=== PATIENT | male | born 1970 | race Caucasian/White ===

== ENCOUNTER 2018-04-24 09:13 | Emergency (ER) | payer SELFPAY ==
[~2018-04-24] VITALS: Ht 172.7 cm; Wt 111.6 kg
[2018-04-24 09:27] VITALS: BP 141/92
[2018-04-24] MEDS ORDERED: KETOROLAC TROMETH 60MG/2ML VIAL IM ONE (09:45)
== END 2018-04-24 10:21 | disposition home or self-care (01) ==
LOC: ER 09:13
DX: S66.912A Strain of unspecified muscle, fascia and tendon at wrist and hand level, left hand, initial encounter (principal); E11.9 Type 2 diabetes mellitus without complications; I10 Essential (primary) hypertension
CPT/HCPCS: 73130; 96372; 99284; J1885

== ENCOUNTER 2018-07-07 11:10 | Emergency (ER) | payer MEDICAID, OTHER ==
[~2018-07-07] VITALS: Ht 172.7 cm; Wt 113.4 kg
[2018-07-07] MEDS ORDERED: SODIUM CHLORIDE 0.9% 2,000 ML IV ONE (12:15)
[2018-07-07] MEDS ORDERED: TETANUS-DIPTH-ACEL PERTUSSIS 0.5ML SYRG IM ONE (12:15)
[2018-07-07 12:28] LABS: Basophils # (auto) 0.2 uL; Basophils % (auto) 1.3 % (0.0-2.0); Eosinophils # (auto) 0.3 uL; Eosinophils % (auto) 2.3 % (0.0-7.0); Hematocrit 40.5 % (41.0-53.0); Hemoglobin 14.1 g/dL (13.5-17.5); Lymphocytes # (auto) 3.6 uL; Lymphocytes % (auto) 30.3 % (10.0-50.0); Mean Corpuscular Hemoglobin 31.5 pg (28.0-32.0); Mean Corpuscular Hgb Conc. 34.9 g/dL (32.0-36.0); Mean Corpuscular Volume 90.4 fL (80.0-100.0); Monocytes # (auto) 0.9 uL; Monocytes % (auto) 7.7 % (0.0-12.0); Neutrophils % (auto) 58.4 % (37.0-80.0); Platelet Count (auto) 347 10^3/uL (140-450); Red Blood Cells 4.48 10^6/uL (4.5-5.90); Red Cell Distribution Width 13.7 % (11.8-14.3)
[2018-07-07 12:38] LABS: Albumin 3.6 g/dL (3.4-5.0); Anion Gap 11 (5-15); Calcium 9.6 mg/dL (8.5-10.1); Carbon Dioxide 26 mmol/L (21-32); Chloride 103 mmol/L (98-107); Glucose 154 mg/dL (74-106); Potassium 4.2 mmol/L (3.5-5.1); Sodium 140 mmol/L (136-145)
[2018-07-07 12:43] LABS: Alanine Aminotransferase 44 U/L (16-61); Alkaline Phosphatase 65 U/L (45-117); Aspartate Aminotransferase 24 U/L (15-37); Bilirubin, Total 0.4 mg/dL (0.2-1.0); Blood Urea Nitrogen 35 mg/dL (7-18); GFR African American 64 mL/min; GFR Non-African American 53 mL/min; Total Protein 7.1 g/dL (6.4-8.2)
[2018-07-07] MEDS ORDERED: LIDOCAINE 2% (LOCAL ANESTH.) PF 5ml SDV ONE (13:10)
[2018-07-07] MEDS ORDERED: cefTRIAXone 1GM/10ml IVPUSH 10 ML IV ONE (13:30)
[2018-07-07] MEDS ORDERED: LIDOCAINE 2% (LOCAL ANESTH.) PF 5ml SDV IJ ONE (13:30)
[2018-07-07 13:49] VITALS: BP 114/69
== END 2018-07-07 14:22 | disposition home or self-care (01) ==
LOC: ER 11:12
DX: S61.211A Laceration without foreign body of left index finger without damage to nail, initial encounter (principal); E11.9 Type 2 diabetes mellitus without complications; I10 Essential (primary) hypertension; R42 Dizziness and giddiness; X58.XXXA Exposure to other specified factors, initial encounter; Y93.89 Activity, other specified; Y92.89 Other specified places as the place of occurrence of the external cause; Y99.8 Other external cause status
CPT/HCPCS: 12001; 36415; 73130; 74176; 80053; 82962; 84484; 85025; 90471; 90715; 93005; 96361; 96374; 99285; J0696; J2001; J7030

== ENCOUNTER 2018-08-30 10:19 | Emergency (ER) | payer MEDICAID ==
[~2018-08-30] VITALS: Ht 172.7 cm; Wt 113.4 kg
[2018-08-30] MEDS ORDERED: SODIUM CHLORIDE 0.9% 1,000 ML IV ONE ×2 (10:58)
[2018-08-30] MEDS ORDERED: InsuLIN REG 1unit/0.01ml Soln (100units/ml) IV ONE (11:15)
[2018-08-30 11:33] LABS: Basophils # (auto) 0.1 uL; Basophils % (auto) 1.2 % (0.0-2.0); Eosinophils # (auto) 0.2 uL; Eosinophils % (auto) 1.8 % (0.0-7.0); Hematocrit 45.3 % (41.0-53.0); Hemoglobin 15.9 g/dL (13.5-17.5); Lymphocytes # (auto) 2.3 uL; Mean Corpuscular Hgb Conc. 35.1 g/dL (32.0-36.0); Mean Corpuscular Volume 88.4 fL (80.0-100.0); Monocytes # (auto) 0.5 uL; Monocytes % (auto) 5.3 % (0.0-12.0); Neutrophils # (auto) 7.2 uL; Neutrophils % (auto) 69.7 % (37.0-80.0); Nucleated Red Blood Cells % 0.2 %; Platelet Count (auto) 296 10^3/uL (140-450); Red Blood Cells 5.12 10^6/uL (4.5-5.90); Red Cell Distribution Width 13.2 % (11.8-14.3); White Blood Cell 10.3 10^3/uL (4.4-10.8)
[2018-08-30 11:34] LABS: Albumin 3.9 g/dL (3.4-5.0); BUN/Creatinine Ratio 13.7; Calcium 8.9 mg/dL (8.5-10.1); Potassium 4.4 mmol/L (3.5-5.1)
[2018-08-30 11:36] LABS: Bilirubin, Total 0.3 mg/dL (0.2-1.0); Total Protein 7.7 g/dL (6.4-8.2)
[2018-08-30 12:14] LABS: Urine Bacteria FEW /hpf (None Seen); Urine Blood Negative /uL (Negative); Urine Specific Gravity 1.026 (1.001-1.035); Urine WBC 2 /hpf (0 - 3)
[2018-08-30 13:48] VITALS: BP 128/80
== END 2018-08-30 13:54 | disposition home or self-care (01) ==
LOC: ER 10:19
DX: E11.65 Type 2 diabetes mellitus with hyperglycemia (principal); I10 Essential (primary) hypertension; Z87.891 Personal history of nicotine dependence; Z79.84 Long term (current) use of oral hypoglycemic drugs
CPT/HCPCS: 36415; 70450; 80053; 81001; 82962; 85025; 96361; 96374; 99285; J1815; J7030

== ENCOUNTER 2019-11-20 07:16 | Emergency (ER) | payer MEDICAID ==
[~2019-11-20] VITALS: Ht 172.7 cm; Wt 97.5 kg
[2019-11-20] MEDS ORDERED: cloNIDine HCL 0.1 MG TAB ONE (07:30)
[2019-11-20] MEDS ORDERED: cloNIDine HCL 0.1 MG TAB PO ONE (07:45)
[2019-11-20 07:49] LABS: Urine Bacteria FEW /hpf (None Seen); Urine Blood Negative /uL (Negative); Urine Specific Gravity 1.019 (1.001-1.035); Urine WBC 77 /hpf (0 - 3)
[2019-11-20 08:22] LABS: Hemoglobin 17.7 g/dL (13.5-17.5); Lymphocytes # (auto) 1.4 uL; Mean Corpuscular Hemoglobin 33.1 pg (28.0-32.0); Neutrophils # (auto) 6.8 uL; Red Blood Cells 5.34 10^6/uL (4.5-5.90)
[2019-11-20 08:23] LABS: Basophils # (auto) 0.1 uL; Basophils % (auto) 1.1 % (0.0-2.0); Eosinophils # (auto) 0.1 uL; Eosinophils % (auto) 0.7 % (0.0-7.0); Hematocrit 50.8 % (41.0-53.0); Lymphocytes % (auto) 15.7 % (10.0-50.0); Mean Corpuscular Hgb Conc. 34.8 g/dL (32.0-36.0); Mean Corpuscular Volume 95.2 fL (80.0-100.0); Monocytes # (auto) 0.6 uL; Monocytes % (auto) 6.5 % (0.0-12.0); Nucleated Red Blood Cells % 0.1 %; Platelet Count (auto) 264 10^3/uL (140-450); Red Cell Distribution Width 14.1 % (11.8-14.3)
[2019-11-20 08:31] LABS: Albumin 3.8 g/dL (3.4-5.0); Calcium 8.8 mg/dL (8.5-10.1); Potassium 3.8 mmol/L (3.5-5.1)
[2019-11-20 08:36] LABS: BUN/Creatinine Ratio 15.6; Bilirubin, Total 0.6 mg/dL (0.2-1.0); Total Protein 7.1 g/dL (6.4-8.2)
[2019-11-20] MEDS ORDERED: LABETALOL HCL 5 MG/ML 4ML SYRINGE IV ONE (09:00)
[2019-11-20 10:22] VITALS: BP 159/101
[2019-11-20] MEDS ORDERED: hydrALAZINE HCL 20 MG/ML VL IV ONE (10:45)
[2019-11-20] MEDS ORDERED: CIPROFLOXACIN HCL 500 MG TAB PO ONE (11:00)
== END 2019-11-20 11:14 | disposition home or self-care (01) ==
LOC: ER 07:16
DX: N39.0 Urinary tract infection, site not specified (principal); I10 Essential (primary) hypertension; E11.9 Type 2 diabetes mellitus without complications; E78.5 Hyperlipidemia, unspecified; F17.210 Nicotine dependence, cigarettes, uncomplicated
CPT/HCPCS: 36415; 74176; 80053; 81001; 83880; 84154; 84484; 85025; 96374; 96375; 99284; J0360; J3490

== ENCOUNTER 2019-12-25 01:57 | Emergency (ER) | payer MEDICAID ==
[~2019-12-25] VITALS: Ht 172.7 cm; Wt 113.4 kg
[2019-12-25 03:21] VITALS: BP 168/103
[2019-12-25] MEDS ORDERED: cloNIDine HCL 0.1 MG TAB ONE (03:29)
[2019-12-25] MEDS ORDERED: cloNIDine HCL 0.1 MG TAB PO ONE (03:30)
== END 2019-12-25 04:52 | disposition home or self-care (01) ==
LOC: ER 02:00
DX: J11.1 Influenza due to unidentified influenza virus with other respiratory manifestations (principal); I10 Essential (primary) hypertension; E78.5 Hyperlipidemia, unspecified; E11.9 Type 2 diabetes mellitus without complications; F17.210 Nicotine dependence, cigarettes, uncomplicated
CPT/HCPCS: 71045

== ENCOUNTER 2023-07-20 14:11 | Emergency (ER) | payer MEDICAID ==
[~2023-07-20] VITALS: Ht 172.7 cm; Wt 116.5 kg
[2023-07-20 14:13] VITALS: RESP 16; TEMP 98; O2SAT 10
[2023-07-20] MEDS ORDERED: HYDR-4902 PO (15:54)
[2023-07-20] MEDS ORDERED: CYCL-839 PO (15:54)
[2023-07-20] MEDS ORDERED: HYDROcodone-ACET 5/325MG TAB PO ONE (16:00)
[2023-07-20] MEDS ORDERED: KETOROLAC TROMETH 60MG/2ML VIAL IM ONE (16:00)
[2023-07-20 17:55] VITALS: BP 110/70; PULSE 84
== END 2023-07-20 19:27 | disposition home or self-care (01) ==
LOC: ER 14:11
DX: G89.29 Other chronic pain (principal); M54.59 Other low back pain; M62.830 Muscle spasm of back; E11.9 Type 2 diabetes mellitus without complications; I10 Essential (primary) hypertension; E78.5 Hyperlipidemia, unspecified; F17.210 Nicotine dependence, cigarettes, uncomplicated; Z76.0 Encounter for issue of repeat prescription
CPT/HCPCS: 96372; 99283; J1885

== ENCOUNTER 2023-10-25 23:12 | Inpatient (IN) | payer MEDICAID ==
[~2023-10-25] VITALS: Ht 172.7 cm; Wt 120.3 kg
[~2023-10-25 23:12] MED LIST: CYCL-839 PO; HYDR-4902 PO
[2023-10-25] MEDS ORDERED: ALBUTEROL SULF 2.5 MG/0.5ML(0.5%) NEB SOLN NEB ONE (23:45)
[2023-10-25] MEDS ORDERED: IPRATROPIUM BROM 0.5 MG/2.5ML INH SOL NEB ONE (23:45)
[2023-10-26] VITALS (9 sets, daily range): BP systolic 169–187; BP diastolic 99–127; PULSE 90–99; RESP 12–20; TEMP 98–98.6; O2SAT 4–96
[2023-10-26 00:08] LABS: Basophils # (auto) 0.1 10 ^3/uL (0-0.2); Eosinophils # (auto) 0.1 10 ^3/uL (0-0.8); Eosinophils % (auto) 1.1 % (0.0-7.0); Hematocrit 53.9 % (41.0-53.0); Hemoglobin 17.9 g/dL (13.5-17.5); Lymphocytes # (auto) 2.6 10 ^3/uL (0.4-5.4); Lymphocytes % (auto) 31.2 % (10.0-50.0); Mean Corpuscular Hemoglobin 33.6 pg (28.0-32.0); Mean Corpuscular Hgb Conc. 33.2 g/dL (32.0-36.0); Mean Corpuscular Volume 101.1 fL (80.0-100.0); Monocytes # (auto) 0.9 10 ^3/uL (0-1.3); Monocytes % (auto) 10.5 % (0.0-12.0); Neutrophils # (auto) 4.8 10 ^3/uL (1.6-8.6); Neutrophils % (auto) 56.2 % (37.0-80.0); Nucleated Red Blood Cells % 0.3 %; Red Blood Cells 5.33 10^6/uL (4.5-5.90); Red Cell Distribution Width 16.9 % (11.8-14.3); White Blood Cell 8.5 10^3/uL (4.4-10.8)
[2023-10-26 00:20] LABS: Alanine Aminotransferase 75 U/L (7-40); Albumin 4.2 g/dL (3.2-4.8); Alkaline Phosphatase 153 U/L (46-116); Anion Gap 4 (5-15); Aspartate Aminotransferase 74 U/L (13-40); BUN/Creatinine Ratio 11.9 (10.0-20.0); Bilirubin, Total 0.3 mg/dL (0.2-1.0); Blood Urea Nitrogen 13 mg/dL (9-23); Calcium 8.9 mg/dL (8.7-10.4); Carbon Dioxide 32 mmol/L (20-30); Chloride 107 mmol/L (98-107); Glucose 119 mg/dL (74-106); Magnesium 1.8 mg/dL (1.6-2.6); Potassium 4.2 mmol/L (3.5-5.1); Sodium 143 mmol/L (136-145); Total Protein 6.6 g/dL (5.7-8.2)
[2023-10-26] MEDS ORDERED: NICOTINE 21MG/24 HR TOPICAL PATCH TD ONE (02:45)
[2023-10-26] MEDS ORDERED: FUROSEMIDE 40 MG/4 ML VIAL IV ONE ×2 (05:00→09:45)
[2023-10-26] MEDS ORDERED: ENOXAPARIN SOD 100 MG/1 ML SYRINGE SC ONE (05:00)
[2023-10-26 09:50] LABS: Basophils # (auto) 0.1 10 ^3/uL (0-0.2); Basophils % (auto) 0.9 % (0.0-2.0); Eosinophils # (auto) 0.1 10 ^3/uL (0-0.8); Hematocrit 52.2 % (41.0-53.0); Hemoglobin 17.5 g/dL (13.5-17.5); Lymphocytes # (auto) 1.6 10 ^3/uL (0.4-5.4); Lymphocytes % (auto) 23.6 % (10.0-50.0); Mean Corpuscular Hemoglobin 33.7 pg (28.0-32.0); Mean Corpuscular Hgb Conc. 33.6 g/dL (32.0-36.0); Mean Corpuscular Volume 100.4 fL (80.0-100.0); Monocytes # (auto) 0.7 10 ^3/uL (0-1.3); Monocytes % (auto) 9.5 % (0.0-12.0); Neutrophils # (auto) 4.5 10 ^3/uL (1.6-8.6); Nucleated Red Blood Cells % 0.1 %; Red Cell Distribution Width 16.5 % (11.8-14.3); White Blood Cell 6.9 10^3/uL (4.4-10.8)
[2023-10-26] MEDS ORDERED: ACETAMINOPHEN 325 MG TAB PO PRN (10:00)
[2023-10-26] MEDS ORDERED: LISINOPRIL 20 MG TAB PO SCH (10:00)
[2023-10-26] MEDS ORDERED: DEXTROSE (50%) 50ML SYRG IV PRN (10:00)
[2023-10-26] MEDS: IPRATROPIUM BROM 0.5 MG/2.5ML INH SOL NEB SCH ×4 (10:00→22:15)
[2023-10-26] MEDS ORDERED: ENALAPRIL MALEATE 2.5 MG TAB PO SCH (10:00)
[2023-10-26] MEDS ORDERED: MORPHINE SULFATE INJ 2 MG/ml SYRG IV PRN ×2 (10:00)
[2023-10-26] MEDS ORDERED: NITROGLYCERIN 0.4 MG SL TAB SL PRN (10:00)
[2023-10-26] MEDS ORDERED: CARVEDILOL 3.125 MG TAB PO SCH (10:00)
[2023-10-26 10:12] LABS: Alanine Aminotransferase 72 U/L (7-40); Albumin 4.1 g/dL (3.2-4.8); Alkaline Phosphatase 149 U/L (46-116); Anion Gap 8 (5-15); Aspartate Aminotransferase 62 U/L (13-40); Blood Urea Nitrogen 11 mg/dL (9-23); Calcium 9.1 mg/dL (8.5-10.1); Carbon Dioxide 30 mmol/L (20-30); Chloride 103 mmol/L (98-107); Cholesterol 140 mg/dL (< 200); Glucose 98 mg/dL (74-106); INR 1.11 (0.9-1.15); LDL Cholesterol 58 mg/dL (< 100); Partial Thromboplastin Time 32.5 SEC (24.5-34.5); Potassium 3.8 mmol/L (3.5-5.1); Prothrombin Time 11.6 sec (9.3-11.8); Sodium 141 mmol/L (136-145); Triglycerides 66 mg/dL (< 150)
[2023-10-26 10:13] LABS: Bilirubin, Total 0.5 mg/dL (0.2-1.0); HDL Cholesterol 66 mg/dL (40-59); Total Protein 6.5 g/dL (5.7-8.2)
[2023-10-26 10:27] LABS: Magnesium 1.5 mg/dL (1.6-2.6)
[2023-10-26] MEDS: NICOTINE 21MG/24 HR TOPICAL PATCH TD SCH (10:34)
[2023-10-26] MEDS: GABAPENTIN 100 MG CAP PO SCH (10:34)
[2023-10-26] MEDS: DULoxetine HCL 30 MG CAP PO SCH (10:35)
[2023-10-26] MEDS: ALLOPURINOL 100 MG TAB PO SCH (10:35)
[2023-10-26] MEDS: LORazepam 0.5 MG TAB PO PRN (11:08)
[2023-10-26 11:54] LABS: Urine Bacteria NONE SEEN /hpf (None Seen); Urine Blood Negative /uL (Negative); Urine Clarity Clear (Clear); Urine Protein, UAD Negative (Negative); Urine Urobilinogen Normal (Negative); Urine WBC <1 /hpf (0 - 3)
[2023-10-26 11:55] LABS: Urine Color Straw (Yellow)
[2023-10-26] MEDS: InsuLIN REG 1unit/0.01ml Soln (100units/ml) SC SCH ×3 (11:56→23:27)
[2023-10-26] MEDS: ACCU-CHEK COMFORT CURVE STRIP VI SCH ×3 (11:56→23:29)
[2023-10-26 12:03] LABS: Amphetamine Screen, Urine Neg (NEGATIVE); Barbiturate Scree,Urine Neg (NEGATIVE); Benzodiazephine Screen, Urine Neg (NEGATIVE); Cannabinoid Screen, Urine Neg (NEGATIVE); Cocaine Screen, Urine Neg (NEGATIVE); Opiate Scree,Urine Neg (NEGATIVE); Phencyclidine Screen, Urine Neg (NEGATIVE)
[2023-10-26] MEDS ORDERED: hydrALAZINE HCL 20 MG/ML VL IV PRN (13:30)
[2023-10-26] MEDS: BUDESONIDE (INHALATION) 0.5 MG/2 ML NEB NEB SCH ×2 (13:55→18:18)
[2023-10-26] MEDS: FUROSEMIDE 40 MG/4 ML VIAL IV SCH ×2 (15:09→21:41)
[2023-10-26] MEDS ORDERED: ASPirin 81 mg TAB PO ONE (15:15)
[2023-10-26] MEDS ORDERED: MAGNESIUM SULFATE 1GM/100ML 100 ML IV ONE ×2 (15:15→18:30)
[2023-10-26] MEDS: HYDROcodone-ACET 5/325MG TAB PO PRN (16:07)
[2023-10-26] MEDS ORDERED: FUROSEMIDE 40 MG/4 ML VIAL IV SCH (18:00)
[2023-10-26] MEDS: ERGOCALCIFEROL 50,000 UNIT(1.25MG) CAP PO SCH (18:30)
[2023-10-26] MEDS: CARVEDILOL 12.5 MG TAB PO SCH (21:41)
[2023-10-26] MEDS: ATORVASTATIN 20 MG TAB PO SCH (21:42)
[2023-10-26] MEDS ORDERED: ENOXAPARIN SOD 100 MG/1 ML SYRINGE SC SCH (22:00)
[2023-10-26] MEDS: ENOXAPARIN SOD 150 MG/1 ML SYRINGE SC SCH (22:12)
[2023-10-27] VITALS (23 sets, daily range): BP systolic 105–141; BP diastolic 68–93; PULSE 63–82; RESP 14–22; TEMP 97.1–98.2; O2SAT 92–100
[2023-10-27] MEDS: LORazepam 0.5 MG TAB PO PRN (02:45)
[2023-10-27] MEDS: FUROSEMIDE 40 MG/4 ML VIAL IV SCH ×3 (05:06→21:43)
[2023-10-27] MEDS: EMPAGLIFLOZIN 10 MG TAB PO SCH (05:06)
[2023-10-27] MEDS: ACCU-CHEK COMFORT CURVE STRIP VI SCH ×4 (05:06→22:59)
[2023-10-27] MEDS: InsuLIN REG 1unit/0.01ml Soln (100units/ml) SC SCH ×4 (05:06→23:12)
[2023-10-27 06:51] LABS: Basophils # (auto) 0.1 10 ^3/uL (0-0.2); Basophils % (auto) 0.7 % (0.0-2.0); Eosinophils # (auto) 0.1 10 ^3/uL (0-0.8); Eosinophils % (auto) 0.7 % (0.0-7.0); Hematocrit 51.4 % (41.0-53.0); Lymphocytes # (auto) 1.6 10 ^3/uL (0.4-5.4); Mean Corpuscular Hemoglobin 33.1 pg (28.0-32.0); Mean Corpuscular Hgb Conc. 33.1 g/dL (32.0-36.0); Mean Corpuscular Volume 100.1 fL (80.0-100.0); Monocytes # (auto) 0.8 10 ^3/uL (0-1.3); Monocytes % (auto) 9.7 % (0.0-12.0); Neutrophils # (auto) 5.5 10 ^3/uL (1.6-8.6); Neutrophils % (auto) 68.9 % (37.0-80.0); Nucleated Red Blood Cells % 0.2 %; Red Blood Cells 5.13 10^6/uL (4.5-5.90); Red Cell Distribution Width 16.3 % (11.8-14.3)
[2023-10-27] MEDS: IPRATROPIUM BROM 0.5 MG/2.5ML INH SOL NEB SCH ×5 (06:58→22:17)
[2023-10-27] MEDS: BUDESONIDE (INHALATION) 0.5 MG/2 ML NEB NEB SCH ×2 (06:58→22:17)
[2023-10-27 07:01] LABS: Alanine Aminotransferase 55 U/L (7-40); Albumin 3.9 g/dL (3.2-4.8); Alkaline Phosphatase 141 U/L (46-116); Anion Gap 6 (5-15); Aspartate Aminotransferase 38 U/L (13-40); BUN/Creatinine Ratio 10.2 (10.0-20.0); Blood Urea Nitrogen 12 mg/dL (9-23); Calcium 8.8 mg/dL (8.7-10.4); Carbon Dioxide 34 mmol/L (20-30); Chloride 97 mmol/L (98-107); Glucose 94 mg/dL (74-106); Magnesium 1.6 mg/dL (1.6-2.6); Potassium 3.6 mmol/L (3.5-5.1); Sodium 137 mmol/L (136-145)
[2023-10-27 07:02] LABS: Bilirubin, Total 1.7 mg/dL (0.2-1.0); Total Protein 6.2 g/dL (5.7-8.2)
[2023-10-27] MEDS ORDERED: ERGOCALCIFEROL 50,000 UNIT(1.25MG) CAP PO SCH (09:00)
[2023-10-27] MEDS: ASPirin 81 mg TAB PO SCH (09:12)
[2023-10-27] MEDS: DULoxetine HCL 30 MG CAP PO SCH (09:13)
[2023-10-27] MEDS: CARVEDILOL 12.5 MG TAB PO SCH (09:13)
[2023-10-27] MEDS: GABAPENTIN 100 MG CAP PO SCH (09:13)
[2023-10-27] MEDS: NICOTINE 21MG/24 HR TOPICAL PATCH TD SCH (09:14)
[2023-10-27] MEDS: ENOXAPARIN SOD 150 MG/1 ML SYRINGE SC SCH ×2 (09:14→21:43)
[2023-10-27] MEDS: ALLOPURINOL 100 MG TAB PO SCH (09:14)
[2023-10-27] MEDS ORDERED: LISINOPRIL 20 MG TAB PO SCH (10:00)
[2023-10-27] MEDS: HYDROcodone-ACET 5/325MG TAB PO PRN (14:54)
[2023-10-27] MEDS: ATORVASTATIN 20 MG TAB PO SCH (21:42)
[2023-10-27] MEDS: CARVEDILOL 3.125 MG TAB PO SCH (22:59)
[2023-10-28] VITALS (24 sets, daily range): BP systolic 110–112; BP diastolic 69–77; PULSE 70–92; RESP 16–22; TEMP 97.4–97.9; O2SAT 93–98
[2023-10-28] MEDS: EMPAGLIFLOZIN 10 MG TAB PO SCH (06:00)
[2023-10-28] MEDS: InsuLIN REG 1unit/0.01ml Soln (100units/ml) SC SCH ×4 (06:00→23:31)
[2023-10-28] MEDS: ACCU-CHEK COMFORT CURVE STRIP VI SCH ×4 (06:00→23:14)
[2023-10-28] MEDS: FUROSEMIDE 40 MG/4 ML VIAL IV SCH ×3 (06:00→22:19)
[2023-10-28 06:47] LABS: Basophils # (auto) 0 10 ^3/uL (0-0.2); Eosinophils # (auto) 0.1 10 ^3/uL (0-0.8); Nucleated Red Blood Cells % 0.1 %
[2023-10-28 06:50] LABS: Basophils % (auto) 0.7 % (0.0-2.0); Eosinophils % (auto) 0.9 % (0.0-7.0); Hematocrit 50.8 % (41.0-53.0); Hemoglobin 16.7 g/dL (13.5-17.5); Lymphocytes # (auto) 1.9 10 ^3/uL (0.4-5.4); Lymphocytes % (auto) 26.6 % (10.0-50.0); Mean Corpuscular Hgb Conc. 32.8 g/dL (32.0-36.0); Mean Corpuscular Volume 100.6 fL (80.0-100.0); Monocytes # (auto) 0.7 10 ^3/uL (0-1.3); Monocytes % (auto) 9.3 % (0.0-12.0); Neutrophils # (auto) 4.6 10 ^3/uL (1.6-8.6); Neutrophils % (auto) 62.5 % (37.0-80.0); Red Blood Cells 5.06 10^6/uL (4.5-5.90); Red Cell Distribution Width 16.5 % (11.8-14.3); White Blood Cell 7.3 10^3/uL (4.4-10.8)
[2023-10-28 07:24] LABS: Alanine Aminotransferase 40 U/L (7-40); Alkaline Phosphatase 124 U/L (46-116); Anion Gap 3 (5-15); BUN/Creatinine Ratio 11.8 (10.0-20.0); Blood Urea Nitrogen 16 mg/dL (9-23); Calcium 9.1 mg/dL (8.7-10.4); Carbon Dioxide 37 mmol/L (20-30); Chloride 97 mmol/L (98-107); Glucose 72 mg/dL (74-106); Magnesium 1.7 mg/dL (1.6-2.6); Potassium 3.6 mmol/L (3.5-5.1); Sodium 137 mmol/L (136-145)
[2023-10-28 07:25] LABS: Albumin 3.9 g/dL (3.2-4.8); Aspartate Aminotransferase 25 U/L (13-40)
[2023-10-28 07:26] LABS: Bilirubin, Total 1.5 mg/dL (0.2-1.0); Total Protein 6.3 g/dL (5.7-8.2)
[2023-10-28] MEDS: IPRATROPIUM BROM 0.5 MG/2.5ML INH SOL NEB SCH ×4 (09:27→22:38)
[2023-10-28] MEDS: BUDESONIDE (INHALATION) 0.5 MG/2 ML NEB NEB SCH ×2 (09:28→18:22)
[2023-10-28 09:38] LABS: Hepatitis B Surface Antigen Negative (Negative)
[2023-10-28 10:00] LABS: Hepatitis C Antibody Negative (Negative)
[2023-10-28] MEDS ORDERED: LISINOPRIL 20 MG TAB PO SCH (10:00)
[2023-10-28] MEDS: ASPirin 81 mg TAB PO SCH (10:13)
[2023-10-28] MEDS: CARVEDILOL 3.125 MG TAB PO SCH ×2 (10:14→23:13)
[2023-10-28] MEDS: GABAPENTIN 100 MG CAP PO SCH (10:15)
[2023-10-28] MEDS: ENOXAPARIN SOD 150 MG/1 ML SYRINGE SC SCH (10:15)
[2023-10-28] MEDS: ALLOPURINOL 100 MG TAB PO SCH (10:15)
[2023-10-28] MEDS: DULoxetine HCL 30 MG CAP PO SCH (10:15)
[2023-10-28] MEDS: LOSARTAN POTASSIUM 25 MG TAB PO SCH (10:15)
[2023-10-28] MEDS: NICOTINE 21MG/24 HR TOPICAL PATCH TD SCH (10:16)
[2023-10-28] MEDS: guaiFENesin-DM 100/10mg/5ml SYR PO PRN ×3 (10:16→22:19)
[2023-10-28] MEDS ORDERED: TAMSULOSIN HYDROCHLORIDE 0.4 MG CAP PO ONE (12:15)
[2023-10-28] MEDS: HYDROcodone-ACET 5/325MG TAB PO PRN ×2 (15:54→23:14)
[2023-10-28] MEDS ORDERED: TAMSULOSIN HYDROCHLORIDE 0.4 MG CAP PO SCH (18:00)
[2023-10-28] MEDS: TAMSULOSIN HYDROCHLORIDE 0.4 MG CAP PO SCH (18:06)
[2023-10-28] MEDS: ATORVASTATIN 20 MG TAB PO SCH (22:19)
[2023-10-29] VITALS (20 sets, daily range): BP systolic 103–116; BP diastolic 69–76; PULSE 71–94; RESP 18–20; TEMP 97.4–98.4; O2SAT 91–97
[2023-10-29] MEDS: guaiFENesin-DM 100/10mg/5ml SYR PO PRN ×4 (03:16→21:23)
[2023-10-29] MEDS: HYDROcodone-ACET 5/325MG TAB PO PRN ×4 (05:21→21:19)
[2023-10-29] MEDS: ACCU-CHEK COMFORT CURVE STRIP VI SCH ×4 (05:25→21:23)
[2023-10-29] MEDS: FUROSEMIDE 40 MG/4 ML VIAL IV SCH ×3 (05:25→17:48)
[2023-10-29] MEDS: EMPAGLIFLOZIN 10 MG TAB PO SCH (05:27)
[2023-10-29] MEDS: InsuLIN REG 1unit/0.01ml Soln (100units/ml) SC SCH ×4 (05:39→21:23)
[2023-10-29 06:11] LABS: Basophils # (auto) 0 10 ^3/uL (0-0.2); Basophils % (auto) 0.5 % (0.0-2.0); Eosinophils # (auto) 0.1 10 ^3/uL (0-0.8); Hemoglobin 16.9 g/dL (13.5-17.5); Lymphocytes # (auto) 1.3 10 ^3/uL (0.4-5.4); Lymphocytes % (auto) 17.3 % (10.0-50.0); Mean Corpuscular Hgb Conc. 33.8 g/dL (32.0-36.0); Mean Corpuscular Volume 100.5 fL (80.0-100.0); Monocytes # (auto) 0.6 10 ^3/uL (0-1.3); Monocytes % (auto) 7.6 % (0.0-12.0); Neutrophils # (auto) 5.6 10 ^3/uL (1.6-8.6); Neutrophils % (auto) 73.6 % (37.0-80.0); Nucleated Red Blood Cells % 0.4 %; Red Blood Cells 4.98 10^6/uL (4.5-5.90); Red Cell Distribution Width 15.8 % (11.8-14.3); White Blood Cell 7.6 10^3/uL (4.4-10.8)
[2023-10-29 06:29] LABS: Alanine Aminotransferase 32 U/L (7-40); Albumin 3.9 g/dL (3.2-4.8); Alkaline Phosphatase 118 U/L (46-116); Anion Gap 5 (5-15); Aspartate Aminotransferase 25 U/L (13-40); BUN/Creatinine Ratio 11.5 (10.0-20.0); Bilirubin, Total 1.2 mg/dL (0.2-1.0); Blood Urea Nitrogen 18 mg/dL (9-23); Calcium 9.5 mg/dL (8.5-10.1); Carbon Dioxide 36 mmol/L (20-30); Chloride 93 mmol/L (98-107); Glucose 93 mg/dL (74-106); Sodium 134 mmol/L (136-145); Total Protein 6.1 g/dL (5.7-8.2)
[2023-10-29] MEDS: IPRATROPIUM BROM 0.5 MG/2.5ML INH SOL NEB SCH ×5 (07:07→22:11)
[2023-10-29] MEDS: BUDESONIDE (INHALATION) 0.5 MG/2 ML NEB NEB SCH ×2 (07:07→19:25)
[2023-10-29] MEDS ORDERED: GABAPENTIN 100 MG CAP ONE (10:31)
[2023-10-29] MEDS: ENOXAPARIN SOD 40 MG/0.4 ML SYRINGE SC SCH (10:32)
[2023-10-29] MEDS: GABAPENTIN 100 MG CAP PO SCH (10:32)
[2023-10-29] MEDS: NICOTINE 21MG/24 HR TOPICAL PATCH TD SCH (10:32)
[2023-10-29] MEDS: ALLOPURINOL 100 MG TAB PO SCH (10:33)
[2023-10-29] MEDS: DULoxetine HCL 30 MG CAP PO SCH (10:33)
[2023-10-29] MEDS: ASPirin 81 mg TAB PO SCH (10:33)
[2023-10-29] MEDS: LOSARTAN POTASSIUM 25 MG TAB PO SCH (10:34)
[2023-10-29] MEDS: CARVEDILOL 3.125 MG TAB PO SCH ×2 (10:34→21:20)
[2023-10-29] MEDS ORDERED: FINASTERIDE 5 MG TAB PO ONE (12:45)
[2023-10-29] MEDS ORDERED: FINASTERIDE 5 MG TAB ONE (14:17)
[2023-10-29] MEDS: TAMSULOSIN HYDROCHLORIDE 0.4 MG CAP PO SCH (17:48)
[2023-10-29] MEDS: ATORVASTATIN 20 MG TAB PO SCH (21:19)
[2023-10-30] VITALS (18 sets, daily range): BP systolic 101–126; BP diastolic 55–80; PULSE 68–88; RESP 16–18; TEMP 87.4–97.9; O2SAT 89–98
[2023-10-30] MEDS: EMPAGLIFLOZIN 10 MG TAB PO SCH (03:52)
[2023-10-30] MEDS: HYDROcodone-ACET 5/325MG TAB PO PRN ×4 (03:53→19:42)
[2023-10-30] MEDS: guaiFENesin-DM 100/10mg/5ml SYR PO PRN ×3 (03:54→21:49)
[2023-10-30] MEDS: FUROSEMIDE 40 MG/4 ML VIAL IV SCH ×2 (03:54→19:43)
[2023-10-30] MEDS: InsuLIN REG 1unit/0.01ml Soln (100units/ml) SC SCH ×4 (06:00→23:58)
[2023-10-30] MEDS: ACCU-CHEK COMFORT CURVE STRIP VI SCH ×4 (06:00→23:58)
[2023-10-30 06:10] LABS: Basophils # (auto) 0 10 ^3/uL (0-0.2); Basophils % (auto) 0.3 % (0.0-2.0); Eosinophils # (auto) 0.1 10 ^3/uL (0-0.8); Eosinophils % (auto) 0.9 % (0.0-7.0); Hematocrit 51.1 % (41.0-53.0); Hemoglobin 17.1 g/dL (13.5-17.5); Lymphocytes # (auto) 1.1 10 ^3/uL (0.4-5.4); Mean Corpuscular Hemoglobin 33.7 pg (28.0-32.0); Mean Corpuscular Hgb Conc. 33.5 g/dL (32.0-36.0); Mean Corpuscular Volume 100.6 fL (80.0-100.0); Monocytes # (auto) 0.6 10 ^3/uL (0-1.3); Monocytes % (auto) 7.4 % (0.0-12.0); Neutrophils # (auto) 6.4 10 ^3/uL (1.6-8.6); Neutrophils % (auto) 78.4 % (37.0-80.0); Nucleated Red Blood Cells % 0.3 %; Red Blood Cells 5.08 10^6/uL (4.5-5.90); Red Cell Distribution Width 16.3 % (11.8-14.3); White Blood Cell 8.2 10^3/uL (4.4-10.8)
[2023-10-30 06:27] LABS: Alanine Aminotransferase 35 U/L (7-40); Alkaline Phosphatase 120 U/L (46-116); Anion Gap 3 (5-15); Aspartate Aminotransferase 36 U/L (13-40); BUN/Creatinine Ratio 12.3 (10.0-20.0); Blood Urea Nitrogen 18 mg/dL (9-23); Calcium 9.1 mg/dL (8.7-10.4); Carbon Dioxide 36 mmol/L (20-30); Chloride 94 mmol/L (98-107); Glucose 99 mg/dL (74-106); Potassium 3.6 mmol/L (3.5-5.1); Sodium 133 mmol/L (136-145)
[2023-10-30 06:28] LABS: Bilirubin, Total 1.1 mg/dL (0.2-1.0); Total Protein 6.4 g/dL (5.7-8.2)
[2023-10-30] MEDS: IPRATROPIUM BROM 0.5 MG/2.5ML INH SOL NEB SCH ×4 (06:49→20:04)
[2023-10-30] MEDS: FINASTERIDE 5 MG TAB PO SCH (10:00)
[2023-10-30] MEDS: ASPirin 81 mg TAB PO SCH (10:41)
[2023-10-30] MEDS: ALLOPURINOL 100 MG TAB PO SCH (10:41)
[2023-10-30] MEDS: CARVEDILOL 3.125 MG TAB PO SCH ×2 (10:42→21:38)
[2023-10-30] MEDS: GABAPENTIN 100 MG CAP PO SCH (10:43)
[2023-10-30] MEDS: BUDESONIDE (INHALATION) 0.5 MG/2 ML NEB NEB SCH (10:43)
[2023-10-30] MEDS: LOSARTAN POTASSIUM 25 MG TAB PO SCH (10:43)
[2023-10-30] MEDS: DULoxetine HCL 30 MG CAP PO SCH (10:43)
[2023-10-30] MEDS: ENOXAPARIN SOD 40 MG/0.4 ML SYRINGE SC SCH (10:45)
[2023-10-30] MEDS: NICOTINE 21MG/24 HR TOPICAL PATCH TD SCH (10:45)
[2023-10-30] MEDS: TAMSULOSIN HYDROCHLORIDE 0.4 MG CAP PO SCH (19:41)
[2023-10-30] MEDS: ATORVASTATIN 20 MG TAB PO SCH (21:38)
[2023-10-31] VITALS (21 sets, daily range): BP systolic 111–125; BP diastolic 72–86; PULSE 69–95; RESP 16–20; TEMP 97.4–98.2; O2SAT 92–100
[2023-10-31] MEDS: IPRATROPIUM BROM 0.5 MG/2.5ML INH SOL NEB SCH ×6 (00:17→22:30)
[2023-10-31] MEDS: BUDESONIDE (INHALATION) 0.5 MG/2 ML NEB NEB SCH ×3 (00:17→18:55)
[2023-10-31] MEDS: guaiFENesin-DM 100/10mg/5ml SYR PO PRN ×4 (02:17→20:50)
[2023-10-31] MEDS: HYDROcodone-ACET 5/325MG TAB PO PRN ×4 (02:18→20:50)
[2023-10-31] MEDS: InsuLIN REG 1unit/0.01ml Soln (100units/ml) SC SCH ×4 (06:00→23:37)
[2023-10-31 06:32] LABS: Basophils # (auto) 0 10 ^3/uL (0-0.2); Eosinophils # (auto) 0.1 10 ^3/uL (0-0.8); Eosinophils % (auto) 0.8 % (0.0-7.0); Mean Corpuscular Volume 100.8 fL (80.0-100.0); Monocytes # (auto) 0.7 10 ^3/uL (0-1.3)
[2023-10-31 06:34] LABS: Basophils % (auto) 0.5 % (0.0-2.0); Hematocrit 50.7 % (41.0-53.0); Lymphocytes # (auto) 1.3 10 ^3/uL (0.4-5.4); Lymphocytes % (auto) 16.1 % (10.0-50.0); Mean Corpuscular Hemoglobin 33.8 pg (28.0-32.0); Mean Corpuscular Hgb Conc. 33.5 g/dL (32.0-36.0); Monocytes % (auto) 8.6 % (0.0-12.0); Neutrophils # (auto) 5.8 10 ^3/uL (1.6-8.6); Nucleated Red Blood Cells % 0.3 %; Red Blood Cells 5.03 10^6/uL (4.5-5.90); Red Cell Distribution Width 15.8 % (11.8-14.3); White Blood Cell 7.9 10^3/uL (4.4-10.8)
[2023-10-31 06:37] LABS: Anion Gap 4 (5-15); Carbon Dioxide 35 mmol/L (20-30); Chloride 95 mmol/L (98-107); Potassium 3.7 mmol/L (3.5-5.1); Sodium 134 mmol/L (136-145)
[2023-10-31 06:38] LABS: Calcium 9.4 mg/dL (8.7-10.4)
[2023-10-31 06:43] LABS: BUN/Creatinine Ratio 15.3 (10.0-20.0); Blood Urea Nitrogen 20 mg/dL (9-23); Glucose 104 mg/dL (74-106)
[2023-10-31] MEDS: EMPAGLIFLOZIN 10 MG TAB PO SCH (06:56)
[2023-10-31] MEDS: ACCU-CHEK COMFORT CURVE STRIP VI SCH ×4 (06:57→23:36)
[2023-10-31] MEDS: FUROSEMIDE 40 MG/4 ML VIAL IV SCH ×2 (07:00→17:28)
[2023-10-31] MEDS: GABAPENTIN 100 MG CAP PO SCH (10:47)
[2023-10-31] MEDS: ASPirin 81 mg TAB PO SCH (10:48)
[2023-10-31] MEDS: LOSARTAN POTASSIUM 25 MG TAB PO SCH (10:48)
[2023-10-31] MEDS: ALLOPURINOL 100 MG TAB PO SCH (10:48)
[2023-10-31] MEDS: CARVEDILOL 3.125 MG TAB PO SCH ×2 (10:49→22:27)
[2023-10-31] MEDS: FINASTERIDE 5 MG TAB PO SCH (10:49)
[2023-10-31] MEDS: ENOXAPARIN SOD 40 MG/0.4 ML SYRINGE SC SCH (10:49)
[2023-10-31] MEDS: DULoxetine HCL 30 MG CAP PO SCH (10:49)
[2023-10-31] MEDS: NICOTINE 21MG/24 HR TOPICAL PATCH TD SCH (10:50)
[2023-10-31] MEDS: TAMSULOSIN HYDROCHLORIDE 0.4 MG CAP PO SCH (17:28)
[2023-10-31] MEDS: ATORVASTATIN 20 MG TAB PO SCH (22:27)
[2023-11-01] VITALS (20 sets, daily range): BP systolic 95–118; BP diastolic 61–77; PULSE 62–88; RESP 16–22; TEMP 97.5–98.6; O2SAT 93–100
[2023-11-01] MEDS: guaiFENesin-DM 100/10mg/5ml SYR PO PRN ×2 (02:10→21:29)
[2023-11-01] MEDS: HYDROcodone-ACET 5/325MG TAB PO PRN ×2 (02:13→21:29)
[2023-11-01] MEDS: InsuLIN REG 1unit/0.01ml Soln (100units/ml) SC SCH ×3 (06:00→17:51)
[2023-11-01] MEDS: FUROSEMIDE 40 MG/4 ML VIAL IV SCH ×2 (06:00→18:18)
[2023-11-01] MEDS: ACCU-CHEK COMFORT CURVE STRIP VI SCH ×3 (06:29→17:51)
[2023-11-01] MEDS: IPRATROPIUM BROM 0.5 MG/2.5ML INH SOL NEB SCH ×5 (06:30→21:44)
[2023-11-01] MEDS: EMPAGLIFLOZIN 10 MG TAB PO SCH (06:30)
[2023-11-01] MEDS: BUDESONIDE (INHALATION) 0.5 MG/2 ML NEB NEB SCH ×2 (06:30→18:14)
[2023-11-01 06:57] LABS: Alanine Aminotransferase 36 U/L (7-40); Albumin 3.9 g/dL (3.2-4.8); Alkaline Phosphatase 111 U/L (46-116); Anion Gap 5 (5-15); Aspartate Aminotransferase 37 U/L (13-40); BUN/Creatinine Ratio 15.1 (10.0-20.0); Bilirubin, Total 0.7 mg/dL (0.2-1.0); Blood Urea Nitrogen 19 mg/dL (9-23); Calcium 9.5 mg/dL (8.7-10.4); Carbon Dioxide 36 mmol/L (20-30); Chloride 94 mmol/L (98-107); Glucose 94 mg/dL (74-106); Potassium 3.3 mmol/L (3.5-5.1); Sodium 135 mmol/L (136-145); Total Protein 6.2 g/dL (5.7-8.2)
[2023-11-01 07:06] LABS: Basophils # (auto) 0 10 ^3/uL (0-0.2); Basophils % (auto) 0.5 % (0.0-2.0); Eosinophils # (auto) 0.1 10 ^3/uL (0-0.8); Eosinophils % (auto) 0.8 % (0.0-7.0); Hemoglobin 16.9 g/dL (13.5-17.5); Lymphocytes # (auto) 1.5 10 ^3/uL (0.4-5.4); Lymphocytes % (auto) 18.5 % (10.0-50.0); Mean Corpuscular Hgb Conc. 33.8 g/dL (32.0-36.0); Mean Corpuscular Volume 100.5 fL (80.0-100.0); Monocytes # (auto) 0.8 10 ^3/uL (0-1.3); Monocytes % (auto) 9.9 % (0.0-12.0); Neutrophils # (auto) 5.5 10 ^3/uL (1.6-8.6); Neutrophils % (auto) 70.3 % (37.0-80.0); Red Blood Cells 4.97 10^6/uL (4.5-5.90); Red Cell Distribution Width 15.5 % (11.8-14.3); White Blood Cell 7.9 10^3/uL (4.4-10.8)
[2023-11-01] MEDS ORDERED: POTASSIUM CHLORIDE 20 MEQ, LIDOCAINE 1% (LOCAL ANESTH.) 2 ML in SODIUM CHL 0.9% 100 ML IV ONE (07:30)
[2023-11-01] MEDS: DULoxetine HCL 30 MG CAP PO SCH (10:32)
[2023-11-01] MEDS: GABAPENTIN 100 MG CAP PO SCH (10:32)
[2023-11-01] MEDS: ASPirin 81 mg TAB PO SCH (10:32)
[2023-11-01] MEDS: ALLOPURINOL 100 MG TAB PO SCH (10:32)
[2023-11-01] MEDS: LOSARTAN POTASSIUM 25 MG TAB PO SCH (10:33)
[2023-11-01] MEDS: CARVEDILOL 3.125 MG TAB PO SCH ×2 (10:33→22:13)
[2023-11-01] MEDS: FINASTERIDE 5 MG TAB PO SCH (10:33)
[2023-11-01] MEDS: NICOTINE 21MG/24 HR TOPICAL PATCH TD SCH (10:34)
[2023-11-01] MEDS: ENOXAPARIN SOD 40 MG/0.4 ML SYRINGE SC SCH (10:34)
[2023-11-01] MEDS ORDERED: acetaZOLAMIDE SODIUM 500 MG VL IV ONE (13:45)
[2023-11-01] MEDS: TAMSULOSIN HYDROCHLORIDE 0.4 MG CAP PO SCH (18:17)
[2023-11-01] MEDS: ATORVASTATIN 20 MG TAB PO SCH (22:13)
[2023-11-02] VITALS (15 sets, daily range): BP systolic 95–109; BP diastolic 58–71; PULSE 61–79; RESP 16–21; TEMP 96.5–98.2; O2SAT 91–100
[2023-11-02] MEDS: guaiFENesin-DM 100/10mg/5ml SYR PO PRN ×3 (02:04→20:26)
[2023-11-02] MEDS: HYDROcodone-ACET 5/325MG TAB PO PRN ×3 (02:05→20:26)
[2023-11-02] MEDS: InsuLIN REG 1unit/0.01ml Soln (100units/ml) SC SCH ×4 (06:00→17:22)
[2023-11-02] MEDS: ACCU-CHEK COMFORT CURVE STRIP VI SCH ×4 (06:26→17:22)
[2023-11-02] MEDS: EMPAGLIFLOZIN 10 MG TAB PO SCH (06:37)
[2023-11-02] MEDS: FUROSEMIDE 40 MG/4 ML VIAL IV SCH (06:37)
[2023-11-02 06:59] LABS: Basophils # (auto) 0 10 ^3/uL (0-0.2); Basophils % (auto) 0.6 % (0.0-2.0); Eosinophils # (auto) 0.1 10 ^3/uL (0-0.8); Hematocrit 51.6 % (41.0-53.0); Hemoglobin 17.5 g/dL (13.5-17.5); Lymphocytes # (auto) 1.3 10 ^3/uL (0.4-5.4); Lymphocytes % (auto) 19.1 % (10.0-50.0); Mean Corpuscular Hemoglobin 34.1 pg (28.0-32.0); Mean Corpuscular Hgb Conc. 33.9 g/dL (32.0-36.0); Mean Corpuscular Volume 100.6 fL (80.0-100.0); Monocytes # (auto) 0.7 10 ^3/uL (0-1.3); Monocytes % (auto) 9.7 % (0.0-12.0); Neutrophils # (auto) 4.9 10 ^3/uL (1.6-8.6); Neutrophils % (auto) 69.6 % (37.0-80.0); Nucleated Red Blood Cells % 0.1 %; Red Blood Cells 5.12 10^6/uL (4.5-5.90); Red Cell Distribution Width 15.6 % (11.8-14.3)
[2023-11-02 07:12] LABS: Alanine Aminotransferase 43 U/L (7-40); Albumin 4.2 g/dL (3.2-4.8); Alkaline Phosphatase 113 U/L (46-116); Anion Gap 3 (5-15); Aspartate Aminotransferase 38 U/L (13-40); BUN/Creatinine Ratio 14.1 (10.0-20.0); Blood Urea Nitrogen 19 mg/dL (9-23); Calcium 9.8 mg/dL (8.7-10.4); Carbon Dioxide 34 mmol/L (20-30); Chloride 98 mmol/L (98-107); Glucose 111 mg/dL (74-106); Potassium 3.6 mmol/L (3.5-5.1); Sodium 135 mmol/L (136-145)
[2023-11-02 07:13] LABS: Bilirubin, Total 0.7 mg/dL (0.2-1.0); Total Protein 6.6 g/dL (5.7-8.2)
[2023-11-02] MEDS: IPRATROPIUM BROM 0.5 MG/2.5ML INH SOL NEB SCH ×5 (07:25→22:12)
[2023-11-02] MEDS: BUDESONIDE (INHALATION) 0.5 MG/2 ML NEB NEB SCH ×2 (07:25→18:32)
[2023-11-02] MEDS: acetaZOLAMIDE SODIUM 500 MG VL IV SCH (10:24)
[2023-11-02] MEDS: ASPirin 81 mg TAB PO SCH (10:25)
[2023-11-02] MEDS: ALLOPURINOL 100 MG TAB PO SCH (10:25)
[2023-11-02] MEDS: ENOXAPARIN SOD 40 MG/0.4 ML SYRINGE SC SCH (10:25)
[2023-11-02] MEDS: CARVEDILOL 3.125 MG TAB PO SCH ×2 (10:26→22:38)
[2023-11-02] MEDS: NICOTINE 21MG/24 HR TOPICAL PATCH TD SCH (10:26)
[2023-11-02] MEDS: FINASTERIDE 5 MG TAB PO SCH (10:27)
[2023-11-02] MEDS: DULoxetine HCL 30 MG CAP PO SCH (10:27)
[2023-11-02] MEDS: LOSARTAN POTASSIUM 25 MG TAB PO SCH (10:27)
[2023-11-02 11:16] LABS: Base Excess 2.3 mmol/L (-2.0-2.0)
[2023-11-02] MEDS: ERGOCALCIFEROL 50,000 UNIT(1.25MG) CAP PO SCH (17:22)
[2023-11-02] MEDS: TAMSULOSIN HYDROCHLORIDE 0.4 MG CAP PO SCH (17:22)
[2023-11-02] MEDS: ATORVASTATIN 20 MG TAB PO SCH (22:37)
[2023-11-03] VITALS (13 sets, daily range): BP systolic 90–113; BP diastolic 44–74; PULSE 61–97; RESP 18–20; TEMP 36.4; O2SAT 90–100
[2023-11-03] MEDS: ACCU-CHEK COMFORT CURVE STRIP VI SCH ×3 (00:15→12:00)
[2023-11-03] MEDS: HYDROcodone-ACET 5/325MG TAB PO PRN ×2 (00:52→06:13)
[2023-11-03] MEDS: guaiFENesin-DM 100/10mg/5ml SYR PO PRN ×2 (00:53→06:13)
[2023-11-03 06:04] LABS: Eosinophils # (auto) 0.1 10 ^3/uL (0-0.8); Hemoglobin 18.2 g/dL (13.5-17.5); Lymphocytes # (auto) 1.7 10 ^3/uL (0.4-5.4); Monocytes # (auto) 0.7 10 ^3/uL (0-1.3); White Blood Cell 8.1 10^3/uL (4.4-10.8)
[2023-11-03 06:09] LABS: Basophils # (auto) 0 10 ^3/uL (0-0.2); Basophils % (auto) 0.5 % (0.0-2.0); Eosinophils % (auto) 1.1 % (0.0-7.0); Hematocrit 54.9 % (41.0-53.0); Lymphocytes % (auto) 21.2 % (10.0-50.0); Mean Corpuscular Hemoglobin 33.4 pg (28.0-32.0); Mean Corpuscular Hgb Conc. 33.1 g/dL (32.0-36.0); Monocytes % (auto) 8.5 % (0.0-12.0); Neutrophils # (auto) 5.6 10 ^3/uL (1.6-8.6); Neutrophils % (auto) 68.7 % (37.0-80.0); Nucleated Red Blood Cells % 0.5 %; Red Blood Cells 5.43 10^6/uL (4.5-5.90); Red Cell Distribution Width 15.5 % (11.8-14.3)
[2023-11-03] MEDS: EMPAGLIFLOZIN 10 MG TAB PO SCH (06:13)
[2023-11-03] MEDS: InsuLIN REG 1unit/0.01ml Soln (100units/ml) SC SCH ×3 (06:16→12:00)
[2023-11-03 06:32] LABS: Alanine Aminotransferase 46 U/L (7-40); Albumin 4.6 g/dL (3.2-4.8); Alkaline Phosphatase 118 U/L (46-116); Anion Gap 6 (5-15); Aspartate Aminotransferase 41 U/L (13-40); BUN/Creatinine Ratio 12.1 (10.0-20.0); Blood Urea Nitrogen 17 mg/dL (9-23); Calcium 10.6 mg/dL (8.5-10.1); Carbon Dioxide 30 mmol/L (20-30); Chloride 98 mmol/L (98-107); Glucose 113 mg/dL (74-106); Potassium 3.7 mmol/L (3.5-5.1); Sodium 134 mmol/L (136-145)
[2023-11-03 06:33] LABS: Bilirubin, Total 0.7 mg/dL (0.2-1.0); Total Protein 7.1 g/dL (5.7-8.2)
[2023-11-03] MEDS ORDERED: FUROSEMIDE 40 MG/4 ML VIAL IV SCH (07:00)
[2023-11-03] MEDS: BUDESONIDE (INHALATION) 0.5 MG/2 ML NEB NEB SCH (07:07)
[2023-11-03] MEDS: IPRATROPIUM BROM 0.5 MG/2.5ML INH SOL NEB SCH ×3 (07:07→14:11)
[2023-11-03] MEDS: acetaZOLAMIDE SODIUM 500 MG VL IV SCH (10:00)
[2023-11-03] MEDS: LOSARTAN POTASSIUM 25 MG TAB PO SCH (10:48)
[2023-11-03] MEDS: ALLOPURINOL 100 MG TAB PO SCH (10:48)
[2023-11-03] MEDS: FINASTERIDE 5 MG TAB PO SCH (10:48)
[2023-11-03] MEDS: ASPirin 81 mg TAB PO SCH (10:48)
[2023-11-03] MEDS: DULoxetine HCL 30 MG CAP PO SCH (10:48)
[2023-11-03] MEDS: CARVEDILOL 3.125 MG TAB PO SCH (10:49)
[2023-11-03] MEDS: NICOTINE 21MG/24 HR TOPICAL PATCH TD SCH (10:49)
[2023-11-03] MEDS: ENOXAPARIN SOD 40 MG/0.4 ML SYRINGE SC SCH (10:49)
[2023-11-03] MEDS ORDERED: TAMS-35 PO (11:46)
[2023-11-03] MEDS ORDERED: FURO1TAB31 PO (11:46)
[2023-11-03] MEDS ORDERED: FIN5T PO (11:46)
[2023-11-03] MEDS ORDERED: POTA-228 PO (11:46)
== END 2023-11-03 14:20 | disposition home health service (06) | DRG 133 ==
LOC: ER 23:12 → TELE 10-26 09:52 → TELE-EAST 10-26 21:06 → EAST 11-03 01:36
PROVIDERS: ADMIT Internal Medicine; ATTEND Internal Medicine
PROC: 5A09357 Assistance with Respiratory Ventilation, Less than 24 Consecutive Hours, Continuous Positive Airway Pressure (ICD-10-PCS; principal; 2023-10-27)
PROC: 5A09357 Assistance with Respiratory Ventilation, Less than 24 Consecutive Hours, Continuous Positive Airway Pressure (ICD-10-PCS; 2023-10-28)
PROC: 5A09357 Assistance with Respiratory Ventilation, Less than 24 Consecutive Hours, Continuous Positive Airway Pressure (ICD-10-PCS; 2023-10-29)
PROC: 5A09357 Assistance with Respiratory Ventilation, Less than 24 Consecutive Hours, Continuous Positive Airway Pressure (ICD-10-PCS; 2023-10-30)
PROC: 5A09357 Assistance with Respiratory Ventilation, Less than 24 Consecutive Hours, Continuous Positive Airway Pressure (ICD-10-PCS; 2023-10-31)
PROC: 5A09357 Assistance with Respiratory Ventilation, Less than 24 Consecutive Hours, Continuous Positive Airway Pressure (ICD-10-PCS; 2023-11-01)
PROC: 5A09357 Assistance with Respiratory Ventilation, Less than 24 Consecutive Hours, Continuous Positive Airway Pressure (ICD-10-PCS; 2023-11-03)
DX: J96.21 Acute and chronic respiratory failure with hypoxia (principal); N17.0 Acute kidney failure with tubular necrosis; I21.A1 Myocardial infarction type 2; I50.33 Acute on chronic diastolic (congestive) heart failure; J44.1 Chronic obstructive pulmonary disease with (acute) exacerbation; I16.0 Hypertensive urgency; E66.01 Morbid (severe) obesity due to excess calories; E11.9 Type 2 diabetes mellitus without complications; E78.5 Hyperlipidemia, unspecified; G47.33 Obstructive sleep apnea (adult) (pediatric); F17.210 Nicotine dependence, cigarettes, uncomplicated; M10.9 Gout, unspecified; I11.0 Hypertensive heart disease with heart failure; N40.0 Benign prostatic hyperplasia without lower urinary tract symptoms; Z79.84 Long term (current) use of oral hypoglycemic drugs; Z79.899 Other long term (current) drug therapy; Z68.41 Body mass index [BMI] 40.0-44.9, adult
CPT/HCPCS: 36415; 36600; 71045; 71275; 76856; 80048; 80053; 80061; 80307; 81001; 82306; 82607; 82805; 82962; 83036; 83735; 83880; 84443; 84484; 85025; 85379; 85610; 85730; 86803; 87340; 93005; 93306; 94640; 94660; 97110; 97116; 97163; 99291; G0378; J1815; J2001

== ENCOUNTER 2024-01-07 19:15 | Inpatient (IN) | payer MEDICAID ==
[~2024-01-07] VITALS: Ht 172.7 cm; Wt 123.0 kg
[~2024-01-07 19:15] MED LIST changes: +FIN5T PO; +FURO1TAB31 PO; +POTA-228 PO; +TAMS-35 PO
[2024-01-07] MEDS ORDERED: SODIUM CHLORIDE 0.9% 2,000 ML IV ONE (19:30)
[2024-01-07 20:00] VITALS: PULSE 102; RESP 18; O2SAT 90
[2024-01-07] MEDS: NOREPINEPHRINE 8 MG/250ML KIT 250 ML IV ONE (20:03)
[2024-01-07] MEDS: NOREPINEPHRINE 8 MG/250ML KIT 250 ML IV SCH (20:04)
[2024-01-07 20:14] LABS: Basophils # (auto) 0.1 10 ^3/uL (0-0.2); Basophils % (auto) 0.6 % (0.0-2.0); Eosinophils # (auto) 0 10 ^3/uL (0-0.8); Eosinophils % (auto) 0.5 % (0.0-7.0); Hemoglobin 17.8 g/dL (13.5-17.5); Lymphocytes # (auto) 2.5 10 ^3/uL (0.4-5.4); Lymphocytes % (auto) 24.9 % (10.0-50.0); Mean Corpuscular Hemoglobin 33.3 pg (28.0-32.0); Mean Corpuscular Hgb Conc. 33.6 g/dL (32.0-36.0); Mean Corpuscular Volume 99.2 fL (80.0-100.0); Monocytes # (auto) 0.6 10 ^3/uL (0-1.3); Monocytes % (auto) 6.6 % (0.0-12.0); Neutrophils # (auto) 6.6 10 ^3/uL (1.6-8.6); Neutrophils % (auto) 67.4 % (37.0-80.0); Nucleated Red Blood Cells % 0.1 %; Red Blood Cells 5.34 10^6/uL (4.5-5.90); Red Cell Distribution Width 15.2 % (11.8-14.3); White Blood Cell 9.8 10^3/uL (4.4-10.8)
[2024-01-07 20:27] LABS: Alanine Aminotransferase 16 U/L (7-40); Albumin 3.9 g/dL (3.2-4.8); Alkaline Phosphatase 99 U/L (46-116); Anion Gap 9 (5-15); Aspartate Aminotransferase 24 U/L (13-40); BUN/Creatinine Ratio 6.2 (10.0-20.0); Bilirubin, Total 1.1 mg/dL (0.2-1.0); Blood Urea Nitrogen 13 mg/dL (9-23); Calcium 9.3 mg/dL (8.7-10.4); Carbon Dioxide 26 mmol/L (20-30); Chloride 104 mmol/L (98-107); Glucose 110 mg/dL (74-106); INR 1.04 (0.9-1.15); Partial Thromboplastin Time 28.6 SEC (24.5-34.5); Potassium 3.6 mmol/L (3.5-5.1); Prothrombin Time 10.9 sec (9.3-11.8); Sodium 139 mmol/L (136-145); Total Protein 6.5 g/dL (5.7-8.2)
[2024-01-07 20:29] LABS: Lactic Acid w/Reflex 3.4 mmol/L (0.4-2.0)
[2024-01-07] MEDS ORDERED: DOCUSATE SOD 100 MG CAP PO PRN (21:30)
[2024-01-07] MEDS ORDERED: ACETAMINOPHEN 325 MG TAB PO PRN (21:30)
[2024-01-07] MEDS ORDERED: DEXTROSE (50%) 50ML SYRG IV PRN (21:30)
[2024-01-07] MEDS: cefTRIAXone 1GM/50ML D5W 50 ML IV ONE (22:15)
[2024-01-07] MEDS ORDERED: NITROGLYCERIN 0.4 MG SL TAB SL PRN (22:15)
[2024-01-07] MEDS ORDERED: MORPHINE SULFATE INJ 2 MG/ml SYRG IV PRN (22:15)
[2024-01-07] MEDS: AZITHROMYCIN 500MG/ 250ML 250 ML IV ONE (22:30)
[2024-01-07] MEDS: ACCU-CHEK COMFORT CURVE STRIP VI SCH (23:08)
[2024-01-07] MEDS: InsuLIN REG 1unit/0.01ml Soln (100units/ml) SC SCH (23:17)
[2024-01-08 04:04] LABS: COVID19 ANTIGEN SOFIA FIA NEGATIVE (NEGATIVE); Rapid Influenza A Negative (Negative); Rapid Influenza B Negative (Negative)
[2024-01-08 04:54] LABS: Urine Bacteria NONE SEEN /hpf (None Seen); Urine Blood Negative /uL (Negative); Urine Clarity Clear (Clear); Urine Color Yellow (Yellow); Urine Hyaline Cast MOD /lpf (0 - 2); Urine Mucus FEW (None Seen); Urine Protein, UAD 2+ (Negative); Urine Specific Gravity 1.028 (1.001-1.035); Urine WBC 6 /hpf (0 - 3)
[2024-01-08] MEDS: HYDROcodone-ACET 5/325MG TAB PO PRN (05:27)
[2024-01-08] MEDS: InsuLIN REG 1unit/0.01ml Soln (100units/ml) SC SCH (06:58)
[2024-01-08 07:30] VITALS: PULSE 79; RESP 18; O2SAT 93
[2024-01-08 07:33] LABS: Basophils # (auto) 0 10 ^3/uL (0-0.2); Basophils % (auto) 0.3 % (0.0-2.0); Eosinophils # (auto) 0.1 10 ^3/uL (0-0.8); Eosinophils % (auto) 0.7 % (0.0-7.0); Hematocrit 48.8 % (41.0-53.0); Hemoglobin 16.8 g/dL (13.5-17.5); Lymphocytes # (auto) 2.3 10 ^3/uL (0.4-5.4); Lymphocytes % (auto) 22.8 % (10.0-50.0); Mean Corpuscular Hemoglobin 33.4 pg (28.0-32.0); Mean Corpuscular Hgb Conc. 34.4 g/dL (32.0-36.0); Monocytes # (auto) 0.8 10 ^3/uL (0-1.3); Monocytes % (auto) 8.1 % (0.0-12.0); Neutrophils # (auto) 6.8 10 ^3/uL (1.6-8.6); Neutrophils % (auto) 68.1 % (37.0-80.0); Nucleated Red Blood Cells % 0.1 %; Red Blood Cells 5.04 10^6/uL (4.5-5.90); Red Cell Distribution Width 15.2 % (11.8-14.3)
[2024-01-08 07:50] LABS: Alanine Aminotransferase 18 U/L (7-40); Alkaline Phosphatase 103 U/L (46-116); Anion Gap 8 (5-15); Blood Urea Nitrogen 18 mg/dL (9-23); Calcium 9.4 mg/dL (8.5-10.1); Carbon Dioxide 29 mmol/L (20-30); Chloride 102 mmol/L (98-107); Glucose 74 mg/dL (74-106); Potassium 3.6 mmol/L (3.5-5.1); Sodium 139 mmol/L (136-145)
[2024-01-08 07:51] LABS: Albumin 3.8 g/dL (3.2-4.8); Aspartate Aminotransferase 40 U/L (13-40); Bilirubin, Total 1.5 mg/dL (0.2-1.0); Total Protein 6.4 g/dL (5.7-8.2)
[2024-01-08] MEDS: cefTRIAXone 1GM/50ML D5W 50 ML IV SCH (09:37)
[2024-01-08 11:33] LABS: Uric Acid 8.3 mg/dL (3.7-9.2)
[2024-01-08 11:35] LABS: Magnesium 1.6 mg/dL (1.6-2.6)
[2024-01-08 11:36] LABS: Phosphorus 3.9 mg/dL (2.4-5.1)
[2024-01-08 20:00] VITALS: PULSE 88
[2024-01-08] MEDS ORDERED: LISI20TA56 PO (20:10)
[2024-01-08] MEDS ORDERED: ATOR10TA PO (20:10)
[2024-01-08] MEDS ORDERED: GLIP1TAB8 PO (20:10)
[2024-01-08] MEDS ORDERED: ALL100T PO (20:10)
[2024-01-08] MEDS ORDERED: ACET325T82 PO (20:10)
[2024-01-08] MEDS ORDERED: ASPI1TAB20 PO (20:10)
[2024-01-08] MEDS ORDERED: CHOL20007 PO (20:10)
[2024-01-08] MEDS ORDERED: CARV6.2551 PO (20:10)
[2024-01-08] MEDS ORDERED: DULO1CAP5 PO (20:10)
[2024-01-08] MEDS: AZITHROMYCIN 500MG/ 250ML 250 ML IV SCH (21:04)
[2024-01-08 22:00] VITALS: BP_SYST 143; BP_SYST 147; BP_DIAS 99; PULSE 102; RESP 22; TEMP 97.9; O2SAT 97
[2024-01-08 23:00] LABS: Protein, Urine 115.8 mg/dL (0.0-11.9)
[2024-01-08 23:11] LABS: Creatinine, Urine 369.55 mg/dL (30.0-125.0); Urine Protein/Creatinine Ratio 0.31
[2024-01-09] VITALS (7 sets, daily range): BP systolic 136–161; BP diastolic 95–105; PULSE 74–93; RESP 18–22; TEMP 97.6–98; O2SAT 91–96
[2024-01-09] MEDS: ATORVASTATIN 20 MG TAB PO SCH (09:50)
[2024-01-09] MEDS: CHOLECALCIFEROL (VITD3) 1,000UNIT=25mCg TAB PO SCH (09:50)
[2024-01-09] MEDS: ASPirin-EC 81 mg tab PO SCH (09:50)
[2024-01-09] MEDS: LISINOPRIL 20 MG TAB PO SCH (09:51)
[2024-01-09] MEDS: POTASSIUM CHL 10 Meq TABLET PO SCH (09:51)
[2024-01-09] MEDS: DULoxetine HCL 30 MG CAP PO SCH (09:51)
[2024-01-09] MEDS: FINASTERIDE 5 MG TAB PO SCH (09:52)
[2024-01-09] MEDS: FUROSEMIDE 20 MG TAB PO SCH (09:56)
[2024-01-09 13:42] LABS: Triglycerides 199 mg/dL (< 150)
[2024-01-09 13:43] LABS: LDL Cholesterol 42 mg/dL (< 100)
[2024-01-09 13:44] LABS: Cholesterol 120 mg/dL (< 200); HDL Cholesterol 48 mg/dL (40-59)
[2024-01-09] MEDS: hydrALAZINE HCL 20 MG/ML VL IV PRN (16:38)
[2024-01-09] MEDS: TAMSULOSIN HYDROCHLORIDE 0.4 MG CAP PO SCH (18:33)
[2024-01-10] VITALS (7 sets, daily range): BP systolic 108–132; BP diastolic 67–92; PULSE 74–91; RESP 16–20; TEMP 97.7–98.3; O2SAT 91–98
[2024-01-10] MEDS: ONDANSETRON HCL 4 MG/2 ML VIAL IV PRN (11:42)
[2024-01-10] MEDS ORDERED: ALBU108A5 INH (12:11)
[2024-01-10] MEDS ORDERED: VARE1TAB11 PO (12:11)
[2024-01-10] MEDS ORDERED: FLUT1INH27 INH (12:11)
[2024-01-10 12:39] LABS: Anion Gap 3 (5-15); Carbon Dioxide 35 mmol/L (20-30); Chloride 97 mmol/L (98-107); Potassium 4.6 mmol/L (3.5-5.1); Sodium 135 mmol/L (136-145)
[2024-01-10 12:41] LABS: Calcium 9.9 mg/dL (8.5-10.1)
[2024-01-10 12:45] LABS: BUN/Creatinine Ratio 13.5 (10.0-20.0); Blood Urea Nitrogen 14 mg/dL (9-23); Glucose 87 mg/dL (74-106)
[2024-01-11 05:02] VITALS: BP 93/63; PULSE 81; RESP 20; TEMP 97.8; O2SAT 97
[2024-01-11 07:28] LABS: Anion Gap 3 (5-15); Calcium 9.6 mg/dL (8.5-10.1); Carbon Dioxide 33 mmol/L (20-30); Chloride 99 mmol/L (98-107); Potassium 4.8 mmol/L (3.5-5.1); Sodium 135 mmol/L (136-145)
[2024-01-11 07:34] LABS: BUN/Creatinine Ratio 12.1 (10.0-20.0); Blood Urea Nitrogen 17 mg/dL (9-23); Glucose 84 mg/dL (74-106)
[2024-01-11 07:40] VITALS: RESP 20
[2024-01-11 08:00] VITALS: PULSE 84; PULSE 85
[2024-01-11 09:19] VITALS: BP 141/84; PULSE 76; RESP 20; TEMP 97.7; O2SAT 96
[2024-01-11] MEDS ORDERED: LEVO500T91 PO (12:08)
[2024-01-11 13:00] VITALS: BP 114/81; PULSE 85; RESP 16; TEMP 97.5; O2SAT 91
[2024-01-11 13:41] VITALS: BP 141/84; TEMP 36.5
[2024-01-12] MEDS ORDERED: amLODIPine BESYLATE 5 MG TAB PO SCH (10:00)
[2024-01-12] MEDS ORDERED: AZITHROMYCIN 250 MG TAB PO SCH (10:00)
== END 2024-01-11 16:35 | disposition home or self-care (01) | DRG 720 ==
LOC: ER 19:15 → EDBD 19:15 → TELE-WESTW 22:09 → TELE 22:09 → TELE-WESTW 01-08 17:53
PROVIDERS: ADMIT Nurse Practitioner Family; ATTEND Internal Medicine
DX: A41.9 Sepsis, unspecified organism (principal); J96.20 Acute and chronic respiratory failure, unspecified whether with hypoxia or hypercapnia; R65.21 Severe sepsis with septic shock; I50.33 Acute on chronic diastolic (congestive) heart failure; N17.9 Acute kidney failure, unspecified; N39.0 Urinary tract infection, site not specified; I13.0 Hypertensive heart and chronic kidney disease with heart failure and stage 1 through stage 4 chronic kidney disease, or unspecified chronic kidney disease; J44.1 Chronic obstructive pulmonary disease with (acute) exacerbation; F17.210 Nicotine dependence, cigarettes, uncomplicated; E78.00 Pure hypercholesterolemia, unspecified; E66.01 Morbid (severe) obesity due to excess calories; E11.22 Type 2 diabetes mellitus with diabetic chronic kidney disease; E86.0 Dehydration; M10.9 Gout, unspecified; N18.9 Chronic kidney disease, unspecified; Z20.822 Contact with and (suspected) exposure to COVID-19; G47.33 Obstructive sleep apnea (adult) (pediatric); Z68.41 Body mass index [BMI] 40.0-44.9, adult; Z71.6 Tobacco abuse counseling
CPT/HCPCS: 36415; 71045; 73020; 76775; 80048; 80053; 80061; 81001; 82306; 82570; 82962; 83036; 83605; 83735; 83880; 83970; 84100; 84156; 84300; 84443; 84484; 84550; 85025; 85610; 85730; 87040; 87077; 87186; 87426; 87804; 93005; 96365; 99291; G0378; J1815; J2405

== ENCOUNTER 2024-04-20 13:29 | Inpatient (IN) | payer MEDICAID ==
[~2024-04-20] VITALS: Ht 177.8 cm; Wt 125.7 kg
[~2024-04-20 13:29] MED LIST changes: +ACET325T82 PO; +ALBU108A5 INH; +ALL100T PO; +ASPI1TAB20 PO; +ATOR10TA PO; +CARV6.2551 PO; +CHOL20007 PO; -CYCL-839 PO; +DULO1CAP5 PO; +FLUT1INH27 INH; +GLIP1TAB8 PO; -HYDR-4902 PO; +LEVO500T91 PO; +LISI20TA56 PO; +VARE1TAB11 PO
[2024-04-20] MEDS: IPRATROPIUM BROM 0.5 MG/2.5ML INH SOL NEB ONE (14:11)
[2024-04-20] MEDS: ALBUTEROL SULF 2.5 MG/0.5ML(0.5%) NEB SOLN NEB ONE (14:11)
[2024-04-20] MEDS: methylPREDNISolone SOD SUCC 125 MG/2 ML VL IV ONE (14:13)
[2024-04-20 14:18] VITALS: PULSE 62; RESP 22; O2SAT 97
[2024-04-20 14:44] LABS: Chloride 110 mmol/L (98-107); Potassium 4.2 mmol/L (3.5-5.1); Sodium 142 mmol/L (136-145)
[2024-04-20 14:45] LABS: Anion Gap 4 (5-15); Calcium 9.2 mg/dL (8.5-10.1); Carbon Dioxide 28 mmol/L (20-30)
[2024-04-20 14:50] LABS: BUN/Creatinine Ratio 19.4 (10.0-20.0); Blood Urea Nitrogen 24 mg/dL (9-23); Glucose 58 mg/dL (74-106)
[2024-04-20 15:12] LABS: Basophils # (auto) 0 10 ^3/uL (0-0.2); Basophils % (auto) 0.5 % (0.0-2.0); Eosinophils # (auto) 0.1 10 ^3/uL (0-0.8); Eosinophils % (auto) 0.7 % (0.0-7.0); Hematocrit 45.2 % (41.0-53.0); Lymphocytes # (auto) 2.7 10 ^3/uL (0.4-5.4); Lymphocytes % (auto) 30.5 % (10.0-50.0); Mean Corpuscular Hemoglobin 31.9 pg (28.0-32.0); Mean Corpuscular Hgb Conc. 33.2 g/dL (32.0-36.0); Mean Corpuscular Volume 95.9 fL (80.0-100.0); Monocytes # (auto) 0.7 10 ^3/uL (0-1.3); Monocytes % (auto) 7.6 % (0.0-12.0); Neutrophils # (auto) 5.3 10 ^3/uL (1.6-8.6); Neutrophils % (auto) 60.7 % (37.0-80.0); Red Blood Cells 4.71 10^6/uL (4.5-5.90); Red Cell Distribution Width 15.1 % (11.8-14.3); White Blood Cell 8.7 10^3/uL (4.4-10.8)
[2024-04-20] MEDS: FUROSEMIDE 40 MG/4 ML VIAL IV ONE (15:37)
[2024-04-20] MEDS ORDERED: DEXTROSE (50%) 50ML SYRG IV PRN (17:15)
[2024-04-20] MEDS: SODIUM CHLORIDE 0.9% 1,000 ML IV SCH (17:38)
[2024-04-20 17:52] LABS: Urine Bacteria None Seen /hpf (None Seen)
[2024-04-20 18:26] LABS: Urine Blood Negative /uL (Negative); Urine Clarity Clear (Clear); Urine Color Colorless (Yellow); Urine Hyaline Cast FEW /lpf (0 - 2); Urine Protein, UAD Negative (Negative); Urine Specific Gravity 1.008 (1.001-1.035); Urine Urobilinogen Normal (Negative); Urine WBC <1 /hpf (0 - 3)
[2024-04-20 18:48] VITALS: PULSE 83; RESP 20; O2SAT 95
[2024-04-20] MEDS: ALBUTEROL SULF 2.5 MG/0.5ML(0.5%) NEB SOLN ONE (18:48)
[2024-04-20] MEDS: IPRATROPIUM BROM 0.5 MG/2.5ML INH SOL ONE (18:48)
[2024-04-20 18:53] VITALS: PULSE 89; RESP 20; O2SAT 98
[2024-04-20 19:08] VITALS: BP 155/98; PULSE 83; RESP 20; TEMP 99.2; O2SAT 95
[2024-04-20 19:24] LABS: INR 1.07 (0.9-1.15); Prothrombin Time 11.3 sec (9.3-11.8)
[2024-04-20] MEDS: TAMSULOSIN HYDROCHLORIDE 0.4 MG CAP PO SCH (20:12)
[2024-04-20] MEDS: IPRATROPIUM BROM 0.5 MG/2.5ML INH SOL NEB SCH (20:26)
[2024-04-20] MEDS: ALBUTEROL SULF 2.5 MG/0.5ML(0.5%) NEB SOLN NEB SCH (20:26)
[2024-04-20 22:17] VITALS: PULSE 89; RESP 20; O2SAT 96
[2024-04-20 22:23] VITALS: PULSE 88; RESP 20; O2SAT 98
[2024-04-21] VITALS (19 sets, daily range): BP systolic 153–182; BP diastolic 73–109; PULSE 62–87; RESP 18–20; TEMP 97.3–98.7; O2SAT 94–100
[2024-04-21] MEDS: ACCU-CHEK COMFORT CURVE STRIP VI SCH (00:04)
[2024-04-21] MEDS: ENOXAPARIN SOD 100 MG/1 ML SYRINGE SC SCH (00:05)
[2024-04-21] MEDS: ATORVASTATIN 20 MG TAB PO SCH (00:05)
[2024-04-21] MEDS: CARVEDILOL 3.125 MG TAB PO SCH (00:05)
[2024-04-21] MEDS: InsuLIN REG 1unit/0.01ml Soln (100units/ml) SC SCH (00:07)
[2024-04-21] MEDS: methylPREDNISolone SOD SUCC 125 MG/2 ML VL IV SCH (00:37)
[2024-04-21] MEDS: hydrALAZINE HCL 20 MG/ML VL IV PRN (02:30)
[2024-04-21] MEDS: MORPHINE SULFATE INJ 2 MG/ml SYRG IV PRN (05:57)
[2024-04-21 06:04] LABS: Basophils # (auto) 0 10 ^3/uL (0-0.2); Eosinophils # (auto) 0 10 ^3/uL (0-0.8); Hematocrit 49.1 % (41.0-53.0); Hemoglobin 16.8 g/dL (13.5-17.5); Lymphocytes # (auto) 0.4 10 ^3/uL (0.4-5.4); Lymphocytes % (auto) 5.9 % (10.0-50.0); Mean Corpuscular Hemoglobin 32.7 pg (28.0-32.0); Mean Corpuscular Hgb Conc. 34.1 g/dL (32.0-36.0); Mean Corpuscular Volume 95.8 fL (80.0-100.0); Monocytes # (auto) 0 10 ^3/uL (0-1.3); Monocytes % (auto) 0.5 % (0.0-12.0); Neutrophils # (auto) 6.7 10 ^3/uL (1.6-8.6); Neutrophils % (auto) 93.6 % (37.0-80.0); Red Blood Cells 5.13 10^6/uL (4.5-5.90); White Blood Cell 7.1 10^3/uL (4.4-10.8)
[2024-04-21 06:31] LABS: Alanine Aminotransferase 27 U/L (7-40); Alkaline Phosphatase 95 U/L (46-116); Anion Gap 8 (5-15); BUN/Creatinine Ratio 18.9 (10.0-20.0); Blood Urea Nitrogen 25 mg/dL (9-23); Carbon Dioxide 26 mmol/L (20-30); Chloride 103 mmol/L (98-107); Potassium 4.2 mmol/L (3.5-5.1); Sodium 137 mmol/L (136-145)
[2024-04-21 06:32] LABS: Aspartate Aminotransferase 18 U/L (13-40)
[2024-04-21 06:33] LABS: Bilirubin, Total 0.7 mg/dL (0.2-1.0); Total Protein 7.3 g/dL (5.7-8.2)
[2024-04-21 06:36] LABS: Albumin 4.6 g/dL (3.2-4.8)
[2024-04-21 06:41] LABS: Glucose 221 mg/dL (74-106)
[2024-04-21] MEDS: ASPirin-EC 81 mg tab PO SCH (09:35)
[2024-04-21] MEDS: LISINOPRIL 20 MG TAB PO SCH (09:35)
[2024-04-21] MEDS: FINASTERIDE 5 MG TAB PO SCH (09:35)
[2024-04-21] MEDS: DULoxetine HCL 30 MG CAP PO SCH (09:35)
[2024-04-21] MEDS: ALLOPURINOL 100 MG TAB PO SCH (09:41)
[2024-04-22] VITALS (20 sets, daily range): BP systolic 116–171; BP diastolic 55–108; PULSE 57–83; RESP 17–22; TEMP 97.7–98; O2SAT 94–100
[2024-04-22] MEDS: ONDANSETRON HCL 4 MG/2 ML VIAL IV PRN (09:48)
[2024-04-22] MEDS: METOPROLOL SUCCINATE XL 50 MG TAB PO ONE (16:24)
[2024-04-22] MEDS: HYDROcodone-ACET 5/325MG TAB PO PRN (16:25)
[2024-04-22] MEDS: FUROSEMIDE 40 MG TAB PO SCH (18:19)
[2024-04-23] VITALS (21 sets, daily range): BP systolic 128–169; BP diastolic 78–106; PULSE 56–83; RESP 17–20; TEMP 97.6–98; O2SAT 92–99
[2024-04-23] MEDS: METOPROLOL SUCCINATE XL 50 MG TAB PO SCH (09:24)
[2024-04-23] MEDS: DOCUSATE SOD 100 MG CAP PO PRN (14:32)
[2024-04-24] VITALS (21 sets, daily range): BP systolic 139–160; BP diastolic 72–97; PULSE 63–88; RESP 14–22; TEMP 97.6–98.4; O2SAT 91–100
[2024-04-24 09:10] LABS: Hepatitis B Surface Antigen Negative (Negative)
[2024-04-24 09:36] LABS: Hepatitis C Antibody Negative (Negative)
[2024-04-24] MEDS ORDERED: METO-6 PO (12:03)
[2024-04-24] MEDS ORDERED: METO5TAB5 PO (12:03)
[2024-04-24 12:51] LABS: Urine Bacteria None Seen /hpf (None Seen)
[2024-04-24] MEDS: LACTULOSE 20Gm/30ML SOLN PO PRN (12:53)
[2024-04-24 13:08] LABS: Urine Blood Negative /uL (Negative); Urine Clarity Clear (Clear); Urine Color Light-Yellow (Yellow); Urine Protein, UAD Negative (Negative); Urine Urobilinogen Normal (Negative); Urine WBC <1 /hpf (0 - 3); Urine pH 6.5 (5.0-9.0)
[2024-04-25] VITALS (16 sets, daily range): BP systolic 141–164; BP diastolic 83–108; PULSE 70–88; RESP 14–20; TEMP 36.7; O2SAT 92–100
[2024-04-25] MEDS ORDERED: FLUT1AER3 IN (10:26)
[2024-04-25] MEDS ORDERED: LACT10SO3 PO (10:26)
[2024-04-25] MEDS: amLODIPine BESYLATE 5 MG TAB PO SCH (11:04)
== END 2024-04-25 14:44 | disposition home health service (06) | DRG 140 ==
LOC: EDBD 13:29 → ER 13:31 → UNDOADMIN 18:07 → OVERFLOW 18:07 → WEST WING 23:54 → OVERFLOW 23:54 → TELE-WESTW 04-21 00:24 → WEST WING 04-21 00:24 → OVERFLOW 04-21 01:01 → WEST WING 04-21 03:11 → TELE-WESTW 04-22 08:13
PROVIDERS: ADMIT Internal Medicine; ATTEND Internal Medicine
DX: J44.1 Chronic obstructive pulmonary disease with (acute) exacerbation (principal); J96.01 Acute respiratory failure with hypoxia; E11.649 Type 2 diabetes mellitus with hypoglycemia without coma; I11.0 Hypertensive heart disease with heart failure; J98.11 Atelectasis; E78.5 Hyperlipidemia, unspecified; F17.210 Nicotine dependence, cigarettes, uncomplicated; I50.42 Chronic combined systolic (congestive) and diastolic (congestive) heart failure
CPT/HCPCS: 36415; 71045; 80048; 80053; 81001; 82962; 83880; 84484; 85025; 85379; 85610; 86803; 87340; 93005; 94640; 96361; 96372; 96374; 96375; 96376; 99291; G0378; J1815; J2405

== ENCOUNTER 2024-06-13 19:45 | Inpatient (IN) | payer MEDICAID ==
[~2024-06-13] VITALS: Ht 172.7 cm; Wt 119.3 kg
[~2024-06-13 19:45] MED LIST changes: +FLUT1AER3 IN; +METO-6 PO; +METO5TAB5 PO
[2024-06-13 20:14] LABS: Basophils # (auto) 0.1 10 ^3/uL (0-0.2); Basophils % (auto) 0.6 % (0.0-2.0); Eosinophils # (auto) 0 10 ^3/uL (0-0.8); Eosinophils % (auto) 0.3 % (0.0-7.0); Hematocrit 50.7 % (41.0-53.0); Hemoglobin 17.2 g/dL (13.5-17.5); Lymphocytes # (auto) 3.3 10 ^3/uL (0.4-5.4); Lymphocytes % (auto) 28.9 % (10.0-50.0); Mean Corpuscular Hemoglobin 31.5 pg (28.0-32.0); Mean Corpuscular Volume 92.7 fL (80.0-100.0); Monocytes # (auto) 0.8 10 ^3/uL (0-1.3); Monocytes % (auto) 6.8 % (0.0-12.0); Neutrophils # (auto) 7.2 10 ^3/uL (1.6-8.6); Neutrophils % (auto) 63.4 % (37.0-80.0); Red Blood Cells 5.47 10^6/uL (4.5-5.90); White Blood Cell 11.3 10^3/uL (4.4-10.8)
[2024-06-13] MEDS: methylPREDNISolone SOD SUCC 125 MG/2 ML VL IV ONE (20:15)
[2024-06-13] MEDS: FUROSEMIDE 40 MG/4 ML VIAL IV ONE (20:15)
[2024-06-13 20:30] LABS: Alanine Aminotransferase 33 U/L (7-40); Albumin 4.2 g/dL (3.2-4.8); Alkaline Phosphatase 93 U/L (46-116); Anion Gap 10 (5-15); Aspartate Aminotransferase 39 U/L (13-40); BUN/Creatinine Ratio 16.9 (10.0-20.0); Blood Urea Nitrogen 21 mg/dL (9-23); Calcium 9.1 mg/dL (8.7-10.4); Carbon Dioxide 29 mmol/L (20-30); Chloride 99 mmol/L (98-107); Glucose 120 mg/dL (74-106); Potassium 3.8 mmol/L (3.5-5.1); Sodium 138 mmol/L (136-145); Total Protein 6.4 g/dL (5.7-8.2)
[2024-06-13] MEDS: ALBUTEROL SULF 2.5 MG/0.5ML(0.5%) NEB SOLN NEB ONE (20:33)
[2024-06-13 20:56] VITALS: PULSE 95; O2SAT 92
[2024-06-13] MEDS ORDERED: PHENYLEPHRINE IV 250 ML IV SCH (22:45)
[2024-06-13] MEDS: PHENYLEPHRINE IV 250 ML IV ONE (23:15)
[2024-06-14] MEDS ORDERED: MORPHINE SULFATE INJ 2 MG/ml SYRG IV PRN
[2024-06-14] MEDS ORDERED: NITROGLYCERIN 0.4 MG SL TAB SL PRN
[2024-06-14] MEDS ORDERED: ONDANSETRON HCL 4 MG/2 ML VIAL IV PRN
[2024-06-14] MEDS: IPRATROPIUM BROM 0.5 MG/2.5ML INH SOL NEB ONE (00:21)
[2024-06-14] MEDS: ALBUTEROL SULF 2.5 MG/0.5ML(0.5%) NEB SOLN ONE (00:21)
[2024-06-14 00:22] VITALS: PULSE 86; RESP 15; O2SAT 92
[2024-06-14] MEDS: IPRATROPIUM BROM 0.5 MG/2.5ML INH SOL ONE (00:26)
[2024-06-14 00:28] VITALS: PULSE 89; RESP 14; O2SAT 94
[2024-06-14 00:45] VITALS: BP 75/45; PULSE 89; RESP 14; TEMP 98.1; O2SAT 94
[2024-06-14 00:50] LABS: Lactic Acid w/Reflex 3.7 mmol/L (0.4-2.0)
[2024-06-14 02:49] LABS: Urine Bacteria None Seen /hpf (None Seen)
[2024-06-14 03:30] LABS: Urine Blood Negative /uL (Negative); Urine Clarity Clear (Clear); Urine Color Yellow (Yellow); Urine Mucus FEW (None Seen); Urine Protein, UAD TRACE (Negative); Urine Specific Gravity 1.017 (1.001-1.035); Urine Urobilinogen Normal (Negative); Urine WBC 1 /hpf (0 - 3)
[2024-06-14] MEDS: PHENYLEPHRINE IV 250 ML IV ONE (04:44)
[2024-06-14] MEDS ORDERED: PHENYLEPHRINE IV 250 ML IV SCH (04:45)
[2024-06-14 05:14] LABS: Basophils # (auto) 0 10 ^3/uL (0-0.2); Basophils % (auto) 0.1 % (0.0-2.0); Eosinophils # (auto) 0 10 ^3/uL (0-0.8); Hematocrit 47.2 % (41.0-53.0); Hemoglobin 16.4 g/dL (13.5-17.5); Lymphocytes # (auto) 0.7 10 ^3/uL (0.4-5.4); Lymphocytes % (auto) 8.3 % (10.0-50.0); Mean Corpuscular Hemoglobin 32.6 pg (28.0-32.0); Mean Corpuscular Hgb Conc. 34.8 g/dL (32.0-36.0); Mean Corpuscular Volume 93.9 fL (80.0-100.0); Monocytes # (auto) 0 10 ^3/uL (0-1.3); Monocytes % (auto) 0.4 % (0.0-12.0); Neutrophils # (auto) 7.5 10 ^3/uL (1.6-8.6); Neutrophils % (auto) 91.2 % (37.0-80.0); Red Blood Cells 5.02 10^6/uL (4.5-5.90); Red Cell Distribution Width 15.4 % (11.8-14.3); White Blood Cell 8.2 10^3/uL (4.4-10.8)
[2024-06-14] MEDS ORDERED: DEXTROSE (50%) 50ML SYRG IV PRN ×2 (05:15→07:15)
[2024-06-14] MEDS: SODIUM CHLORIDE 0.9% 1,000 ML IV ONE (05:30)
[2024-06-14 05:31] LABS: Alanine Aminotransferase 33 U/L (7-40); Albumin 4.1 g/dL (3.2-4.8); Alkaline Phosphatase 90 U/L (46-116); Anion Gap 17 (5-15); Aspartate Aminotransferase 32 U/L (13-40); BUN/Creatinine Ratio 11.7 (10.0-20.0); Bilirubin, Total 0.6 mg/dL (0.2-1.0); Blood Urea Nitrogen 20 mg/dL (9-23); Calcium 8.5 mg/dL (8.7-10.4); Chloride 99 mmol/L (98-107); Potassium 3.5 mmol/L (3.5-5.1); Sodium 135 mmol/L (136-145); Total Protein 6.4 g/dL (5.7-8.2)
[2024-06-14 05:32] LABS: Carbon Dioxide 19 mmol/L (20-30); Glucose 251 mg/dL (74-106)
[2024-06-14] MEDS ORDERED: ACCU-CHEK COMFORT CURVE STRIP VI SCH (06:00)
[2024-06-14] MEDS ORDERED: InsuLIN REG 1unit/0.01ml Soln (100units/ml) SC SCH (06:00)
[2024-06-14] MEDS: FUROSEMIDE 40 MG TAB PO SCH (06:28)
[2024-06-14] MEDS: PHENYLEPHRINE IV 250 ML IV SCH (07:15)
[2024-06-14] MEDS: cefTRIAXone 1GM/50ML D5W 50 ML IV SCH (09:00)
[2024-06-14] MEDS: ASPirin 81 mg TAB PO SCH (10:00)
[2024-06-14] MEDS: ENOXAPARIN SOD 40 MG/0.4 ML SYRINGE SC SCH (10:00)
[2024-06-14] MEDS: InsuLIN REG 1unit/0.01ml Soln (100units/ml) SC SCH (12:00)
[2024-06-14] MEDS: ACCU-CHEK COMFORT CURVE STRIP VI SCH (12:01)
[2024-06-14 13:20] VITALS: O2SAT 94
[2024-06-14] MEDS: INSULIN LANTUS (GLARGINE) 1 /0.01ml (100units/ml) SC ONE (14:00)
[2024-06-14] MEDS: AZITHROMYCIN 500MG/ 250ML 250 ML IV ONE (14:00)
[2024-06-14] MEDS: methylPREDNISolone SOD SUCC 40 MG/ML VL IV ONE (14:00)
[2024-06-14] MEDS: ACETAMINOPHEN 325 MG TAB PO PRN (16:50)
[2024-06-14 18:56] LABS: Amphetamine Screen, Urine Neg (NEGATIVE); Barbiturate Scree,Urine Neg (NEGATIVE); Benzodiazephine Screen, Urine Neg (NEGATIVE); Cannabinoid Screen, Urine Pos (NEGATIVE); Cocaine Screen, Urine Neg (NEGATIVE); Opiate Scree,Urine Neg (NEGATIVE); Phencyclidine Screen, Urine Neg (NEGATIVE)
[2024-06-14 19:37] LABS: Chloride 97 mmol/L (98-107); Potassium 3.4 mmol/L (3.5-5.1); Sodium 133 mmol/L (136-145)
[2024-06-14 19:38] LABS: Anion Gap 9 (5-15); Carbon Dioxide 27 mmol/L (20-30)
[2024-06-14 19:39] LABS: Calcium 8.9 mg/dL (8.7-10.4)
[2024-06-14 19:43] LABS: Glucose 207 mg/dL (74-106)
[2024-06-14 19:44] LABS: BUN/Creatinine Ratio 15.2 (10.0-20.0); Blood Urea Nitrogen 21 mg/dL (9-23)
[2024-06-14 19:59] LABS: Lactic Acid w/Reflex 2.2 mmol/L (0.4-2.0)
[2024-06-14] MEDS: POTASSIUM EFFERVESENT TAB 25 MEQ PO ONE (20:47)
[2024-06-14 21:22] LABS: Base Excess 1.7 mmol/L (-2.0-2.0)
[2024-06-14] MEDS: ATORVASTATIN 20 MG TAB PO SCH (21:43)
[2024-06-14] MEDS: methylPREDNISolone SOD SUCC 40 MG/ML VL IV SCH (21:44)
[2024-06-14] MEDS: SODIUM CHLORIDE 0.9% 500 ML IV ONE (23:04)
[2024-06-15] VITALS (13 sets, daily range): BP systolic 134–163; BP diastolic 83–109; PULSE 72–97; RESP 16–20; TEMP 97.8–98.4; O2SAT 93–98
[2024-06-15] MEDS: hydrALAZINE HCL 20 MG/ML VL IV ONE (02:06)
[2024-06-15 03:24] LABS: Basophils # (auto) 0.1 10 ^3/uL (0-0.2); Basophils % (auto) 0.4 % (0.0-2.0); Eosinophils # (auto) 0 10 ^3/uL (0-0.8); Hematocrit 51.5 % (41.0-53.0); Hemoglobin 17.6 g/dL (13.5-17.5); Lymphocytes # (auto) 0.5 10 ^3/uL (0.4-5.4); Lymphocytes % (auto) 3.3 % (10.0-50.0); Mean Corpuscular Hemoglobin 31.8 pg (28.0-32.0); Mean Corpuscular Hgb Conc. 34.3 g/dL (32.0-36.0); Mean Corpuscular Volume 92.7 fL (80.0-100.0); Monocytes # (auto) 0.4 10 ^3/uL (0-1.3); Monocytes % (auto) 2.8 % (0.0-12.0); Neutrophils # (auto) 14.8 10 ^3/uL (1.6-8.6); Neutrophils % (auto) 93.5 % (37.0-80.0); Red Blood Cells 5.55 10^6/uL (4.5-5.90); Red Cell Distribution Width 14.7 % (11.8-14.3); White Blood Cell 15.8 10^3/uL (4.4-10.8)
[2024-06-15 03:35] LABS: Alanine Aminotransferase 29 U/L (7-40); Albumin 4.5 g/dL (3.2-4.8); Alkaline Phosphatase 95 U/L (46-116); Anion Gap 10 (5-15); Aspartate Aminotransferase 24 U/L (13-40); BUN/Creatinine Ratio 18.1 (10.0-20.0); Bilirubin, Total 1.5 mg/dL (0.2-1.0); Blood Urea Nitrogen 23 mg/dL (9-23); Calcium 9.1 mg/dL (8.7-10.4); Carbon Dioxide 27 mmol/L (20-30); Chloride 95 mmol/L (98-107); Glucose 228 mg/dL (74-106); Potassium 3.5 mmol/L (3.5-5.1); Sodium 132 mmol/L (136-145); Total Protein 7.1 g/dL (5.7-8.2)
[2024-06-15 03:45] LABS: COVID19 ANTIGEN SOFIA FIA NEGATIVE (NEGATIVE); Rapid Influenza A Negative (Negative); Rapid Influenza B Negative (Negative)
[2024-06-15] MEDS: cloNIDine HCL 0.1 MG TAB PO ONE (04:36)
[2024-06-15] MEDS: INSULIN LANTUS (GLARGINE) 1 /0.01ml (100units/ml) SC SCH (09:01)
[2024-06-15] MEDS ORDERED: AZITHROMYCIN 500MG/ 250ML 250 ML IV SCH (10:00)
[2024-06-15] MEDS: HYDROcodone-ACET 5/325MG TAB PO PRN (10:38)
[2024-06-15] MEDS: INSULIN LANTUS (GLARGINE) 1 /0.01ml (100units/ml) SC ONE (13:45)
[2024-06-15] MEDS: SODIUM CHLORIDE 0.9% 1,000 ML IV ONE (13:45)
[2024-06-15 14:09] LABS: Bilirubin, Direct 0.5 mg/dL (<0.3); Bilirubin, Total 1.4 mg/dL (0.2-1.0)
[2024-06-15 14:30] LABS: Free T3 2.69 pg/mL (2.3-4.2)
[2024-06-15 14:31] LABS: Free T4 (Free Thyroxine) 1.3 ng/dL (0.89-1.76)
[2024-06-15] MEDS ORDERED: METOPROLOL TARTRATE 25 MG TAB PO SCH (22:00)
[2024-06-15] MEDS: METOPROLOL TARTRATE 25 MG TAB PO SCH (22:27)
[2024-06-16 01:00] VITALS: BP 138/93; PULSE 78; RESP 20; TEMP 98.4; O2SAT 96
[2024-06-16 05:00] VITALS: BP 134/87; PULSE 76; RESP 18; TEMP 98.3; O2SAT 96
[2024-06-16 06:51] LABS: Basophils # (auto) 0 10 ^3/uL (0-0.2); Eosinophils # (auto) 0 10 ^3/uL (0-0.8); Hematocrit 47.6 % (41.0-53.0); Lymphocytes # (auto) 0.5 10 ^3/uL (0.4-5.4); Lymphocytes % (auto) 3.6 % (10.0-50.0); Mean Corpuscular Hemoglobin 32.8 pg (28.0-32.0); Mean Corpuscular Hgb Conc. 35.6 g/dL (32.0-36.0); Monocytes # (auto) 0.6 10 ^3/uL (0-1.3); Monocytes % (auto) 4.2 % (0.0-12.0); Neutrophils # (auto) 12.6 10 ^3/uL (1.6-8.6); Neutrophils % (auto) 92.2 % (37.0-80.0); Red Blood Cells 5.17 10^6/uL (4.5-5.90); Red Cell Distribution Width 14.7 % (11.8-14.3); White Blood Cell 13.7 10^3/uL (4.4-10.8)
[2024-06-16 07:04] LABS: Alanine Aminotransferase 25 U/L (7-40); Albumin 4.3 g/dL (3.2-4.8); Alkaline Phosphatase 82 U/L (46-116); Anion Gap 7 (5-15); Aspartate Aminotransferase 19 U/L (13-40); BUN/Creatinine Ratio 24.3 (10.0-20.0); Bilirubin, Total 2.1 mg/dL (0.2-1.0); Blood Urea Nitrogen 27 mg/dL (9-23); Calcium 8.7 mg/dL (8.7-10.4); Carbon Dioxide 33 mmol/L (20-30); Chloride 91 mmol/L (98-107); Glucose 193 mg/dL (74-106); Potassium 3.3 mmol/L (3.5-5.1); Sodium 131 mmol/L (136-145); Total Protein 6.7 g/dL (5.7-8.2)
[2024-06-16 07:43] VITALS: PULSE 92; O2SAT 95
[2024-06-16] MEDS: SODIUM CHLORIDE 0.9% 1,000 ML IV ONE (07:45)
[2024-06-16 08:00] VITALS: PULSE 89
[2024-06-16] MEDS: ALBUTEROL SULF 2.5 MG/0.5ML(0.5%) NEB SOLN NEB PRN (08:29)
[2024-06-16] MEDS: POTASSIUM EFFERVESENT TAB 25 MEQ PO ONE (08:37)
[2024-06-16 09:00] VITALS: BP 143/107; PULSE 92; RESP 19; TEMP 98.7; O2SAT 95
[2024-06-16] MEDS: INSULIN LANTUS (GLARGINE) 1 /0.01ml (100units/ml) SC SCH (10:00)
[2024-06-16] MEDS ORDERED: CEFP200T15 PO (12:52)
[2024-06-16] MEDS ORDERED: MET25T PO (12:52)
[2024-06-16] MEDS ORDERED: PRED20TA2 PO (12:52)
[2024-06-16] MEDS ORDERED: AZITTAB PO (12:52)
[2024-06-16 13:00] VITALS: BP 137/93; PULSE 88; RESP 19; TEMP 99.6; O2SAT 97
[2024-06-16] MEDS: MAGNESIUM SULFATE 1GM/100ML 100 ML IV SCH (13:00)
[2024-06-19 09:08] LABS: Hepatitis B Surface Antibody Positive (Negative)
[2024-06-19 09:19] LABS: Hepatitis B Surface Antigen Negative (Negative)
[2024-06-19 09:41] LABS: Hepatitis B Core IgM Negative
[2024-06-19 09:42] LABS: Hepatitis A Ab IgM Negative; Hepatitis C Antibody Negative (Negative)
== END 2024-06-16 16:10 | disposition home health service (06) | DRG 720 ==
LOC: ER 19:45 → TELE 23:58 → TELE-EAST 06-15 04:10
PROVIDERS: ADMIT Internal Medicine Pulmonary Disease; ATTEND Internal Medicine Pulmonary Disease
PROC: 5A09357 Assistance with Respiratory Ventilation, Less than 24 Consecutive Hours, Continuous Positive Airway Pressure (ICD-10-PCS; principal; 2024-06-15)
DX: A41.9 Sepsis, unspecified organism (principal); J96.20 Acute and chronic respiratory failure, unspecified whether with hypoxia or hypercapnia; N17.0 Acute kidney failure with tubular necrosis; R65.21 Severe sepsis with septic shock; I11.0 Hypertensive heart disease with heart failure; J18.9 Pneumonia, unspecified organism; I50.9 Heart failure, unspecified; C38.2 Malignant neoplasm of posterior mediastinum; J44.1 Chronic obstructive pulmonary disease with (acute) exacerbation; Z20.822 Contact with and (suspected) exposure to COVID-19; E78.5 Hyperlipidemia, unspecified; J44.0 Chronic obstructive pulmonary disease with (acute) lower respiratory infection; F17.210 Nicotine dependence, cigarettes, uncomplicated; E11.65 Type 2 diabetes mellitus with hyperglycemia; E80.6 Other disorders of bilirubin metabolism
CPT/HCPCS: 36415; 36600; 71045; 71250; 76705; 80048; 80053; 80074; 80307; 81001; 82247; 82248; 82805; 82962; 83036; 83605; 83735; 83880; 84439; 84443; 84481; 84484; 85025; 85379; 86706; 87040; 87426; 87804; 93306; 93970; 94640; 94660; 96365; 96375; 99291; G0378; J1815

== ENCOUNTER 2024-06-18 00:26 | Inpatient (IN) | payer MEDICAID ==
[~2024-06-18] VITALS: Ht 182.9 cm; Wt 116.5 kg
[2024-06-18] VITALS (10 sets, daily range): BP systolic 113–128; BP diastolic 68–71; PULSE 88–103; RESP 16–20; TEMP 97.8–98.1; O2SAT 95–98
[~2024-06-18 00:26] MED LIST changes: +AZITTAB PO; -CARV6.2551 PO; +CEFP200T15 PO; -FLUT1INH27 INH; -LEVO500T91 PO; +MET25T PO; -METO-6 PO; -METO5TAB5 PO; +PRED20TA2 PO; -VARE1TAB11 PO
[2024-06-18 00:59] LABS: Basophils # (auto) 0 10 ^3/uL (0-0.2); Basophils % (auto) 0.2 % (0.0-2.0); Eosinophils # (auto) 0 10 ^3/uL (0-0.8); Eosinophils % (auto) 0.1 % (0.0-7.0); Hemoglobin 10.1 g/dL (13.5-17.5); Lymphocytes # (auto) 2.8 10 ^3/uL (0.4-5.4); Lymphocytes % (auto) 16.2 % (10.0-50.0); Mean Corpuscular Hemoglobin 32.1 pg (28.0-32.0); Mean Corpuscular Hgb Conc. 34.7 g/dL (32.0-36.0); Mean Corpuscular Volume 92.6 fL (80.0-100.0); Monocytes # (auto) 1.2 10 ^3/uL (0-1.3); Monocytes % (auto) 6.9 % (0.0-12.0); Neutrophils % (auto) 76.6 % (37.0-80.0); Nucleated Red Blood Cells % 0.1 %; Platelet Count (auto) 201 10^3/uL (140-450); Red Blood Cells 3.13 10^6/uL (4.5-5.90); Red Cell Distribution Width 14.9 % (11.8-14.3); White Blood Cell 16.9 10^3/uL (4.4-10.8)
[2024-06-18] MEDS: ALBUTEROL SULF 2.5 MG/0.5ML(0.5%) NEB SOLN NEB ONE (01:02)
[2024-06-18] MEDS: methylPREDNISolone SOD SUCC 125 MG/2 ML VL IM ONE (01:21)
[2024-06-18 01:23] LABS: Alanine Aminotransferase 18 U/L (7-40); Alkaline Phosphatase 48 U/L (46-116); Anion Gap 7 (5-15); Aspartate Aminotransferase < 8 U/L (13-40); BUN/Creatinine Ratio 51.3 (10.0-20.0); Calcium 8.6 mg/dL (8.7-10.4); Carbon Dioxide 30 mmol/L (20-30); Chloride 94 mmol/L (98-107); Potassium 3.5 mmol/L (3.5-5.1); Sodium 131 mmol/L (136-145)
[2024-06-18 01:24] LABS: Albumin 3.5 g/dL (3.2-4.8); Bilirubin, Total 1.6 mg/dL (0.2-1.0); Total Protein 5.4 g/dL (5.7-8.2)
[2024-06-18 01:33] LABS: Blood Urea Nitrogen 77 mg/dL (9-23); Glucose 311 mg/dL (74-106)
[2024-06-18] MEDS: ENOXAPARIN SOD 120 MG/0.8 ML SYRINGE SC ONE (01:51)
[2024-06-18] MEDS: ASPirin 81 mg TAB PO ONE (01:52)
[2024-06-18] MEDS ORDERED: ALBUTEROL SULF 2.5 MG/0.5ML(0.5%) NEB SOLN NEB PRN (03:15)
[2024-06-18] MEDS ORDERED: DOCUSATE SOD 100 MG CAP PO PRN (03:15)
[2024-06-18] MEDS ORDERED: DEXTROSE (50%) 50ML SYRG IV PRN ×2 (03:15→13:15)
[2024-06-18] MEDS ORDERED: ONDANSETRON HCL 4 MG/2 ML VIAL IV PRN (03:15)
[2024-06-18] MEDS ORDERED: NITROGLYCERIN 0.4 MG SL TAB SL PRN (03:45)
[2024-06-18 04:15] LABS: Basophils # (auto) 0 10 ^3/uL (0-0.2); Eosinophils # (auto) 0 10 ^3/uL (0-0.8); Hemoglobin 10.2 g/dL (13.5-17.5); Lymphocytes # (auto) 0.9 10 ^3/uL (0.4-5.4); Lymphocytes % (auto) 5.2 % (10.0-50.0); Mean Corpuscular Hemoglobin 32.7 pg (28.0-32.0); Mean Corpuscular Hgb Conc. 35.2 g/dL (32.0-36.0); Mean Corpuscular Volume 92.8 fL (80.0-100.0); Monocytes # (auto) 0.6 10 ^3/uL (0-1.3); Monocytes % (auto) 3.4 % (0.0-12.0); Neutrophils # (auto) 16.5 10 ^3/uL (1.6-8.6); Neutrophils % (auto) 91.4 % (37.0-80.0); Platelet Count (auto) 202 10^3/uL (140-450); Red Blood Cells 3.13 10^6/uL (4.5-5.90); White Blood Cell 18.1 10^3/uL (4.4-10.8)
[2024-06-18 04:23] LABS: Alanine Aminotransferase 20 U/L (7-40); Alkaline Phosphatase 51 U/L (46-116); Anion Gap 6 (5-15); BUN/Creatinine Ratio 59.2 (10.0-20.0); Calcium 8.9 mg/dL (8.7-10.4); Carbon Dioxide 32 mmol/L (20-30); Chloride 92 mmol/L (98-107); Glucose 374 mg/dL (74-106); Potassium 3.8 mmol/L (3.5-5.1); Sodium 130 mmol/L (136-145)
[2024-06-18 04:24] LABS: Albumin 3.7 g/dL (3.2-4.8); Aspartate Aminotransferase 9 U/L (13-40); Bilirubin, Total 1.5 mg/dL (0.2-1.0); Total Protein 5.5 g/dL (5.7-8.2)
[2024-06-18 04:41] LABS: Blood Urea Nitrogen 84 mg/dL (9-23)
[2024-06-18] MEDS: SODIUM CHLORIDE 0.9% 1,000 ML IV SCH ×2 (05:37→13:49)
[2024-06-18] MEDS: methylPREDNISolone SOD SUCC 40 MG/ML VL IV SCH (06:57)
[2024-06-18] MEDS: InsuLIN REG 1unit/0.01ml Soln (100units/ml) SC SCH ×2 (07:00→13:36)
[2024-06-18] MEDS: ACCU-CHEK COMFORT CURVE STRIP VI SCH ×3 (07:00→13:36)
[2024-06-18 08:44] LABS: LDL Cholesterol 49 mg/dL (< 100); Triglycerides 298 mg/dL (< 150)
[2024-06-18 08:46] LABS: Cholesterol 126 mg/dL (< 200); HDL Cholesterol 36 mg/dL (40-59)
[2024-06-18] MEDS: ASPirin 81 mg TAB PO SCH (10:00)
[2024-06-18] MEDS: INSULIN LANTUS (GLARGINE) 1 /0.01ml (100units/ml) SC SCH (10:50)
[2024-06-18] MEDS: FAMOTIDINE (10MG/ML) 2ML VL IV SCH (11:02)
[2024-06-18] MEDS ORDERED: InsuLIN REG 1unit/0.01ml Soln (100units/ml) SC SCH ×2 (12:00→22:00)
[2024-06-18] MEDS: PIPERACILLIN-TAZOB 3.375GM 100 ML IV ONE (13:48)
[2024-06-18 14:20] LABS: Urine Bacteria None Seen /hpf (None Seen); Urine WBC None Seen /hpf (0 - 3)
[2024-06-18 14:36] LABS: Urine Blood Negative /uL (Negative); Urine Clarity Clear (Clear); Urine Color Light-Yellow (Yellow); Urine Protein, UAD Negative (Negative); Urine Specific Gravity 1.019 (1.001-1.035); Urine Urobilinogen Normal (Negative); Urine pH 5.5 (5.0-9.0)
[2024-06-18 17:21] LABS: Hematocrit 26.3 % (41.0-53.0); Hemoglobin 9.1 g/dL (13.5-17.5)
[2024-06-18] MEDS ORDERED: ATORVASTATIN 20 MG TAB PO SCH (22:00)
[2024-06-18] MEDS: PIPERACILLIN-TAZOB 3.375GM 100 ML IV SCH (22:01)
[2024-06-18] MEDS: ATORVASTATIN 20 MG TAB PO SCH (22:02)
[2024-06-19] VITALS (11 sets, daily range): BP systolic 129–163; BP diastolic 70–86; PULSE 66–103; RESP 16–19; TEMP 97.6–98.3; O2SAT 95–100
[2024-06-19] MEDS: ACETAMINOPHEN 325 MG TAB PO PRN (03:11)
[2024-06-19 06:46] LABS: Basophils # (auto) 0 10 ^3/uL (0-0.2); Eosinophils # (auto) 0 10 ^3/uL (0-0.8); Hemoglobin 8.4 g/dL (13.5-17.5); Monocytes # (auto) 0.6 10 ^3/uL (0-1.3); White Blood Cell 14.7 10^3/uL (4.4-10.8)
[2024-06-19 06:49] LABS: Hematocrit 23.6 % (41.0-53.0); Lymphocytes # (auto) 0.8 10 ^3/uL (0.4-5.4); Lymphocytes % (auto) 5.5 % (10.0-50.0); Mean Corpuscular Hemoglobin 33.1 pg (28.0-32.0); Mean Corpuscular Hgb Conc. 35.5 g/dL (32.0-36.0); Mean Corpuscular Volume 93.1 fL (80.0-100.0); Monocytes % (auto) 4.1 % (0.0-12.0); Neutrophils # (auto) 13.2 10 ^3/uL (1.6-8.6); Neutrophils % (auto) 90.4 % (37.0-80.0); Platelet Count (auto) 201 10^3/uL (140-450); Red Blood Cells 2.53 10^6/uL (4.5-5.90); Red Cell Distribution Width 15.3 % (11.8-14.3)
[2024-06-19 06:54] LABS: Alanine Aminotransferase 20 U/L (7-40); Albumin 3.7 g/dL (3.2-4.8); Alkaline Phosphatase 48 U/L (46-116); Anion Gap 4 (5-15); BUN/Creatinine Ratio 37.4 (10.0-20.0); Calcium 9.2 mg/dL (8.7-10.4); Carbon Dioxide 32 mmol/L (20-30); Chloride 97 mmol/L (98-107); Potassium 3.4 mmol/L (3.5-5.1); Sodium 133 mmol/L (136-145)
[2024-06-19 06:55] LABS: Aspartate Aminotransferase 13 U/L (13-40); Bilirubin, Total 1.1 mg/dL (0.2-1.0); Total Protein 5.4 g/dL (5.7-8.2)
[2024-06-19 06:56] LABS: Blood Urea Nitrogen 46 mg/dL (9-23); Glucose 185 mg/dL (74-106)
[2024-06-19] MEDS: PANTOPRAZOLE 40 MG/10 ML VIAL INJ IV ONE (10:23)
[2024-06-19] MEDS: HYDROcodone-ACET 5/325MG TAB PO PRN (11:36)
[2024-06-19] MEDS: POTASSIUM EFFERVESENT TAB 25 MEQ PO ONE (13:29)
[2024-06-19] MEDS ORDERED: IOHEXOL 300 MG/ML 100ML BOTTLE IJ ONE (14:25)
[2024-06-19] MEDS ORDERED: KETAMINE 50mg/ML 1ml syringe IV ONE (15:07)
[2024-06-19] MEDS: NICOTINE 7MG/24HR TOPICAL PATCH TD SCH (16:51)
[2024-06-19 16:57] LABS: Hematocrit 22.4 % (41.0-53.0); Hemoglobin 7.8 g/dL (13.5-17.5)
[2024-06-19] MEDS: MORPHINE SULFATE INJ 2 MG/ml SYRG IV PRN (17:25)
[2024-06-19] MEDS ORDERED: fentaNYL CITRATE 100 MCG/2 ML VL ONE (19:12)
[2024-06-19] MEDS ORDERED: MIDAZOLAM HCL 2MG/2ML 2ml VIAL (1mg/ml) ONE (19:12)
[2024-06-19 19:55] LABS: Hemoglobin 7.7 g/dL (13.5-17.5)
[2024-06-19] MEDS ORDERED: PROPOFOL 10 MG/ML 20 ML IV ONE (19:58)
[2024-06-19 19:59] LABS: Hematocrit 22.8 % (41.0-53.0)
[2024-06-19] MEDS: PANTOPRAZOLE 40 MG/10 ML VIAL INJ IV SCH (22:08)
[2024-06-19] MEDS: ONDANSETRON HCL 4 MG/2 ML VIAL IV ONE (22:08)
[2024-06-20] VITALS (10 sets, daily range): BP systolic 126–144; BP diastolic 63–92; PULSE 79–110; RESP 16–20; TEMP 97.6–98.3; O2SAT 94–98
[2024-06-20] MEDS: MORPHINE SULFATE INJ 2 MG/ml SYRG IV PRN (05:02)
[2024-06-20 06:05] LABS: Basophils # (auto) 0 10 ^3/uL (0-0.2); Basophils % (auto) 0.1 % (0.0-2.0); Eosinophils # (auto) 0 10 ^3/uL (0-0.8); Hematocrit 26.6 % (41.0-53.0); Hemoglobin 9.3 g/dL (13.5-17.5); Lymphocytes # (auto) 1.1 10 ^3/uL (0.4-5.4); Lymphocytes % (auto) 6.1 % (10.0-50.0); Mean Corpuscular Hemoglobin 32.4 pg (28.0-32.0); Mean Corpuscular Hgb Conc. 34.9 g/dL (32.0-36.0); Monocytes # (auto) 1.1 10 ^3/uL (0-1.3); Monocytes % (auto) 6.3 % (0.0-12.0); Neutrophils # (auto) 15.4 10 ^3/uL (1.6-8.6); Neutrophils % (auto) 87.5 % (37.0-80.0); Nucleated Red Blood Cells % 0.1 %; Platelet Count (auto) 226 10^3/uL (140-450); Red Blood Cells 2.86 10^6/uL (4.5-5.90); Red Cell Distribution Width 14.6 % (11.8-14.3); White Blood Cell 17.6 10^3/uL (4.4-10.8)
[2024-06-20 06:16] LABS: Alanine Aminotransferase 24 U/L (7-40); Albumin 3.7 g/dL (3.2-4.8); Alkaline Phosphatase 50 U/L (46-116); Anion Gap 4 (5-15); Aspartate Aminotransferase 19 U/L (13-40); BUN/Creatinine Ratio 22.2 (10.0-20.0); Calcium 9.2 mg/dL (8.7-10.4); Carbon Dioxide 30 mmol/L (20-30); Chloride 100 mmol/L (98-107); Glucose 106 mg/dL (74-106); Potassium 4.2 mmol/L (3.5-5.1); Sodium 134 mmol/L (136-145); Total Protein 5.6 g/dL (5.7-8.2)
[2024-06-20 06:23] LABS: Blood Urea Nitrogen 24 mg/dL (9-23)
[2024-06-20] MEDS ORDERED: NICOTINE 7MG/24HR TOPICAL PATCH TD SCH (14:30)
[2024-06-20] MEDS: ASPirin 81 mg TAB PO SCH (16:00)
[2024-06-20] MEDS ORDERED: LACTULOSE 20Gm/30ML SOLN PO SCH (22:00)
[2024-06-20] MEDS: LACTULOSE 20Gm/30ML SOLN PO PRN (23:32)
[2024-06-21] VITALS (11 sets, daily range): BP systolic 106–148; BP diastolic 56–91; PULSE 77–112; RESP 16–20; TEMP 97.6–98.4; O2SAT 90–100
[2024-06-21 06:06] LABS: Basophils # (auto) 0 10 ^3/uL (0-0.2); Basophils % (auto) 0.1 % (0.0-2.0); Eosinophils # (auto) 0 10 ^3/uL (0-0.8); Eosinophils % (auto) 0.2 % (0.0-7.0); Hematocrit 25.4 % (41.0-53.0); Hemoglobin 8.8 g/dL (13.5-17.5); Lymphocytes % (auto) 23.1 % (10.0-50.0); Mean Corpuscular Hemoglobin 32.3 pg (28.0-32.0); Mean Corpuscular Hgb Conc. 34.7 g/dL (32.0-36.0); Mean Corpuscular Volume 93.1 fL (80.0-100.0); Monocytes # (auto) 1.9 10 ^3/uL (0-1.3); Monocytes % (auto) 10.7 % (0.0-12.0); Neutrophils # (auto) 11.5 10 ^3/uL (1.6-8.6); Neutrophils % (auto) 65.9 % (37.0-80.0); Nucleated Red Blood Cells % 0.3 %; Platelet Count (auto) 245 10^3/uL (140-450); Red Blood Cells 2.73 10^6/uL (4.5-5.90); Red Cell Distribution Width 14.9 % (11.8-14.3); White Blood Cell 17.4 10^3/uL (4.4-10.8)
[2024-06-21 06:09] LABS: Alanine Aminotransferase 40 U/L (7-40); Albumin 3.4 g/dL (3.2-4.8); Alkaline Phosphatase 78 U/L (46-116); Anion Gap 3 (5-15); BUN/Creatinine Ratio 20.2 (10.0-20.0); Blood Urea Nitrogen 24 mg/dL (9-23); Calcium 9.4 mg/dL (8.7-10.4); Carbon Dioxide 30 mmol/L (20-30); Chloride 102 mmol/L (98-107); Glucose 114 mg/dL (74-106); Potassium 3.9 mmol/L (3.5-5.1); Sodium 135 mmol/L (136-145)
[2024-06-21 06:10] LABS: Aspartate Aminotransferase 41 U/L (13-40); Bilirubin, Total 0.5 mg/dL (0.2-1.0)
[2024-06-21] MEDS: GOLYTELY 4L KIT PO ONE (12:01)
[2024-06-21] MEDS: BISACODYL 5 MG EC TAB PO ONE ×2 (12:01→21:24)
[2024-06-22] VITALS (11 sets, daily range): BP systolic 99–132; BP diastolic 59–88; PULSE 79–118; RESP 15–20; TEMP 97.9–98.6; O2SAT 94–98
[2024-06-22 06:18] LABS: Hemoglobin 9.4 g/dL (13.5-17.5); Mean Corpuscular Hemoglobin 32.8 pg (28.0-32.0); Mean Corpuscular Hgb Conc. 34.8 g/dL (32.0-36.0); Mean Corpuscular Volume 94.4 fL (80.0-100.0); Platelet Count (auto) 283 10^3/uL (140-450); Red Blood Cells 2.86 10^6/uL (4.5-5.90); Red Cell Distribution Width 15.1 % (11.8-14.3); White Blood Cell 16.4 10^3/uL (4.4-10.8)
[2024-06-22 06:29] LABS: Basophils % (manual) 0 (0.0-2.0); Blast Cells 0; Myelocytes % 0; Promyelocytes % 0; Reactive Lymphocytes 0
[2024-06-22 06:34] LABS: INR 1.07 (0.9-1.15); Partial Thromboplastin Time 23.2 SEC (24.5-34.5); Prothrombin Time 11.3 sec (9.3-11.8)
[2024-06-22 06:44] LABS: Alanine Aminotransferase 46 U/L (7-40); Alkaline Phosphatase 95 U/L (46-116); Anion Gap 6 (5-15); BUN/Creatinine Ratio 12.8 (10.0-20.0); Blood Urea Nitrogen 14 mg/dL (9-23); Calcium 8.7 mg/dL (8.7-10.4); Carbon Dioxide 30 mmol/L (20-30); Chloride 102 mmol/L (98-107); Glucose 74 mg/dL (74-106); Potassium 3.6 mmol/L (3.5-5.1); Sodium 138 mmol/L (136-145)
[2024-06-22 06:45] LABS: Albumin 3.3 g/dL (3.2-4.8); Aspartate Aminotransferase 35 U/L (13-40); Bilirubin, Total 0.6 mg/dL (0.2-1.0)
[2024-06-22 09:25] LABS: Band Neutrophils % (manual) 3; Eosinophils % (manual) 1 (0-7); Lymphocytes % (manual) 16 (10.0-50.0); Metamyelocytes % 4; Monocytes % (manual) 6 (0-12); Platelet Estimate Adequate
[2024-06-22] MEDS ORDERED: fentaNYL CITRATE 100 MCG/2 ML VL ONE (14:02)
[2024-06-22] MEDS ORDERED: MIDAZOLAM HCL 2MG/2ML 2ml VIAL (1mg/ml) ONE (14:02)
[2024-06-22] MEDS ORDERED: PROPOFOL 10 MG/ML 20 ML IV ONE (14:06)
[2024-06-23] VITALS (7 sets, daily range): BP systolic 126–146; BP diastolic 74–91; PULSE 83–103; RESP 16–20; TEMP 97.6–99.6; O2SAT 95–100
[2024-06-23 06:16] LABS: Hematocrit 27.2 % (41.0-53.0); Hemoglobin 9.3 g/dL (13.5-17.5); Mean Corpuscular Hemoglobin 32.5 pg (28.0-32.0); Mean Corpuscular Hgb Conc. 34.1 g/dL (32.0-36.0); Mean Corpuscular Volume 95.4 fL (80.0-100.0); Platelet Count (auto) 286 10^3/uL (140-450); Red Blood Cells 2.86 10^6/uL (4.5-5.90); Red Cell Distribution Width 15.6 % (11.8-14.3); White Blood Cell 15.2 10^3/uL (4.4-10.8)
[2024-06-23 06:17] LABS: Alanine Aminotransferase 47 U/L (7-40); Albumin 3.3 g/dL (3.2-4.8); Alkaline Phosphatase 119 U/L (46-116); Anion Gap 3 (5-15); Aspartate Aminotransferase 35 U/L (13-40); BUN/Creatinine Ratio 13.8 (10.0-20.0); Bilirubin, Total 0.4 mg/dL (0.2-1.0); Blood Urea Nitrogen 17 mg/dL (9-23); Calcium 8.5 mg/dL (8.7-10.4); Carbon Dioxide 31 mmol/L (20-30); Chloride 105 mmol/L (98-107); Glucose 104 mg/dL (74-106); Potassium 3.9 mmol/L (3.5-5.1); Sodium 139 mmol/L (136-145); Total Protein 5.1 g/dL (5.7-8.2)
[2024-06-23 06:35] LABS: Basophils % (manual) 0 (0.0-2.0); Blast Cells 0; Metamyelocytes % 0; Myelocytes % 0; Promyelocytes % 0; Reactive Lymphocytes 0
[2024-06-23 08:12] LABS: Band Neutrophils % (manual) 4; Eosinophils % (manual) 1 (0-7); Lymphocytes % (manual) 18 (10.0-50.0); Monocytes % (manual) 6 (0-12)
[2024-06-23 08:13] LABS: Anisocytosis Slight; Platelet Estimate Adequate
[2024-06-23] MEDS ORDERED: PANT40TA2 PO (18:23)
== END 2024-06-23 18:38 | disposition home or self-care (01) | DRG 241 ==
LOC: EDBD 00:26 → ER 00:26 → TELE 03:38 → TELE-E-ADS 06:26
PROVIDERS: ADMIT Internal Medicine Pulmonary Disease; ATTEND Internal Medicine Pulmonary Disease
PROC: 30233N1 Transfusion of Nonautologous Red Blood Cells into Peripheral Vein, Percutaneous Approach (ICD-10-PCS; 2024-06-19)
PROC: 0DB78ZX Excision of Stomach, Pylorus, Via Natural or Artificial Opening Endoscopic, Diagnostic (ICD-10-PCS; principal; 2024-06-19 19:09)
PROC: 0DJD8ZZ Inspection of Lower Intestinal Tract, Via Natural or Artificial Opening Endoscopic (ICD-10-PCS; 2024-06-22)
DX: K29.71 Gastritis, unspecified, with bleeding (principal); J96.00 Acute respiratory failure, unspecified whether with hypoxia or hypercapnia; I21.A1 Myocardial infarction type 2; D62 Acute posthemorrhagic anemia; E11.65 Type 2 diabetes mellitus with hyperglycemia; D64.9 Anemia, unspecified; J44.0 Chronic obstructive pulmonary disease with (acute) lower respiratory infection; N17.9 Acute kidney failure, unspecified; K29.81 Duodenitis with bleeding; J44.1 Chronic obstructive pulmonary disease with (acute) exacerbation; D72.829 Elevated white blood cell count, unspecified; E78.5 Hyperlipidemia, unspecified; E66.9 Obesity, unspecified; G89.29 Other chronic pain; J98.11 Atelectasis; K44.9 Diaphragmatic hernia without obstruction or gangrene; I11.0 Hypertensive heart disease with heart failure; I50.9 Heart failure, unspecified; Z68.34 Body mass index [BMI] 34.0-34.9, adult; K64.8 Other hemorrhoids; K52.9 Noninfective gastroenteritis and colitis, unspecified; K20.90 Esophagitis, unspecified without bleeding
CPT/HCPCS: 36415; 71045; 71260; 74150; 74178; 80053; 80061; 81001; 82010; 82270; 82962; 83735; 83880; 84443; 84484; 85007; 85014; 85018; 85025; 85027; 85610; 85730; 86850; 86900; 86901; 86920; 93005; 94640; 96372; G0378; J1815; J2250; J2405; J2470; J2543; J2704; J3490

== ENCOUNTER 2024-08-17 23:28 | Inpatient (IN) | payer MEDICAID ==
[~2024-08-17] VITALS: Ht 172.7 cm; Wt 121.5 kg
[~2024-08-17 23:28] MED LIST changes: -AZITTAB PO; -CEFP200T15 PO; +PANT40TA2 PO; -PRED20TA2 PO
[2024-08-18] VITALS (11 sets, daily range): BP systolic 161; BP diastolic 105; PULSE 88–103; RESP 16–23; TEMP 97.7; O2SAT 94–97
[2024-08-18] MEDS: ALBUTEROL SULF 2.5 MG/0.5ML(0.5%) NEB SOLN NEB ONE (00:01)
[2024-08-18] MEDS: IPRATROPIUM BROM 0.5 MG/2.5ML INH SOL NEB ONE (00:01)
[2024-08-18 00:07] LABS: Basophils # (auto) 0 10 ^3/uL (0-0.2); Basophils % (auto) 0.4 % (0.0-2.0); Eosinophils # (auto) 0.1 10 ^3/uL (0-0.8); Eosinophils % (auto) 1.3 % (0.0-7.0); Hematocrit 48.4 % (41.0-53.0); Hemoglobin 16.3 g/dL (13.5-17.5); Lymphocytes # (auto) 2.1 10 ^3/uL (0.4-5.4); Lymphocytes % (auto) 24.3 % (10.0-50.0); Mean Corpuscular Hemoglobin 32.6 pg (28.0-32.0); Mean Corpuscular Hgb Conc. 33.7 g/dL (32.0-36.0); Mean Corpuscular Volume 96.6 fL (80.0-100.0); Monocytes # (auto) 0.7 10 ^3/uL (0-1.3); Neutrophils # (auto) 5.6 10 ^3/uL (1.6-8.6); Platelet Count (auto) 311 10^3/uL (140-450); Red Blood Cells 5.01 10^6/uL (4.5-5.90); Red Cell Distribution Width 15.5 % (11.8-14.3); White Blood Cell 8.5 10^3/uL (4.4-10.8)
[2024-08-18] MEDS: FUROSEMIDE 40 MG/4 ML VIAL IV ONE (00:16)
[2024-08-18] MEDS: methylPREDNISolone SOD SUCC 125 MG/2 ML VL IV ONE (00:16)
[2024-08-18 00:22] LABS: Urine Bacteria None Seen /hpf (None Seen)
[2024-08-18 00:22] LABS: Alanine Aminotransferase 23 U/L (7-40); Albumin 4.6 g/dL (3.2-4.8); Alkaline Phosphatase 133 U/L (46-116); Anion Gap 8 (5-15); Aspartate Aminotransferase 15 U/L (13-40); Bilirubin, Total 0.3 mg/dL (0.2-1.0); Blood Urea Nitrogen 11 mg/dL (9-23); Calcium 9.8 mg/dL (8.7-10.4); Carbon Dioxide 27 mmol/L (20-31); Chloride 95 mmol/L (98-107); Potassium 4.5 mmol/L (3.5-5.1); Sodium 130 mmol/L (136-145); Total Protein 6.9 g/dL (5.7-8.2)
[2024-08-18 00:25] LABS: Glucose 656 mg/dL (74-106)
[2024-08-18 00:35] LABS: Blood Alcohol 226.4 mg/dL (<10)
[2024-08-18 01:04] LABS: Urine Blood Negative /uL (Negative); Urine Clarity Clear (Clear); Urine Protein, UAD Negative (Negative); Urine Specific Gravity 1.032 (1.001-1.035); Urine Urobilinogen Normal (Negative); Urine WBC 1 /hpf (0 - 3); Urine pH 5.5 (5.0-9.0)
[2024-08-18 01:06] LABS: Urine Color STRAW (Yellow)
[2024-08-18] MEDS: InsuLIN REG 1unit/0.01ml Soln (100units/ml) IV ONE ×2 (03:06→08:45)
[2024-08-18] MEDS ORDERED: DEXTROSE (50%) 50ML SYRG IV PRN ×3 (05:00→08:30)
[2024-08-18 05:26] LABS: Sodium Urine 20 mmol/L (40-220)
[2024-08-18] MEDS ORDERED: INSULIN LANTUS (GLARGINE) 1 /0.01ml (100units/ml) SC SCH ×3 (05:30→10:00)
[2024-08-18 05:31] LABS: Protein, Urine < 6.0 mg/dL (1-14)
[2024-08-18 05:32] LABS: Amphetamine Screen, Urine Neg (NEGATIVE)
[2024-08-18 05:33] LABS: Barbiturate Scree,Urine Neg (NEGATIVE); Benzodiazephine Screen, Urine Neg (NEGATIVE); Cannabinoid Screen, Urine Neg (NEGATIVE); Cocaine Screen, Urine Neg (NEGATIVE); Opiate Scree,Urine Neg (NEGATIVE); Phencyclidine Screen, Urine Neg (NEGATIVE)
[2024-08-18 05:34] LABS: Creatinine, Urine 25.71 mg/dL (30.0-125.0); Urine Protein/Creatinine Ratio 0.23
[2024-08-18] MEDS: LEVALBUTEROL HCL 1.25 MG/3 ML NEB NEB SCH (05:34)
[2024-08-18] MEDS: IPRATROPIUM BROM 0.5 MG/2.5ML INH SOL NEB SCH (05:37)
[2024-08-18] MEDS: AZITHROMYCIN 500MG/ 250ML 250 ML IV SCH (05:44)
[2024-08-18] MEDS: THIAMINE 100mg/ml INJ (200mg/2ml VIAL) IM ONE (05:45)
[2024-08-18] MEDS: FUROSEMIDE 40 MG/4 ML VIAL IV SCH (06:27)
[2024-08-18] MEDS: ATORVASTATIN 20 MG TAB PO ONE (06:27)
[2024-08-18] MEDS: ACCU-CHEK COMFORT CURVE STRIP VI SCH ×3 (06:28→12:00)
[2024-08-18] MEDS: InsuLIN REG 1unit/0.01ml Soln (100units/ml) SC SCH ×3 (06:44→12:00)
[2024-08-18 06:45] LABS: Anion Gap 12 (5-15); Carbon Dioxide 24 mmol/L (20-31); Chloride 90 mmol/L (98-107); Potassium 4.9 mmol/L (3.5-5.1); Sodium 126 mmol/L (136-145)
[2024-08-18 06:46] LABS: Calcium 9.9 mg/dL (8.7-10.4)
[2024-08-18 06:47] LABS: INR 1.04 (0.9-1.15)
[2024-08-18 06:51] LABS: BUN/Creatinine Ratio 8.7 (10.0-20.0); Blood Urea Nitrogen 11 mg/dL (9-23)
[2024-08-18 06:55] LABS: Glucose 572 mg/dL (74-106)
[2024-08-18 07:39] LABS: Free T3 2.4 pg/mL (2.3-4.2)
[2024-08-18 07:40] LABS: Free T4 (Free Thyroxine) 1.42 ng/dL (0.89-1.76)
[2024-08-18] MEDS: INSULIN LANTUS (GLARGINE) 1 /0.01ml (100units/ml) SC SCH ×2 (08:22→22:29)
[2024-08-18 08:29] LABS: Phosphorus 4.3 mg/dL (2.4-5.1)
[2024-08-18 09:07] LABS: Hematocrit 49.2 % (41.0-53.0); Hemoglobin 16.5 g/dL (13.5-17.5); Mean Corpuscular Hemoglobin 32.4 pg (28.0-32.0); Mean Corpuscular Hgb Conc. 33.5 g/dL (32.0-36.0); Mean Corpuscular Volume 96.6 fL (80.0-100.0); Platelet Count (auto) 269 10^3/uL (140-450); Red Blood Cells 5.09 10^6/uL (4.5-5.90); Red Cell Distribution Width 15.4 % (11.8-14.3); White Blood Cell 11.7 10^3/uL (4.4-10.8)
[2024-08-18 09:11] LABS: Basophils % (manual) 0 (0.0-2.0); Blast Cells 0; Eosinophils % (manual) 0 (0-7); Metamyelocytes % 0; Myelocytes % 0; Promyelocytes % 0; Reactive Lymphocytes 0
[2024-08-18 09:58] LABS: Band Neutrophils % (manual) 5; Lymphocytes % (manual) 4 (10.0-50.0); Monocytes % (manual) 2 (0-12)
[2024-08-18 09:59] LABS: Anisocytosis Slight; Platelet Estimate Adequate
[2024-08-18] MEDS: FINASTERIDE 5 MG TAB PO SCH (10:00)
[2024-08-18] MEDS: ENOXAPARIN SOD 40 MG/0.4 ML SYRINGE SC SCH (10:36)
[2024-08-18] MEDS: PANTOPRAZOLE 40 MG TAB PO SCH (10:36)
[2024-08-18] MEDS: DULoxetine HCL 30 MG CAP PO SCH (10:36)
[2024-08-18] MEDS: ALLOPURINOL 100 MG TAB PO SCH (10:36)
[2024-08-18] MEDS: ASPirin-EC 81 mg tab PO SCH (10:37)
[2024-08-18] MEDS: predniSONE 20 MG TAB PO SCH (10:37)
[2024-08-18] MEDS: LISINOPRIL 20 MG TAB PO SCH (10:38)
[2024-08-18 11:30] LABS: Anion Gap 9 (5-15); Carbon Dioxide 31 mmol/L (20-31); Chloride 87 mmol/L (98-107); Potassium 3.9 mmol/L (3.5-5.1); Sodium 127 mmol/L (136-145)
[2024-08-18 11:31] LABS: Calcium 10.1 mg/dL (8.7-10.4)
[2024-08-18 11:36] LABS: BUN/Creatinine Ratio 13.7 (10.0-20.0); Blood Urea Nitrogen 21 mg/dL (9-23)
[2024-08-18 11:43] LABS: Glucose 548 mg/dL (74-106)
[2024-08-18] MEDS: TAMSULOSIN HYDROCHLORIDE 0.4 MG CAP PO SCH (18:20)
[2024-08-18] MEDS: MORPHINE SULFATE INJ 2 MG/ml SYRG IV PRN (18:22)
[2024-08-18 18:49] LABS: Chloride 89 mmol/L (98-107); Potassium 3.7 mmol/L (3.5-5.1); Sodium 126 mmol/L (136-145)
[2024-08-18 18:50] LABS: Anion Gap 7 (5-15); Carbon Dioxide 30 mmol/L (20-31)
[2024-08-18 18:55] LABS: BUN/Creatinine Ratio 15.2 (10.0-20.0); Blood Urea Nitrogen 23 mg/dL (9-23)
[2024-08-18 19:09] LABS: Glucose 451 mg/dL (74-106)
[2024-08-18] MEDS: INSULIN LISPRO (HUMAN) 100 UNITS/ML ML SC ONE (21:35)
[2024-08-18] MEDS: ATORVASTATIN 20 MG TAB PO SCH (22:08)
[2024-08-19] VITALS (19 sets, daily range): BP systolic 101–125; BP diastolic 58–84; PULSE 80–101; RESP 12–20; TEMP 97–97.9; O2SAT 94–99
[2024-08-19 02:07] LABS: COVID19 ANTIGEN SOFIA FIA NEGATIVE (NEGATIVE)
[2024-08-19 05:36] LABS: Basophils # (auto) 0 10 ^3/uL (0-0.2); Basophils % (auto) 0.1 % (0.0-2.0); Eosinophils # (auto) 0 10 ^3/uL (0-0.8); Eosinophils % (auto) 0.1 % (0.0-7.0); Hematocrit 47.1 % (41.0-53.0); Hemoglobin 16.2 g/dL (13.5-17.5); Lymphocytes # (auto) 1.2 10 ^3/uL (0.4-5.4); Lymphocytes % (auto) 7.2 % (10.0-50.0); Mean Corpuscular Hemoglobin 32.5 pg (28.0-32.0); Mean Corpuscular Hgb Conc. 34.3 g/dL (32.0-36.0); Mean Corpuscular Volume 94.8 fL (80.0-100.0); Monocytes # (auto) 1.2 10 ^3/uL (0-1.3); Monocytes % (auto) 7.1 % (0.0-12.0); Neutrophils # (auto) 14.6 10 ^3/uL (1.6-8.6); Neutrophils % (auto) 85.5 % (37.0-80.0); Platelet Count (auto) 292 10^3/uL (140-450); Red Blood Cells 4.97 10^6/uL (4.5-5.90); Red Cell Distribution Width 15.2 % (11.8-14.3); White Blood Cell 17.1 10^3/uL (4.4-10.8)
[2024-08-19 06:01] LABS: Chloride 92 mmol/L (98-107); Potassium 3.3 mmol/L (3.5-5.1); Sodium 129 mmol/L (136-145)
[2024-08-19 06:02] LABS: Anion Gap 6 (5-15); Calcium 9.6 mg/dL (8.7-10.4); Carbon Dioxide 31 mmol/L (20-31)
[2024-08-19 06:07] LABS: BUN/Creatinine Ratio 20.9 (10.0-20.0); Blood Urea Nitrogen 31 mg/dL (9-23)
[2024-08-19 06:08] LABS: Magnesium 2.1 mg/dL (1.6-2.6)
[2024-08-19 06:09] LABS: Glucose 214 mg/dL (74-106)
[2024-08-19 06:10] LABS: Phosphorus 2.7 mg/dL (2.4-5.1)
[2024-08-19] MEDS: INSULIN LISPRO (HUMAN) 100 UNITS/ML ML SC SCH (06:43)
[2024-08-19] MEDS: POTASSIUM CHL 20 Meq TABLET PO ONE (07:08)
[2024-08-19] MEDS: cefTRIAXone 1GM/50ML D5W 50 ML IV SCH (09:55)
[2024-08-19] MEDS ORDERED: DEXTROSE (50%) 50ML SYRG IV PRN (10:15)
[2024-08-19] MEDS: INSULIN LANTUS (GLARGINE) 1 /0.01ml (100units/ml) SC SCH (11:15)
[2024-08-19] MEDS: ACCU-CHEK COMFORT CURVE STRIP VI SCH (12:13)
[2024-08-19] MEDS: InsuLIN REG 1unit/0.01ml Soln (100units/ml) SC SCH (13:23)
[2024-08-19] MEDS: ACETAMINOPHEN 500 MG TAB PO PRN (16:34)
[2024-08-20] VITALS (12 sets, daily range): BP systolic 97–132; BP diastolic 59–81; PULSE 82–101; RESP 16–18; TEMP 97–97.7; O2SAT 93–100
[2024-08-20 05:27] LABS: Basophils # (auto) 0 10 ^3/uL (0-0.2); Basophils % (auto) 0.1 % (0.0-2.0); Eosinophils # (auto) 0 10 ^3/uL (0-0.8); Eosinophils % (auto) 0.5 % (0.0-7.0); Hematocrit 45.2 % (41.0-53.0); Hemoglobin 15.3 g/dL (13.5-17.5); Lymphocytes % (auto) 21.3 % (10.0-50.0); Mean Corpuscular Hemoglobin 32.1 pg (28.0-32.0); Mean Corpuscular Hgb Conc. 33.9 g/dL (32.0-36.0); Mean Corpuscular Volume 94.5 fL (80.0-100.0); Monocytes # (auto) 0.8 10 ^3/uL (0-1.3); Neutrophils # (auto) 6.4 10 ^3/uL (1.6-8.6); Neutrophils % (auto) 69.1 % (37.0-80.0); Platelet Count (auto) 232 10^3/uL (140-450); Red Blood Cells 4.79 10^6/uL (4.5-5.90); Red Cell Distribution Width 15.5 % (11.8-14.3); White Blood Cell 9.2 10^3/uL (4.4-10.8)
[2024-08-20 05:32] LABS: Rapid Influenza A Negative (Negative); Rapid Influenza B Negative (Negative)
[2024-08-20 05:51] LABS: Anion Gap 7 (5-15); Carbon Dioxide 31 mmol/L (20-31); Chloride 92 mmol/L (98-107); Potassium 3.1 mmol/L (3.5-5.1); Sodium 130 mmol/L (136-145)
[2024-08-20 05:52] LABS: Calcium 9.2 mg/dL (8.7-10.4)
[2024-08-20 05:57] LABS: BUN/Creatinine Ratio 26.8 (10.0-20.0); Blood Urea Nitrogen 40 mg/dL (9-23); Glucose 115 mg/dL (74-106)
[2024-08-20] MEDS: DOCUSATE SOD 100 MG CAP PO ONE (06:11)
[2024-08-20] MEDS: DOCUSATE SOD 100 MG CAP PO PRN (06:32)
[2024-08-20] MEDS: POTASSIUM CHL 20 Meq TABLET PO ONE (09:34)
[2024-08-20] MEDS: HYDROcodone-ACET 5/325MG TAB PO PRN (12:36)
[2024-08-20] MEDS: FUROSEMIDE 40 MG/4 ML VIAL IV SCH (12:43)
== END 2024-08-20 16:40 | disposition home or self-care (01) | DRG 720 ==
LOC: ER 23:28 → TELE 08-18 04:59 → TELE-EAST 08-19 03:54
PROVIDERS: ADMIT Internal Medicine; ATTEND Emergency Medicine
DX: A41.50 Gram-negative sepsis, unspecified (principal); J96.21 Acute and chronic respiratory failure with hypoxia; E11.00 Type 2 diabetes mellitus with hyperosmolarity without nonketotic hyperglycemic-hyperosmolar coma (NKHHC); I50.33 Acute on chronic diastolic (congestive) heart failure; J15.69 Pneumonia due to other Gram-negative bacteria; J15.9 Unspecified bacterial pneumonia; R16.0 Hepatomegaly, not elsewhere classified; I11.0 Hypertensive heart disease with heart failure; K76.0 Fatty (change of) liver, not elsewhere classified; J44.1 Chronic obstructive pulmonary disease with (acute) exacerbation; Z99.81 Dependence on supplemental oxygen; M10.9 Gout, unspecified; F17.210 Nicotine dependence, cigarettes, uncomplicated; I25.10 Atherosclerotic heart disease of native coronary artery without angina pectoris; E78.5 Hyperlipidemia, unspecified; F10.20 Alcohol dependence, uncomplicated; Y90.9 Presence of alcohol in blood, level not specified; G89.29 Other chronic pain; G47.33 Obstructive sleep apnea (adult) (pediatric); E87.6 Hypokalemia; Z20.822 Contact with and (suspected) exposure to COVID-19; N40.0 Benign prostatic hyperplasia without lower urinary tract symptoms; M54.9 Dorsalgia, unspecified; E66.01 Morbid (severe) obesity due to excess calories; Z79.4 Long term (current) use of insulin; Z68.39 Body mass index [BMI] 39.0-39.9, adult
CPT/HCPCS: 36415; 70450; 71250; 76705; 80048; 80053; 80307; 80320; 81001; 82010; 82306; 82570; 82607; 82746; 82962; 83036; 83735; 83880; 83930; 83935; 84100; 84156; 84300; 84439; 84443; 84481; 84484; 85007; 85025; 85027; 85379; 85610; 85730; 87426; 87804; 93005; 94640; 99291; G0378; J1815

== ENCOUNTER 2024-10-15 09:43 | Emergency (ER) | payer MEDICAID, OTHER ==
[~2024-10-15] VITALS: Ht 172.7 cm; Wt 123.4 kg
[2024-10-15 09:43] VITALS: BP 148/81; RESP 18
[2024-10-15 10:01] VITALS: PULSE 97
[2024-10-15 10:10] VITALS: O2SAT 90
--- NOTE | 2024-10-15 10:23 | ED.PDOC ---
SOB-HPI HPI Comments 54Y M with PMHx DM, HTN, HLD, CHF, COPD, and gout presents to ED for chief complaint SOB x4days. Additional symptoms include fatigue, bilateral lower extremity swelling [id number], and upper lip swelling x4days. Pt is currently taking Lasix but it has not helped to alleviate the symptoms. Pt uses 2L/min O2 while at home. Pt is currently on 3L/min of O2 in ER. No known allergies. Chief Complaint: Shortness of Breath Time Seen by MD: 10:14 Primary Care Provider: UNKNOWN Reviewed notes: Medications, Allergies Information Source: Patient Mode of Arrival: Wheelchair Severity: Moderate Timing: Days Duration: Since onset Context: At Rest PE Risk Factors: None History of: COPD, CHF Modifying Factors: Nothing Associated Signs and Symptoms: Leg Swelling, Other Past Medical History PAST MEDICAL HISTORY: CHF, COPD, DM, Gout, High Lipids, HTN Surgical History: Denies all surgeries Family History Family History: Reviewed,noncontributory to illness Social History Smoker: Cigarettes, Less Than 1 Pack/Day Alcohol: Denies ETOH Use Drugs: Marijuana Lives In: Home Constitutional: reports: fatigue; denies: chills, diaphoresis, fever, malaise, sweats, weakness, others EENTM: reports: mouth swelling (upper lip); denies: blurred vision, double vision, ear bleeding, ear discharge, ear drainage, ear pain, ear ringing, eye pain, eye redness, hearing loss, mouth pain, nasal discharge, nose bleeding, nose congestion, nose pain, photophobia, tearing, throat pain, throat swelling, voice changes, others Respiratory: reports: SOB at rest, shortness of breath, SOB with excertion; denies: cough, hemoptysis, orthopnea, stridor, wheezing, others Cardiovascular: reports: edema; denies: chest pain, dizzy spells, diaphoresis, Dyspnea on exertion, irregular heart beat, left arm pain, lightheadedness, palpitations, PND, syncope, others Gastrointestinal: denies: abdomen distended, abdominal pain, blood streaked bowels, constipated, diarrhea, dysphagia, difficulty swallowing, hematemesis, melena, nausea, poor appetite, poor fluid intake, rectal bleeding, rectal pain, vomiting, others Genitourinary: denies: burning, dysuria, flank pain, frequency, hematuria, inc ontinence, penile discharge, penile sore, pain, testicle pain, testicle swelling, urgency, others Neurological: denies: dizziness, fainting, headache, left sided numbness, left sided weakness, numbness, paresthesia, pre-existing deficit, right sided numbness, right sided weakness, seizure, speech problems, tingling, tremors, weakness, others Musculoskeletal: denies: back pain, gout, joint pain, joint swelling, muscle pain, muscle stiffness, neck pain, others Integumetry: denies: bruises, change in color, change in hair/nails, dryness, laceration, lesions, lumps, rash, wounds, others Allergic/Immunocompromised: denies: Difficulty Healing, Frequent Infections, Hives, Itching, others Hematologic/Lymphatic: denies: anemia, blood clots, easy bleeding, easy bruising, swollen glands, others Endocrine: denies: excessive hunger, excessive sweating, excessive thirst, excessive urination, flushing, intolerance to cold, intolerance to heat, unexplained weight gain, unexplained weight loss, others Psychiatric: denies: anxiety, bipolar disorder, depression, hopeless, panic disorder, schizophrenia, sleepless, suicidal, others All Other Systems: Reviewed and Negative Physical Exam General Appearance: No Apparent Distress, Normal HEENT: Normal ENT Inspection, Pharynx Normal, TMs Normal Neck: Full Range of Motion, Non-Tender, Normal, Normal Inspection Respiratory: Chest Non-Tender, Lungs Clear, No Accessory Muscle Use, No Respiratory Distress, Normal Breath Sounds Cardiovascular: No Edema, No JVD, No Murmur, No Gallop, Normal Peripheral Pulses, Regular Rate/Rhythm Breast Exam: Deferred Gastrointestinal: No Organomegaly, Non Tender, No Pulsatile Mass, Normal Bowel Sounds, Soft Genitalia: Deferred Pelvic: Deferred Rectal: Deferred Extremities: No calf tenderness, Normal capillary refill, Normal inspection, Normal range of motion, Non-tender, No pedal edema Musculoskeletal : Apperance: Normal Neurologic: Alert, 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 Was a procedure done?: No Differential Dx Differential Diagnosis: CHF, COPD X-Ray, Labs, Meds, VS Vital Signs Date Time Temp Pulse Resp B/P (MAP) Pulse Ox O2 Delivery O2 Flow Rate FiO2 10/15/24 10:10 90 Nasal Cannula* 3 32 10/15/24 10:01 97 10/15/24 09:43 98.4 104 18 148/81 (103) 86 Lab Test 10/15/24 11:08 10/15/24 10:21 Range/Units Troponin I High Sensitivity 27 27 </=54 ng/L White Blood Count 11.4 H 4.4-10.8 10^3/uL Red Blood Count 5.03 4.5-5.90 10^6/uL Hemoglobin 15.1 13.5-17.5 g/dL Hematocrit 46.3 41.0-53.0 % Mean Corpuscular Volume 92.0 80.0-100.0 fL Mean Corpuscular Hemoglobin 29.9 28.0-32.0 pg Mean Corpuscular Hemoglobin Concent 32.5 32.0-36.0 g/dL Red Cell Distribution Width 16.7 H 11.8-14.3 % Platelet Count 428 140-450 10^3/uL Mean Platelet Volume 7.2 6.9-10.8 fL Neutrophils (%) (Auto) 75.2 37.0-80.0 % Lymphocytes (%) (Auto) 17.3 10.0-50.0 % Monocytes (%) (Auto) 6.3 0.0-12.0 % Eosinophils (%) (Auto) 0.4 0.0-7.0 % Basophils (%) (Auto) 0.8 0.0-2.0 % Neutrophils # (Auto) 8.6 1.6-8.6 10 ^3/uL Lymphocytes # (Auto) 2.0 0.4-5.4 10 ^3/uL Monocytes # (Auto) 0.7 0-1.3 10 ^3/uL Eosinophils # (Auto) 0 0-0.8 10 ^3/uL Basophils # (Auto) 0.1 0-0.2 10 ^3/uL Nucleated Red Blood Cells 0.0 % Sodium Level 138 136-145 mmol/L Potassium Level 3.4 L 3.5-5.1 mmol/L Chloride Level 103 98-107 mmol/L Carbon Dioxide Level 26 20-31 mmol/L Anion Gap 9 5-15 Blood Urea Nitrogen 13 9-23 mg/dL Creatinine 0.88 0.700-1.30 mg/dL Glomerular Filtration Rate Calc 103 >90 mL/min BUN/Creatinine Ratio 14.8 10.0-20.0 Serum Glucose 185 H 74-106 mg/dL Calcium Level 9.8 8.7-10.4 mg/dL Total Bilirubin 0.2 0.2-1.0 mg/dL Aspartate Amino Transferase (AST) 33 13-40 U/L Alanine Aminotransferase (ALT) 19 7-40 U/L Alkaline Phosphatase 101 46-116 U/L B-Type Natriuretic Peptide 74.38 0-100 pg/mL Total Protein 6.6 5.7-8.2 g/dL Albumin 4.2 3.2-4.8 g/dL [place] [id number] Ph: [phone] DIAGNOSTIC IMAGING Diagnostic Imaging Report : [id number] Signed PATIENT: SIMEON TAYLOR ACCT: [id number] UNIT: [id number] : 1970 LOC: ER ROOM / BED: / AGE / SEX: 54 / M ADM STATUS: REG ER SERVICE 1009 ORDERING PHYSICIAN: SARAH REDDY MD PROCEDURE(s): CXR1 - CHEST XRAY 1 VIEW REASON: SOB ORDER NUMBER(s): [id number], ACCESSION NUMBER(s): [id number] XY CHEST XRAY 1 VIEW, HISTORY: SOB COMPARISON: None None TECHNICAL DATA: 1 view of the chest was obtained. FINDINGS: Lines and tubes: None Cardiomediastinal silhouette: normal Pulmonary vasculature: normal Lung expansion: normal Lung airspace: Streaky perihilar opacities. Lung interstitium: normal Pleura: normal Pneumothorax: no Bones: Unremarkable Other: no IMPRESSION: Streaky perihilar opacities could be seen with pneumonia or subsegmental atelectasis.. ATED BY: JSOE F ANTHONY MD DICTATED DATE/TIME: 10/15/241210 SIGNED BY: JOSE F ANTHONY MD SIGNED DATE/TIME: 10/15/241210 CC: Time of 1ST Reevaluation: 10:44 Reevaluation 1ST: Unchanged Patient Education/Counseling: Diagnosis, Treatment Family Education/Counseling: No Family Present Additional Information The following tests were ordered, and results were reviewed by me: CBC, CMP, BNP, Troponin x3, UA, CXR, EKG I reviewed and agreed with the following test results read by other providers: CXR I discussed treatments and results with medical personnel. Departure 1 Departure Time of Disposition: 19:27 (Patient presented with acute shortness of breath concerning for acute on chronic COPD Exacerbation, Pneumonia, ACS, CHF, Pneumothorax. Less likely PE, Dissection. Data: 1. I ordered and reviewed the result of at least 3 labs including a CBC, BMP, and Troponin. 2. I independently interpreted the following tests: Chest X-ray shows patchy opacities which could be a pneumonia .Risk:This patient has a high risk of morbidity due to further diagnostic testing or treatment and may suffer from respiratory or cardiac etio logy . Workup reveals a likely COPD Exacerbation and patient should be admitted for further workup. and possible expert consultation.) Impression: Primary Impression: COPD exacerbation Additional Impressions: Dyspnea Qualified Codes: R06.02 - Shortness of breath Pneumonia Qualified Codes: J18.9 - Pneumonia, unspecified organism Disposition: 07 LEFT AWOL/ELOPED Admit to: Med Surg Condition: Serious Critical Care Note Critical Care Time?: No Stability Stability form required: No Heart Score Heart Score: Heart Score Response (Comments) Value History N/A 0 EKG N/A 0 Age N/A 0 Risk Factors N/A 0 Troponin N/A 0 Total 0 I personally scribed for SARAH REDDY MD ([email or web address] on 10/15/24 at 10:23. Electronically submitted by Dyan Dunaway ([employer]). I personally scribed for SARAH REDDY MD ([facility]) on 10/15/24 at 12:16. Electronically submitted by Dayn Dunaway ([employer]). SARAH REDDY MD Oct 15, 2024 10:23
[2024-10-15 10:38] LABS: Basophils # (auto) 0.1 10 ^3/uL (0-0.2); Basophils % (auto) 0.8 % (0.0-2.0); Eosinophils # (auto) 0 10 ^3/uL (0-0.8); Eosinophils % (auto) 0.4 % (0.0-7.0); Hematocrit 46.3 % (41.0-53.0); Hemoglobin 15.1 g/dL (13.5-17.5); Lymphocytes % (auto) 17.3 % (10.0-50.0); Mean Corpuscular Hemoglobin 29.9 pg (28.0-32.0); Mean Corpuscular Hgb Conc. 32.5 g/dL (32.0-36.0); Monocytes # (auto) 0.7 10 ^3/uL (0-1.3); Monocytes % (auto) 6.3 % (0.0-12.0); Neutrophils # (auto) 8.6 10 ^3/uL (1.6-8.6); Neutrophils % (auto) 75.2 % (37.0-80.0); Platelet Count (auto) 428 10^3/uL (140-450); Red Blood Cells 5.03 10^6/uL (4.5-5.90); Red Cell Distribution Width 16.7 % (11.8-14.3); White Blood Cell 11.4 10^3/uL (4.4-10.8)
[2024-10-15 10:51] LABS: Alanine Aminotransferase 19 U/L (7-40); Albumin 4.2 g/dL (3.2-4.8); Alkaline Phosphatase 101 U/L (46-116); Anion Gap 9 (5-15); Aspartate Aminotransferase 33 U/L (13-40); BUN/Creatinine Ratio 14.8 (10.0-20.0); Blood Urea Nitrogen 13 mg/dL (9-23); Calcium 9.8 mg/dL (8.7-10.4); Carbon Dioxide 26 mmol/L (20-31); Chloride 103 mmol/L (98-107); Sodium 138 mmol/L (136-145); Total Protein 6.6 g/dL (5.7-8.2)
[2024-10-15 10:53] LABS: Bilirubin, Total 0.2 mg/dL (0.2-1.0); Glucose 185 mg/dL (74-106); Potassium 3.4 mmol/L (3.5-5.1)
--- NOTE | 2024-10-15 12:13 | DVH ---
XY CHEST XRAY 1 VIEW, HISTORY: SOB COMPARISON: None None TECHNICAL DATA: 1 view of the chest was obtained. FINDINGS: Lines and tubes: None Cardiomediastinal silhouette: normal Pulmonary vasculature: normal Lung expansion: normal Lung airspace: Streaky perihilar opacities. Lung interstitium: normal Pleura: normal Pneumothorax: no Bones: Unremarkable Other: no IMPRESSION: Streaky perihilar opacities could be seen with pneumonia or subsegmental atelectasis..
[2024-10-15] MEDS ORDERED: CEPH500C PO (19:15)
[2024-10-15] MEDS ORDERED: IBU600T PO (19:15)
--- NOTE | 2024-10-16 09:50 | ECG ---
[facility] Test Date: 2024-10-15 Test Time: 10:01:22 Pat Name: SIMEON TAYLOR Department: ER Room: Gender: M C D Area Supervisor: SHARONA : 1970 Requested By: SARAH REDDY Order Number: [id number] Reading MD: Joshua Kamara Measurements Intervals [place] Rate: 97 P: 55 MO: 164 QRS: 64 QRSD: 104 T: 50 QT: 361 QTc: 459 Interpretive Statements Sinus rhythm Low voltage, precordial leads Baseline wander in lead(s) V1 Electronically Signed On 10-18-2024 16:11:36 PST by Joshua Kamara Please click the below link to view image of tracing.
== END 2024-10-15 11:59 | disposition left against medical advice (07) ==
LOC: MERGE 09:43 → ER 09:43
DX: J44.1 Chronic obstructive pulmonary disease with (acute) exacerbation (principal); R06.00 Dyspnea, unspecified; J18.9 Pneumonia, unspecified organism; I11.0 Hypertensive heart disease with heart failure; I50.89 Other heart failure; E11.9 Type 2 diabetes mellitus without complications; E78.5 Hyperlipidemia, unspecified; F17.210 Nicotine dependence, cigarettes, uncomplicated; F12.90 Cannabis use, unspecified, uncomplicated
CPT/HCPCS: 36415; 71045; 80053; 83880; 84484; 85025; 93005

== ENCOUNTER 2025-01-16 09:13 | Inpatient (IN) | payer MEDICAID ==
[~2025-01-16] VITALS: Ht 177.8 cm; Wt 115.2 kg
[~2025-01-16 09:13] MED LIST changes: +CEPH500C PO; +IBU600T PO
--- NOTE | 2025-01-16 09:18 | ECG ---
[facility] Test Date: 2025-01-16 Test Time: 09:17:03 Pat Name: SIMEON TAYLOR Department: er Room: 0296T Gender: M Leasing Representative: chanda : 1970 Requested By: TOD BABCOCK Order Number: [id number] Reading MD: Joshua Kamara Measurements Intervals [place] Rate: 89 P: 44 NE: 171 QRS: 21 QRSD: 104 T: 33 QT: 356 QTc: 434 Interpretive Statements Sinus rhythm Abnormal R-wave progression, late transition Electronically Signed On 01-20-2025 17:41:23 PST by Joshua Kamara Please click the below link to view image of tracing.
--- NOTE | 2025-01-16 09:26 | ED.PDOC ---
SOB-HPI HPI Comments 54 year old male YUVAL presents to the ED with chief complaint of SOB. Patient reports that he has been experiencing chronic SOB for the past 2 months, however, it has worsened today where he was unable to breath and called 911 for assistance. Patient relays that he has SOB both with and without exertion. Patient states he is on O2 via [place] at home. Patient denies any chest pain, cough, fever, chills, dizziness, or headache. Chief Complaint: Shortness of Breath Time Seen by MD: 09:22 Primary Care Provider: Chris Neal notes: Nurses Notes, Clin Tech Notes, Medications, Allergies Information Source: Patient, Emergency Med Personnel Mode of Arrival: EMS Severity: Moderate Timing: Days Duration: Since onset Context: At Rest PE Risk Factors: None History of: COPD, CHF Prehospital treatment: None Modifying Factors: Nothing Associated Signs and Symptoms: None Past Medical History PAST MEDICAL HISTORY: CHF, COPD, DM, Gout, High Lipids, HTN Surgical History: Denies all surgeries Family History Family History: Reviewed,noncontributory to illness Social History Smoker: Cigarettes, Less Than 1 Pack/Day Alcohol: Occasionally Drugs: Marijuana Lives In: Home Constitutional: denies: chills, diaphoresis, fatigue, fever, malaise, sweats, weakness, others EENTM: denies: blurred vision, double vision, ear bleeding, ear discharge, ear drainage, ear pain, ear ringing, eye pain, eye redness, hearing loss, mouth pain, mouth swelling, nasal discharge, nose bleeding, nose congestion, nose pain, photophobia, tearing, throat pain, throat swelling, voice changes, others Respiratory: reports: SOB at rest, shortness of breath, SOB with excertion; denies: cough, hemoptysis, orthopnea, stridor, wheezing, others Cardiovascular: denies: chest pain, dizzy spells, diaphoresis, Dyspnea on exertion, edema, irregular heart beat, left arm pain, lightheadedness, palp itations, PND, syncope, others Gastrointestinal: denies: abdomen distended, abdominal pain, blood streaked bowels, constipated, diarrhea, dysphagia, difficulty swallowing, hematemesis, melena, nausea, poor appetite, poor fluid intake, rectal bleeding, rectal pain, vomiting, others Genitourinary: denies: burning, dysuria, flank pain, frequency, hematuria, incontinence, penile discharge, penile sore, pain, testicle pain, testicle swelling, urgency, others Neurological: denies: dizziness, fainting, headache, left sided numbness, left sided weakness, numbness, paresthesia, pre-existing deficit, right sided numbness, right sided weakness, seizure, speech problems, tingling, tremors, weakness, others Musculoskeletal: denies: back pain, gout, joint pain, joint swelling, muscle pain, muscle stiffness, neck pain, others Integumetry: denies: bruises, change in color, change in hair/nails, dryness, laceration, lesions, lumps, rash, wounds, others Allergic/Immunocompromised: denies: Difficulty Healing, Frequent Infections, Hives, Itching, others Hematologic/Lymphatic: denies: anemia, blood clots, easy bleeding, easy brui sing, swollen glands, others Endocrine: denies: excessive hunger, excessive sweating, excessive thirst, ex cessive urination, flushing, intolerance to cold, intolerance to heat, unexplained weight gain, unexplained weight loss, others Psychiatric: denies: anxiety, bipolar disorder, depression, hopeless, panic disorder, schizophrenia, sleepless, suicidal, others All Other Systems: Reviewed and Negative Physical Exam General Appearance: Moderate Distress, Normal HEENT: Normal ENT Inspection, PERRL/EOMI Neck: Full Range of Motion, Non-Tender, Normal, Normal Inspection Respiratory: Accessory Muscle Use, Chest Non-Tender, No Accessory Muscle Use, Respiratory Distress, Other (Coarse breath sounds) Cardiovascular: No Edema, No JVD, No Murmur, No Gallop, Normal Peripheral Pulses, Regular Rate/Rhythm Breast Exam: Deferred Gastrointestinal: No Organomegaly, Non Tender, No Pulsatile Mass, Normal Bowel Sounds, Soft Genitalia: Deferred Pelvic: Deferred Rectal: Deferred Extremities: No calf tenderness, Normal capillary refill, Normal inspection, Normal range of motion, Non-tender, Pedal edema Musculoskeletal : Apperance: Normal Neurologic: Alert, motor rebuilder II-XII nml as Tested, No Motor Deficits, Normal Affect, Normal Mood, No Sensory Deficits Cerebellar Function: NOT DONE Reflexes: NOT DONE Skin: Dry, Normal Color, Warm Peripheral Pulses: 3+ Radial (R), 3+ Radial (L) Lymphatic: No Adenopathy Was a procedure done? Was a procedure done?: No Differential Dx Differential Diagnosis: Anxiety, Asthma, Bronchitis, CHF, COPD X-Ray, Labs, Meds, VS Vital Signs Date Time Temp Pulse Resp B/P (MAP) Pulse Ox O2 Delivery O2 Flow Rate FiO2 01/16/25 09:27 97.9 90 22 150/100 (117) 98 97.9 01/16/25 09:17 89 01/16/25 09:13 Nasal Cannula* 2 28 01/16/25 09:13 97.9 90 22 150/100 (117) 98 01/16/25 09:13 Nasal Cannula* 2 28 Patient alert. Complaining of shortness a breath. Vitals stable. Placed on oxygen. History of COPD. Continues to smoke cigarettes. Counseled patient on effects of smoking cigarettes for 15 minutes. History of CHF. Was given Lasix. Blood pressure elevated. Was given clonidine. Reviewed his previous visit. Explained to the patient. Continue monitoring. EKG reviewed does not show any acute changes. Time of 1ST Reevaluation: 10:22 Reevaluation 1ST: Unchanged Patient Education/Counseling: Diagnosis, Treatment Family Education/Counseling: No Family Present Additional Information Previous visit documents reviewed: 10/15/24 for difficulty breathing The following tests were ordered, and results were reviewed by me: CBC, BMP, UA, UDS, BNP, Troponin, EKG, Chest XR Additional Information was gathered from interviewing the following independent historians: EMS I reviewed and agreed with the following test results read by other providers: Chest XR I discussed treatment and results with medical personnel. Departure 1 Departure Time of Disposition: 09:32 Impression: Primary Impression: Diastolic heart failure Qualified Codes: I50.33 - Acute on chronic diastolic (congestive) heart failure Additional Impressions: COPD exacerbation Acute hypoxic respiratory failure Disposition: ADMITTED INPATIENT Admit to: Med Surg Condition: Guarded Critical Care Note Critical Care Time?: Yes (90 min-critical care time only) Critical care comment: Placed on oxygen was given Lasix continue to monitor Stability Stability form required: No Heart Score Heart Score: Heart Score Response (Comments) Value History Slightly Suspicious 0 EKG Normal 0 Age 45-64 1 Risk Factors >3 or Hx ASHD 2 Troponin Normal limit 0 Total 3 I personally scribed for TOD BABCOCK MD ([email or web address]) on 01/16/25 at 09:26. Electronically submitted by Chucho Brand ([email or web address]). TOD BABCOCK MD Jan 16, 2025 09:26
[2025-01-16] MEDS: IPRATROPIUM BROM 0.5 MG/2.5ML INH SOL NEB ONE (09:32)
[2025-01-16] MEDS: ALBUTEROL SULF 2.5 MG/0.5ML(0.5%) NEB SOLN NEB ONE (09:32)
[2025-01-16] MEDS: FUROSEMIDE 40 MG/4 ML VIAL IV ONE (09:43)
[2025-01-16] MEDS: methylPREDNISolone SOD SUCC 125 MG/2 ML VL IV ONE (09:43)
[2025-01-16 09:44] LABS: Basophils # (auto) 0.1 10 ^3/uL (0-0.2); Basophils % (auto) 1.1 % (0.0-2.0); Eosinophils # (auto) 0.1 10 ^3/uL (0-0.8); Eosinophils % (auto) 0.6 % (0.0-7.0); Hematocrit 52.5 % (41.0-53.0); Hemoglobin 17.6 g/dL (13.5-17.5); Lymphocytes % (auto) 26.8 % (10.0-50.0); Mean Corpuscular Hemoglobin 30.5 pg (28.0-32.0); Mean Corpuscular Hgb Conc. 33.6 g/dL (32.0-36.0); Monocytes # (auto) 0.5 10 ^3/uL (0-1.3); Monocytes % (auto) 4.8 % (0.0-12.0); Neutrophils # (auto) 7.6 10 ^3/uL (1.6-8.6); Neutrophils % (auto) 66.7 % (37.0-80.0); Nucleated Red Blood Cells % 0.3 %; Platelet Count (auto) 333 10^3/uL (140-450); Red Blood Cells 5.77 10^6/uL (4.5-5.90); Red Cell Distribution Width 16.8 % (11.8-14.3); White Blood Cell 11.4 10^3/uL (4.4-10.8)
[2025-01-16 10:38] LABS: Chloride 104 mmol/L (98-107); Potassium 3.8 mmol/L (3.5-5.1); Sodium 144 mmol/L (136-145)
[2025-01-16 10:39] LABS: Anion Gap 10 (5-15); Carbon Dioxide 30 mmol/L (20-31)
[2025-01-16 10:45] LABS: BUN/Creatinine Ratio 17.6 (10.0-20.0); Blood Urea Nitrogen 13 mg/dL (9-23); Glucose 79 mg/dL (74-106)
[2025-01-16 10:58] LABS: Calcium 10.6 mg/dL (8.7-10.4)
--- NOTE | 2025-01-16 12:06 | DVH ---
EXAM: XY CHEST PORTABLE HISTORY: sob COMPARISON: XY CHEST PORTABLE on DOS: 08/17/24, XY CHEST PORTABLE on DOS: 06/18/24, XY CHEST XRAY 1 VIEW on DOS: 06/13/24, XY CHEST PORTABLE on DOS: 04/20/24, XY CHEST PORTABLE on DOS: 01/07/24, CT scan of the chest dated 08/19/2024 TECHNIQUE: Portable AP view of the chest was performed. FINDINGS: There are mild irregular infiltrates in the bilateral mid to lower lungs, greater on the ri ght, essentially stable since prior chest imaging. There is mild elevation of the right hemidiaphrag m. There is central interstitial prominence. No pneumothorax. Emphysematous changes are better ruben cterized on prior CT scan. The heart is mildly enlarged. There is ectasia of the central pulmonary ar teries, better characterized on prior CT scan. IMPRESSION: 1. Emphysema and bilateral lung base scarring without evidence of acute intrathoracic process. 2. Cardiomegaly and pulmonary arterial hypertension.
[2025-01-16] MEDS ORDERED: NITROGLYCERIN 0.4 MG SL TAB SL PRN (12:45)
[2025-01-16] MEDS ORDERED: ACETAMINOPHEN 325 MG TAB PO PRN (12:45)
[2025-01-16] MEDS ORDERED: MORPHINE SULFATE INJ 2 MG/ml SYRG IV PRN (12:45)
[2025-01-16] MEDS ORDERED: ONDANSETRON HCL 4 MG/2 ML VIAL IV PRN (12:45)
[2025-01-16] MEDS ORDERED: LISI-275 PO (12:54)
--- NOTE | 2025-01-16 12:56 | DVHHP2 ---
History of Present Illness Reason for Visit: Shortness of breath History of Present Illness Lloyd Morales is a 54-year-old male with past medical history of CHF, COPD with home oxygen, diabetes, hypertension, hyperlipidemia, and gout, who came to the hospital for shortness of breath. Patient states that he has intermittent shortn ess of breath for months. He does have home oxygen that he uses, he also has a nebulizer machine, but is out of the medicine for it. He states he came into the hospital today because his shortness of breath was severe and not improving with his inhaler. Patient also has CHF with bilateral pedal edema +3. He states this is worse then his normal edema. Cardiovascular: CHF, HTN, hyperipidemia Pulmonary: COPD Rheumatologic: Gout Endocrine: Diabetes Past Surgical History: None Family History: None Smoke: 1 pack per day ALCOHOL: occassional Drugs: Marijuana Lives: Alone Domestic Violence: Neg Review of Systems Constitutional: No: Fever, Chills, Sweats, Weakness, Malaise, Other Eyes: No: Pain, Vision change, Conjunctivae inflammation, Eyelid inflammation, Other, Redness ENT: No: Ear pain, Ear discharge, Nose pain, Nose discharge, Nose congestion, Mouth pain, Mouth swelling, Throat pain, Throat swelling, Other Respiratory: Shortness of breath, SOB with excertion, Wheezing; No: Cough, Dry, Hemoptysis, Pleuritic Pain, Sputum, Wheezing, Other Cardiovascular: No: Chest Pain, Palpitations, Orthopnea, Paroxysmal Noc. Dyspnea, Edema, Lt Headedness, Other Gastrointestinal: No: Nausea, Vomiting, Abdominal Pain, Diarrhea, Constipation, Melena, Hematochezia, Other Genitourinary: No Dysuria, No Frequency, No Incontinence, No Hematuria, No Retention, No Other Musculoskeletal: No: other, neck pain, shoulder pain, arm pain, back pain, hand pain, leg pain, foot pain Skin: No: Rash, Lesions, Jaundice, Bruising, Other Neurological: No: Weakness, Numbness, Incoordination, Change in speech, Confusion, Seizures, Other Allergies: Coded Allergies: NO KNOWN ALLERGIES (Unverified , 04/24/18) Exam Vital Signs Vital Signs Date Time Temp Pulse Resp B/P (MAP) Pulse Ox O2 Delivery O2 Flow Rate FiO2 01/16/25 09:43 146/97 01/16/25 09:32 20 97 Nasal Cannula* 3 32 01/16/25 09:27 97.9 90 97.9 General Appearance: Alert, Oriented X3, Cooperative, No acute distress, moderate distress HEENT: Atraumatic, PERRLA Respiratory: Other (Decreased breath sounds,) Cardiovascular: Regular rate, Normal S1, Normal S2, No murmurs, Other (Hypertensive) Abdominal: Normal bowel sounds, Soft, No tenderness Extremities: No clubbing, No cyanosis, Other (bilateral pedal edema + 3, diminished pedal pulses) Skin: No rashes, No breakdown, No significant lesion Neuro: Normal gait, Normal speech, Strength at 5/5 X4 ext Psych/Mental Status: Mental status NL, Mood NL Labs/Xrays Labs Test 01/16/25 09:34 Range/Units White Blood Count 11.4 H 4.4-10.8 10^3/uL Red Blood Count 5.77 4.5-5.90 10^6/uL Hemoglobin 17.6 H 13.5-17.5 g/dL Hematocrit 52.5 41.0-53.0 % Mean Corpuscular Volume 91.0 80.0-100.0 fL Mean Corpuscular Hemoglobin 30.5 28.0-32.0 pg Mean Corpuscular Hemoglobin Concent 33.6 32.0-36.0 g/dL Red Cell Distribution Width 16.8 H 11.8-14.3 % Platelet Count 333 140-450 10^3/uL Mean Platelet Volume 7.1 6.9-10.8 fL Neutrophils (%) (Auto) 66.7 37.0-80.0 % Lymphocytes (%) (Auto) 26.8 10.0-50.0 % Monocytes (%) (Auto) 4.8 0.0-12.0 % Eosinophils (%) (Auto) 0.6 0.0-7.0 % Basophils (%) (Auto) 1.1 0.0-2.0 % Neutrophils # (Auto) 7.6 1.6-8.6 10 ^3/uL Lymphocytes # (Auto) 3.0 0.4-5.4 10 ^3/uL Monocytes # (Auto) 0.5 0-1.3 10 ^3/uL Eosinophils # (Auto) 0.1 0-0.8 10 ^3/uL Basophils # (Auto) 0.1 0-0.2 10 ^3/uL Nucleated Red Blood Cells 0.3 % Sodium Level 144 136-145 mmol/L Potassium Level 3.8 3.5-5.1 mmol/L Chloride Level 104 98-107 mmol/L Carbon Dioxide Level 30 20-31 mmol/L Anion Gap 10 5-15 Blood Urea Nitrogen 13 9-23 mg/dL Creatinine 0.74 0.700-1.30 mg/dL Glomerular Filtration Rate Calc 109 >90 mL/min BUN/Creatinine Ratio 17.6 10.0-20.0 Serum Glucose 79 74-106 mg/dL Calcium Level 10.6 H 8.7-10.4 mg/dL Troponin I High Sensitivity 39 </=54 ng/L B-Type Natriuretic Peptide 72.02 0-100 pg/mL EXAM: XY CHEST PORTABLE IMPRESSION: 1. Emphysema and bilateral lung base scarring without evidence of acute intrathoracic process. 2. Cardiomegaly and pulmonary arterial hypertension. Assessment/Plan Assessment/Plan Assessment: COPD with acute exacerbation, CHF with acute exacerbation, Gout, Diabetes, Hypertension, Hyperlipidemia, Plan: Admit to Tele, Breathing treatments, IV steroids, IV Lasix , Supplemental oxygen as needed, Accu checks Q AC&HS with sliding scale, Home medications reconciled, Plan discussed with: Patient My Orders Orders - JUNO JEFFERY Procedure Category Date Status Time Admit ADMIT 01/16/25 Transmitted 12:42 Code Status CODE 01/16/25 Transmitted 12:42 Sodium Chloride Lock PHA 01/16/25 Transmitted (Saline Lock Ns) 14:00 Hydrocodone-Acet PHA 01/16/25 Transmitted 5/325mg Tab ([place] 12:45 Ondansetron Hcl PHA 01/16/25 Transmitted (Zofran) 12:45 Docusate Sodium PHA 01/16/25 Transmitted Capsule (Colace 12:45 Complete Blood Count LAB 01/17/25 Verified 04:00 Comprehensive LAB 01/17/25 Verified Metabolic Panel 04:00 Cardiac DIET 01/16/25 Verified Diet-2gna,Lofat,Lochol Lunch Condition: Serious MANOJ 01/16/25 Verified 12:42 Acetaminophen Tablet PHA 01/16/25 Verified (Tylenol Tablet) 12:45 Nitroglycerin PHA 01/16/25 Verified Sublingual (Ntrostat 12:45 Morphine Sulfate PHA 01/16/25 Verified Injection 12:45 Stat Ekg For Chest MANOJ 01/16/25 Verified Pain 12:42 Notify Md Of Changes MANOJ 01/16/25 Verified From Base 12:42 House Father For MANOJ 01/16/25 Verified 24 Hours 12:42 Emergency Dysrhythmia MANOJ 01/16/25 Verified Protocol 12:42 Rhythm Strips Once MANOJ 01/16/25 Verified Every Shift 12:42 Oxygen By Nasal RT 01/16/25 Verified Cannula 12:42 Albuterol Medneb PHA 01/16/25 Verified (Ventolin Medneb) 18:00 Ipratropium Medneb PHA 01/16/25 Verified (Atrovent Medneb) 18:00 Allopurinol Tablet PHA 01/17/25 Verified (Zyloprim Tablet) 10:00 Aspirin Enteric PHA 01/17/25 Verified Coated Tablet 10:00 Finasteride Tablet PHA 01/17/25 Verified (Proscar Tablet) 10:00 Tamsulosin PHA 01/16/25 Verified Hydrochloride (Flomax) 18:00 (Nf) Atorvastatin PHA 01/17/25 Verified Calcium (Lipitor) 10:00 (Nf) Cholecalciferol PHA 01/17/25 Verified (Vitamin D3) 10:00 (NF) PHA 01/16/25 Verified [id number]-Gqjld 12:45 (Nf) Glipizide PHA 01/16/25 Verified (Glipizide Xl) 17:00 Date of Service: Jan 16, 2025 Billing Provider: JUNO JEFFERY Common Visit Codes: [id number] INP/OBS CARE (MOD) JUNO JEFFERY Jan 16, 2025 12:56
[2025-01-16 13:00] VITALS: O2SAT 97
[2025-01-16 13:02] VITALS: BP 146/97; PULSE 90; RESP 20; TEMP 97.9; O2SAT 98
[2025-01-16] MEDS ORDERED: DEXTROSE (50%) 50ML SYRG IV PRN (13:45)
[2025-01-16] MEDS: SODIUM CHLOR 0.9% PF (SALINE LOCK) 10ML VIAL/SYR IV SCH (14:00)
[2025-01-16 16:15] LABS: Urine Bacteria None Seen /hpf (None Seen)
[2025-01-16 16:29] LABS: Urine Blood Negative /uL (Negative); Urine Clarity Clear (Clear); Urine Color Light-Yellow (Yellow); Urine Hyaline Cast FEW /lpf (0 - 2); Urine Mucus FEW (None Seen); Urine Protein, UAD Negative (Negative); Urine Specific Gravity 1.013 (1.001-1.035); Urine Squamous Epithelial Cell FEW /hpf (<5); Urine Urobilinogen Normal (Negative); Urine WBC 2 /HPF (0-3); Urine pH 5.5 (5.0-9.0)
[2025-01-16 16:39] LABS: Amphetamine Screen, Urine Neg (NEGATIVE)
[2025-01-16 16:40] LABS: Barbiturate Scree,Urine Neg (NEGATIVE); Benzodiazephine Screen, Urine Neg (NEGATIVE); Cannabinoid Screen, Urine Neg (NEGATIVE); Cocaine Screen, Urine Neg (NEGATIVE); Opiate Scree,Urine Neg (NEGATIVE); Phencyclidine Screen, Urine Neg (NEGATIVE)
[2025-01-16] MEDS: ACCU-CHEK COMFORT CURVE STRIP VI SCH (17:14)
[2025-01-16] MEDS: InsuLIN REG 1unit/0.01ml Soln (100units/ml) SC SCH ×2 (17:20→23:24)
[2025-01-16 18:52] VITALS: PULSE 105; RESP 20; O2SAT 95; O2SAT 98
[2025-01-16 19:02] VITALS: PULSE 100; RESP 20; O2SAT 99
[2025-01-16] MEDS: FUROSEMIDE 20 MG/2 ML VIAL IV SCH (21:26)
[2025-01-16] MEDS: TAMSULOSIN HYDROCHLORIDE 0.4 MG CAP PO SCH (21:26)
[2025-01-16 21:30] VITALS: PULSE 116; RESP 22; O2SAT 94
[2025-01-16 23:00] VITALS: BP 162/89; PULSE 100; RESP 20; TEMP 98.3; O2SAT 94
[2025-01-16] MEDS: methylPREDNISolone SOD SUCC 40 MG/ML VL IV SCH (23:15)
[2025-01-16] MEDS: ATORVASTATIN 20 MG TAB PO SCH (23:16)
[2025-01-17] VITALS (15 sets, daily range): BP systolic 142–165; BP diastolic 86–103; PULSE 81–113; RESP 14–24; TEMP 97.9–98.6; O2SAT 90–98
[2025-01-17] MEDS: cloNIDine HCL 0.1 MG TAB PO ONE (01:11)
[2025-01-17 06:05] LABS: Basophils # (auto) 0 10 ^3/uL (0-0.2); Basophils % (auto) 0.1 % (0.0-2.0); Eosinophils # (auto) 0 10 ^3/uL (0-0.8); Hematocrit 48.4 % (41.0-53.0); Hemoglobin 16.5 g/dL (13.5-17.5); Lymphocytes # (auto) 0.7 10 ^3/uL (0.4-5.4); Lymphocytes % (auto) 5.9 % (10.0-50.0); Mean Corpuscular Hemoglobin 30.4 pg (28.0-32.0); Mean Corpuscular Volume 89.2 fL (80.0-100.0); Monocytes # (auto) 0.4 10 ^3/uL (0-1.3); Monocytes % (auto) 3.5 % (0.0-12.0); Neutrophils # (auto) 10.3 10 ^3/uL (1.6-8.6); Neutrophils % (auto) 90.5 % (37.0-80.0); Nucleated Red Blood Cells % 0.1 %; Platelet Count (auto) 309 10^3/uL (140-450); Red Blood Cells 5.42 10^6/uL (4.5-5.90); Red Cell Distribution Width 16.7 % (11.8-14.3); White Blood Cell 11.4 10^3/uL (4.4-10.8)
[2025-01-17 06:26] LABS: Alanine Aminotransferase 25 U/L (7-40); Albumin 4.8 g/dL (3.2-4.8); Alkaline Phosphatase 101 U/L (46-116); Anion Gap 9 (5-15); Aspartate Aminotransferase 26 U/L (13-40); BUN/Creatinine Ratio 22.6 (10.0-20.0); Bilirubin, Total 0.6 mg/dL (0.2-1.0); Potassium 3.8 mmol/L (3.5-5.1); Sodium 137 mmol/L (136-145); Total Protein 7.2 g/dL (5.7-8.2)
[2025-01-17 06:29] LABS: Blood Urea Nitrogen 24 mg/dL (9-23); Calcium 10.9 mg/dL (8.7-10.4); Carbon Dioxide 31 mmol/L (20-31); Chloride 97 mmol/L (98-107); Glucose 199 mg/dL (74-106)
[2025-01-17] MEDS: IPRATROPIUM BROM 0.5 MG/2.5ML INH SOL NEB SCH (07:21)
[2025-01-17] MEDS: ALBUTEROL SULF 2.5 MG/0.5ML(0.5%) NEB SOLN NEB SCH (07:21)
[2025-01-17] MEDS: ASPirin-EC 81 mg tab PO SCH (09:33)
[2025-01-17] MEDS: ALLOPURINOL 100 MG TAB PO SCH (09:33)
[2025-01-17] MEDS: CHOLECALCIFEROL (VITD3) 1,000UNIT=25mCg TAB PO SCH (09:33)
[2025-01-17] MEDS: FINASTERIDE 5 MG TAB PO SCH (09:33)
[2025-01-17] MEDS: glipiZIDE 5 MG TAB PO SCH (09:37)
[2025-01-17] MEDS: HYDROcodone-ACET 5/325MG TAB PO PRN (14:03)
--- NOTE | 2025-01-17 15:27 | DVHPN2 ---
Subjective Denies any symptoms Reviewed: Care Plan, H&P, Labs, Medications Changes from previous H/P or p: No Changes General: Per HPI Eyes: No Pain, No Vision change, No Conjunctivae inflammation, No Eyelid inflammation, No Other, No Redness ENT: No Ear pain, No Ear discharge, No Nose pain, No Nose discharge, No Nose congestion, No Mouth pain, No Mouth swelling, No Throat pain, No Throat swelling, No Other Cardiovascular: No Chest Pain, No Palpitations, No Orthopnea, No Paroxysmal Noc. Dyspnea, No Edema, No Lt Headedness, No Other Respiratory: No Cough, No Dry; Shortness of breath, SOB with excertion, W heezing; No Hemoptysis, No Pleuritic Pain, No Sputum, No Other Gastrointestinal: No Nausea, No Vomiting, No Abdominal Pain, No Diarrhea, No Constipation, No Melena, No Hematochezia, No Other Genitourinary: No Dysuria, No Frequency, No Incontinence, No Hematuria, No Retention, No Other Musculoskeletal: No other, No neck pain, No shoulder pain, No arm pain, No back pain, No hand pain, No leg pain, No foot pain Skin: No Rash, No Lesions, No Jaundice, No Bruising, No Other Objective Vitals Vital Signs Date Time Temp Pulse Resp B/P (MAP) Pulse Ox O2 Delivery O2 Flow Rate FiO2 01/17/25 14:09 97 18 94 Nasal Cannula* 3 32 01/17/25 11:00 98.0 160/103 (122) 98.0 Exam Patient ambulating around the hospital. Patient was smoking. General Appearance: Alert, Oriented X3, Cooperative, mild distress, Other (Morbidly obese) HEENT: Atraumatic, PERRLA Lungs: Clear to auscultation, Normal air movement Cardiovascular: Normal S1, Normal S2 Abdomen: Normal bowel sounds, Soft, No tenderness, No hepatospenomegaly Genitourinary: No Apparent Abnormalities Neuro: Normal gait, Normal speech Psych/Mental Status: Mental status NL, Mood NL Medications Current Medications Medications Dose Ordered Sig/Isa Route Start Time Stop Time Status Last Admin Dose Admin Sodium Chloride 10 ml Q8HR IV 01/16/25 14:00 01/17/25 13:55 10 ML Acetaminophen/ Hydrocodone Bitart 1 tab Q4HP PRN PO 01/16/25 12:45 01/17/25 14:03 1 TAB Ondansetron HCl 4 mg Q4HP PRN IV 01/16/25 12:45 Docusate Sodium 100 mg BIDPRN PRN PO 01/16/25 12:45 Acetaminophen 650 mg Q6HP PRN PO 01/16/25 12:45 Nitroglycerin 0.4 mg Q5MINP PRN SL 01/16/25 12:45 Morphine Sulfate 2 mg Q30M PRN IV 01/16/25 12:45 Albuterol 2.5 mg Q6HWA NEB 01/16/25 18:00 01/17/25 11:36 2.5 MG Ipratropium [place] 0.5 mg Q6HWA NEB 01/16/25 18:00 01/17/25 11:36 0.5 MG Allopurinol 100 mg DAILY PO 01/17/25 10:00 01/17/25 09:33 100 MG Aspirin 81 mg DAILY PO 01/17/25 10:00 01/17/25 09:33 81 MG Finasteride 5 mg DAILY PO 01/17/25 10:00 01/17/25 09:33 5 MG Tamsulosin HCl 0.4 mg QPM PO 01/16/25 18:00 01/16/25 21:26 0.4 MG Atorvastatin Calcium 10 mg HS PO 01/16/25 22:00 01/16/25 23:16 10 MG Cholecalciferol 2,000 unit DAILY PO 01/17/25 10:00 01/17/25 09:33 2,000 UNIT Patient Own Medication 1 aer DAILY IN 01/17/25 10:00 Glipizide 10 mg DAILY@BREAKFAST PO 01/17/25 08:00 01/17/25 09:37 10 MG Furosemide 20 mg BIDD IV 01/16/25 18:00 01/17/25 05:02 20 MG Methylprednisolone Sodium Succinate 40 mg BID IV 01/16/25 22:00 01/17/25 09:34 40 MG Diagnostic Test (Pha) 1 strip ACHS 01/16/25 17:00 01/17/25 11:30 1 STRIP Insulin Human Regular HS SC 01/16/25 22:00 01/16/25 23:24 6 UNITS Insulin Human Regular AC SC 01/16/25 17:00 01/17/25 12:33 6 UNITS Dextrose 50 ml UD PRN IV 01/16/25 13:45 Laboratory Results Laboratory Tests 01/17/25 04:51 Chemistry Test 01/17/25 04:51 Albumin 4.8 g/dL (3.2-4.8) Calcium Level 10.9 mg/dL (8.7-10.4) H Total Protein 7.2 g/dL (5.7-8.2) LFT Test 01/17/25 04:51 Alanine Aminotransferase (ALT) 25 U/L (7-40) Alkaline Phosphatase 101 U/L (46-116) Aspartate Amino Transferase (AST) 26 U/L (13-40) Total Bilirubin 0.6 mg/dL (0.2-1.0) Urinalysis Test 01/16/25 15:04 Urine Color Light-yellow (Yellow) Urine Clarity Clear (Clear) Urine pH 5.5 (5.0-9.0) Urine Specific [place] 1.013 (1.001-1.035) Urine Protein Negative (Negative) Urine Ketones 1+ (Negative) H Urine Blood Negative /uL (Negative) Urine Nitrite Negative (Negative) Urine Bilirubin Negative (Negative) Urine Urobilinogen Normal mg/dL (Negative) Urine Leukocyte Esterase Negative /uL (Negative) Urine RBC <1 /hpf (0 - 3) Urine Microscopic WBC 2 /HPF (0-3) Urine Squamous Epithelial Cells Few /hpf (<5) Urine Bacteria None seen /hpf (None Seen) Urine Hyaline Casts Few /lpf (0 - 2) Urine Mucus Few (None Seen) Urine Glucose Normal mg/dL (Normal) Labs and/or images reviewed: Labs reviewed by me, Image(s) reviewed by me Assessment/Plan Assessment/Plan Impression: -acute on chronic hypoxic respiratory failure -COPD with exacerbation -leukocytosis, rule out sepsis -obesity -nicotine dependence -dyslipidemia -primary hypertension Plan: -continue bronchodilators -add Pulmicort -continue Solu-Medrol -smoking cessation education: 10 minutes spent with the patient -continue empiric antibiotic therapy -continue antihypertensives -repeat labs, chest x-ray in a.m. Total time spent with patient discussing and formulating plan of care: 35 minutes. This medical document was created using an electronic medical record system with [employer] dictation system. Although this document has been carefully reviewed, there may still be some phonetic and typographical errors. These areas are purely typographical due to imperfections of the software programs, and do not reflect any compromise in the patient's medical care. Plan discussed with: Patient, Other (RN) My Orders Orders - STEPHANY ALEJANDRE NP Procedure Category Date Status Time Budesonide PHA 01/17/25 Transmitted (Inhalation) 22:00 Basic Metabolic Panel LAB 01/18/25 Verified 04:00 Magnesium LAB 01/18/25 Verified 04:00 Chest Portable XY 01/18/25 Verified 04:00 Complete Blood Count LAB 01/18/25 Verified 04:00 Date of Service: Jan 17, 2025 Billing Provider: STEPHANY ALEJANDRE NP Common Visit Codes: [id number] INP/OBS CARE(HIGH) STEPHANY ALEJANDRE NP Jan 17, 2025 15:27
[2025-01-17] MEDS ORDERED: CARV6.2551 PO (17:56)
[2025-01-17] MEDS: BUDESONIDE (INHALATION) 0.5 MG/2 ML NEB NEB SCH (19:03)
[2025-01-17] MEDS: NICOTINE 21MG/24 HR TOPICAL PATCH TD ONE (22:21)
[2025-01-17] MEDS: CARVEDILOL 3.125 MG TAB PO SCH (22:22)
[2025-01-17] MEDS: LISINOPRIL 5 MG TAB PO ONE (22:23)
[2025-01-18] VITALS (14 sets, daily range): BP systolic 145–166; BP diastolic 61–104; PULSE 60–79; RESP 18–20; TEMP 97.3–97.9; O2SAT 93–98
[2025-01-18 06:51] LABS: Basophils # (auto) 0 10 ^3/uL (0-0.2); Basophils % (auto) 0.1 % (0.0-2.0); Eosinophils # (auto) 0 10 ^3/uL (0-0.8); Hematocrit 47.2 % (41.0-53.0); Hemoglobin 15.9 g/dL (13.5-17.5); Lymphocytes # (auto) 0.8 10 ^3/uL (0.4-5.4); Lymphocytes % (auto) 4.8 % (10.0-50.0); Mean Corpuscular Hemoglobin 30.8 pg (28.0-32.0); Mean Corpuscular Hgb Conc. 33.8 g/dL (32.0-36.0); Mean Corpuscular Volume 91.1 fL (80.0-100.0); Monocytes # (auto) 0.4 10 ^3/uL (0-1.3); Monocytes % (auto) 2.6 % (0.0-12.0); Neutrophils # (auto) 14.8 10 ^3/uL (1.6-8.6); Neutrophils % (auto) 92.5 % (37.0-80.0); Platelet Count (auto) 259 10^3/uL (140-450); Red Blood Cells 5.18 10^6/uL (4.5-5.90)
[2025-01-18 07:03] LABS: Calcium 10.1 mg/dL (8.7-10.4); Chloride 100 mmol/L (98-107); Potassium 3.9 mmol/L (3.5-5.1); Sodium 139 mmol/L (136-145)
[2025-01-18 07:04] LABS: Anion Gap 6 (5-15)
[2025-01-18 07:07] LABS: Carbon Dioxide 33 mmol/L (20-31)
[2025-01-18 07:09] LABS: BUN/Creatinine Ratio 20.2 (10.0-20.0); Blood Urea Nitrogen 20 mg/dL (9-23); Magnesium 1.7 mg/dL (1.6-2.6)
[2025-01-18 07:15] LABS: Glucose 192 mg/dL (74-106)
--- NOTE | 2025-01-18 07:20 | DVH ---
EXAM: XR Chest, 1 View CLINICAL INDICATION: copd TECHNIQUE: Frontal view of the chest. COMPARISON: XY CHEST PORTABLE on DOS: 01/16/25, XY CHEST PORTABLE on DOS: 08/17/24, XY CHEST PORTABLE on DOS: 06/18/24, XY CHEST XRAY 1 VIEW on DOS: 06/13/24, XY CHEST PORTABLE on DOS: 04/20/24 FINDINGS: LUNGS AND PLEURAL SPACES: See below. HEART: Cardiomegaly with mild congestion. MEDIASTINUM: Unremarkable. Normal mediastinal contour. BONES/JOINTS: Unremarkable. No acute fracture. OTHER FINDINGS: . IMPRESSION: Cardiomegaly with mild congestion.
[2025-01-18] MEDS: LISINOPRIL 5 MG TAB PO SCH (08:35)
--- NOTE | 2025-01-18 12:18 | DVHPN2 ---
Subjective Denies any symptoms Reviewed: Care Plan, H&P, Labs, Medications Changes from previous H/P or p: No Changes General: Per HPI Eyes: No Pain, No Vision change, No Conjunctivae inflammation, No Eyelid inflammation, No Other, No Redness ENT: No Ear pain, No Ear discharge, No Nose pain, No Nose discharge, No Nose congestion, No Mouth pain, No Mouth swelling, No Throat pain, No Throat swelling, No Other Cardiovascular: No Chest Pain, No Palpitations, No Orthopnea, No Paroxysmal Noc. Dyspnea, No Edema, No Lt Headedness, No Other Respiratory: No Cough, No Dry; Shortness of breath, SOB with excertion, W heezing; No Hemoptysis, No Pleuritic Pain, No Sputum, No Other Gastrointestinal: No Nausea, No Vomiting, No Abdominal Pain, No Diarrhea, No Constipation, No Melena, No Hematochezia, No Other Genitourinary: No Dysuria, No Frequency, No Incontinence, No Hematuria, No Retention, No Other Musculoskeletal: No other, No neck pain, No shoulder pain, No arm pain, No back pain, No hand pain, No leg pain, No foot pain Skin: No Rash, No Lesions, No Jaundice, No Bruising, No Other Objective Vitals Vital Signs Date Time Temp Pulse Resp B/P (MAP) Pulse Ox O2 Delivery O2 Flow Rate FiO2 01/18/25 11:55 69 20 95 01/18/25 11:49 Nasal Cannula 3.0 01/18/25 11:49 32 01/18/25 09:35 145/85 01/18/25 09:00 97.6 97.6 Intake/Output Intake and Output 01/18/25 07:00 Intake Total 3600 ml Balance 3600 ml Intake Oral 3600 ml # Voids 17 Exam Patient ambulating around the hospital. Patient was smoking. General Appearance: Alert, Oriented X3, Cooperative, mild distress, Other (Morbidly obese) HEENT: Atraumatic, PERRLA Lungs: Clear to auscultation, Normal air movement Cardiovascular: Normal S1, Normal S2 Abdomen: Normal bowel sounds, Soft, No tenderness, No hepatospenomegaly Genitourinary: No Apparent Abnormalities Neuro: Normal gait, Normal speech Skin: Dry, Intact Psych/Mental Status: Mental status NL, Mood NL Medications Current Medications Medications Dose Ordered Sig/Isa Route Start Time Stop Time Status Last Admin Dose Admin Sodium Chloride 10 ml Q8HR IV 01/16/25 14:00 01/18/25 06:02 10 ML Acetaminophen/ Hydrocodone Bitart 1 tab Q4HP PRN PO 01/16/25 12:45 01/18/25 10:54 1 TAB Ondansetron HCl 4 mg Q4HP PRN IV 01/16/25 12:45 Docusate Sodium 100 mg BIDPRN PRN PO 01/16/25 12:45 Acetaminophen 650 mg Q6HP PRN PO 01/16/25 12:45 Nitroglycerin 0.4 mg Q5MINP PRN SL 01/16/25 12:45 Morphine Sulfate 2 mg Q30M PRN IV 01/16/25 12:45 Albuterol 2.5 mg Q6HWA NEB 01/16/25 18:00 01/18/25 11:48 2.5 MG Ipratropium [place] 0.5 mg Q6HWA NEB 01/16/25 18:00 01/18/25 11:49 0.5 MG Allopurinol 100 mg DAILY PO 01/17/25 10:00 01/18/25 08:36 100 MG Aspirin 81 mg DAILY PO 01/17/25 10:00 01/18/25 08:36 81 MG Finasteride 5 mg DAILY PO 01/17/25 10:00 01/18/25 08:36 5 MG Tamsulosin HCl 0.4 mg QPM PO 01/16/25 18:00 01/17/25 18:14 0.4 MG Atorvastatin Calcium 10 mg HS PO 01/16/25 22:00 01/17/25 22:22 10 MG Cholecalciferol 2,000 unit DAILY PO 01/17/25 10:00 01/18/25 08:35 2,000 UNIT Patient Own Medication 1 aer DAILY IN 01/17/25 10:00 Glipizide 10 mg DAILY@BREAKFAST PO 01/17/25 08:00 01/18/25 08:36 10 MG Furosemide 20 mg BIDD IV 01/16/25 18:00 01/18/25 06:02 20 MG Methylprednisolone Sodium Succinate 40 mg BID IV 01/16/25 22:00 01/18/25 08:37 40 MG Diagnostic Test (Pha) 1 strip ACHS 01/16/25 17:00 01/18/25 11:20 1 STRIP Insulin Human Regular HS SC 01/16/25 22:00 01/17/25 22:24 4 UNITS Insulin Human Regular AC SC 01/16/25 17:00 01/18/25 11:19 12 UNITS Dextrose 50 ml UD PRN IV 01/16/25 13:45 Budesonide 0.5 mg BID NEB 01/17/25 22:00 01/18/25 06:53 0.5 MG Nicotine 1 patch Q24H TD 01/18/25 16:00 Carvedilol 6.25 mg BID PO 01/17/25 22:00 01/18/25 08:35 6.25 MG Lisinopril 20 mg DAILY PO 01/19/25 10:00 UNV Laboratory Results Laboratory Tests 01/18/25 05:47 Chemistry Test 01/18/25 05:47 Calcium Level 10.1 mg/dL (8.7-10.4) Magnesium Level 1.7 mg/dL (1.6-2.6) Urinalysis Test 01/16/25 15:04 Urine Color Light-yellow (Yellow) Urine Clarity Clear (Clear) Urine pH 5.5 (5.0-9.0) Urine Specific [place] 1.013 (1.001-1.035) Urine Protein Negative (Negative) Urine Ketones 1+ (Negative) H Urine Blood Negative /uL (Negative) Urine Nitrite Negative (Negative) Urine Bilirubin Negative (Negative) Urine Urobilinogen Normal mg/dL (Negative) Urine Leukocyte Esterase Negative /uL (Negative) Urine RBC <1 /hpf (0 - 3) Urine Microscopic WBC 2 /HPF (0-3) Urine Squamous Epithelial Cells Few /hpf (<5) Urine Bacteria None seen /hpf (None Seen) Urine Hyaline Casts Few /lpf (0 - 2) Urine Mucus Few (None Seen) Urine Glucose Normal mg/dL (Normal) Labs and/or images reviewed: Labs reviewed by me, Image(s) reviewed by me Assessment/Plan Assessment/Plan Impression: -acute on chronic hypoxic respiratory failure -COPD with exacerbation -leukocytosis, rule out sepsis -obesity -nicotine dependence -dyslipidemia -primary hypertension Plan: Events: Patient was states that he will stop smoking because he was out of cigarettes. Nicotine patch ordered. -continue bronchodilators, Pulmicort -pain management: Increase [place]. Continue IV diuresis with Lasix 20 mg b.i.d. given persistent plus two pedal edema to bilateral lower extremities. Chest x-ray with pulmonary vascular congestion. -continue Solu-Medrol -smoking cessation education: 10 minutes spent with the patient -continue empiric antibiotic therapy -continue antihypertensives -repeat labs, chest x-ray in a.m. Total time spent with patient discussing and formulating plan of care: 35 minutes. This medical document was created using an electronic medical record system with [employer] dictation system. Although this document has been carefully reviewed, there may still be some phonetic and typographical errors. These areas are purely typographical due to imperfections of the software programs, and do not reflect any compromise in the patient's medical care. Plan discussed with: Patient, Other (RN) My Orders Orders - STEPHANY ALEJANDRE NP Procedure Category Date Status Time Budesonide PHA 01/17/25 In Process (Inhalation) 22:00 Chest Portable XY 01/18/25 Resulted 04:00 Lisinopril Tablet PHA 01/19/25 Logged (Zestril Tablet) 10:00 Hydrocodone-Acet PHA 01/18/25 Verified 7.5/325mg Tab ([place] 12:30 Date of Service: Jan 18, 2025 Billing Provider: STEPHANY ALEJANDRE NP Common Visit Codes: [id number] INP/OBS CARE(HIGH) STEPHANY ALEJANDRE NP Jan 18, 2025 12:18
[2025-01-18] MEDS: NICOTINE 21MG/24 HR TOPICAL PATCH TD SCH (16:18)
[2025-01-18] MEDS: HYDROcodone-ACET 7.5/325MG TAB PO PRN (16:19)
[2025-01-19] VITALS (15 sets, daily range): BP systolic 145–171; BP diastolic 92–109; PULSE 62–89; RESP 18–20; TEMP 97.4–98.3; O2SAT 90–96
[2025-01-19] MEDS: hydrALAZINE HCL 20 MG/ML VL IV PRN (05:24)
--- NOTE | 2025-01-19 05:47 | DVH ---
EXAM: XR Chest, 1 View CLINICAL INDICATION: chf TECHNIQUE: Frontal view of the chest. COMPARISON: XY CHEST PORTABLE on DOS: 01/18/25, XY CHEST PORTABLE on DOS: 01/16/25, XY CHEST PORTABLE o n DOS: 08/17/24, XY CHEST PORTABLE on DOS: 06/18/24, XY CHEST XRAY 1 VIEW on DOS: 06/13/24 FINDINGS: LUNGS AND PLEURAL SPACES: Mild congestive heart failure. No consolidation. No pneumothorax. HEART: Unremarkable. No cardiomegaly. MEDIASTINUM: Unremarkable. Normal mediastinal contour. BONES/JOINTS: Unremarkable. No acute fracture. OTHER FINDINGS: . IMPRESSION: Mild congestive heart failure.
[2025-01-19] MEDS: LISINOPRIL 20 MG TAB PO SCH (09:17)
--- NOTE | 2025-01-19 14:16 | DVHPN2 ---
Subjective Denies any symptoms Reviewed: Care Plan, H&P, Labs, Medications Changes from previous H/P or p: No Changes General: Per HPI Eyes: No Pain, No Vision change, No Conjunctivae inflammation, No Eyelid inflammation, No Other, No Redness ENT: No Ear pain, No Ear discharge, No Nose pain, No Nose discharge, No Nose congestion, No Mouth pain, No Mouth swelling, No Throat pain, No Throat swelling, No Other Cardiovascular: No Chest Pain, No Palpitations, No Orthopnea, No Paroxysmal Noc. Dyspnea, No Edema, No Lt Headedness, No Other Respiratory: No Cough, No Dry; Shortness of breath, SOB with excertion, W heezing; No Hemoptysis, No Pleuritic Pain, No Sputum, No Other Gastrointestinal: No Nausea, No Vomiting, No Abdominal Pain, No Diarrhea, No Constipation, No Melena, No Hematochezia, No Other Genitourinary: No Dysuria, No Frequency, No Incontinence, No Hematuria, No Retention, No Other Musculoskeletal: No other, No neck pain, No shoulder pain, No arm pain, No back pain, No hand pain, No leg pain, No foot pain Skin: No Rash, No Lesions, No Jaundice, No Bruising, No Other Objective Vitals Vital Signs Date Time Temp Pulse Resp B/P (MAP) Pulse Ox O2 Delivery O2 Flow Rate FiO2 01/19/25 12:50 97.5 65 18 150/105 (120) 96 97.5 01/19/25 10:53 3.0 01/19/25 07:39 Nasal Cannula* 32 Intake/Output Intake and Output 01/19/25 07:00 Intake Total 2540 ml Output Total 1275 ml Balance 1265 ml Intake Oral 2540 ml Output Urine Total 1275 ml # Voids 3 # Bowel Movements 1 Exam Patient ambulating around the hospital. Patient was smoking. General Appearance: Alert, Oriented X3, Cooperative, mild distress, Other (Morbidly obese) HEENT: Atraumatic, PERRLA Lungs: Clear to auscultation, Normal air movement Cardiovascular: Normal S1, Normal S2 Abdomen: Normal bowel sounds, Soft, No tenderness, No hepatospenomegaly Genitourinary: No Apparent Abnormalities Neuro: Normal gait, Normal speech Skin: Dry, Intact, Warm Psych/Mental Status: Mental status NL, Mood NL Medications Current Medications Medications Dose Ordered Sig/Isa Route Start Time Stop Time Status Last Admin Dose Admin Sodium Chloride 10 ml Q8HR IV 01/16/25 14:00 01/19/25 06:15 10 ML Ondansetron HCl 4 mg Q4HP PRN IV 01/16/25 12:45 Docusate Sodium 100 mg BIDPRN PRN PO 01/16/25 12:45 Acetaminophen 650 mg Q6HP PRN PO 01/16/25 12:45 Nitroglycerin 0.4 mg Q5MINP PRN SL 01/16/25 12:45 Morphine Sulfate 2 mg Q30M PRN IV 01/16/25 12:45 Albuterol 2.5 mg Q6HWA NEB 01/16/25 18:00 01/19/25 12:39 2.5 MG Ipratropium [place] 0.5 mg Q6HWA NEB 01/16/25 18:00 01/19/25 12:39 0.5 MG Allopurinol 100 mg DAILY PO 01/17/25 10:00 01/19/25 09:17 100 MG Aspirin 81 mg DAILY PO 01/17/25 10:00 01/19/25 09:14 81 MG Finasteride 5 mg DAILY PO 01/17/25 10:00 01/19/25 09:17 5 MG Tamsulosin HCl 0.4 mg QPM PO 01/16/25 18:00 01/18/25 17:50 0.4 MG Atorvastatin Calcium 10 mg HS PO 01/16/25 22:00 01/18/25 22:03 10 MG Cholecalciferol 2,000 unit DAILY PO 01/17/25 10:00 01/19/25 09:17 2,000 UNIT Patient Own Medication 1 aer DAILY IN 01/17/25 10:00 Glipizide 10 mg DAILY@BREAKFAST PO 01/17/25 08:00 01/19/25 09:15 10 MG Furosemide 20 mg BIDD IV 01/16/25 18:00 01/19/25 05:24 20 MG Methylprednisolone Sodium Succinate 40 mg BID IV 01/16/25 22:00 01/19/25 09:13 40 MG Diagnostic Test (Pha) 1 strip ACHS 01/16/25 17:00 01/19/25 11:15 1 STRIP Insulin Human Regular HS SC 01/16/25 22:00 01/18/25 22:30 2 UNITS Insulin Human Regular AC SC 01/16/25 17:00 01/19/25 11:22 6 UNITS Dextrose 50 ml UD PRN IV 01/16/25 13:45 Budesonide 0.5 mg BID NEB 01/17/25 22:00 01/19/25 07:39 0.5 MG Nicotine 1 patch Q24H TD 01/18/25 16:00 01/18/25 16:18 1 PATCH Lisinopril 20 mg DAILY PO 01/19/25 10:00 01/19/25 09:17 20 MG Acetaminophen/ Hydrocodone Bitart 1 tab Q6HP PRN PO 01/18/25 12:30 01/19/25 10:04 1 TAB Hydralazine HCl 10 mg Q6HP PRN IV 01/19/25 05:15 01/19/25 05:24 10 MG Carvedilol 12.5 mg BID PO 01/19/25 22:00 Laboratory Results Laboratory Tests 01/18/25 05:47 Urinalysis Test 01/16/25 15:04 Urine Color Light-yellow (Yellow) Urine Clarity Clear (Clear) Urine pH 5.5 (5.0-9.0) Urine Specific [place] 1.013 (1.001-1.035) Urine Protein Negative (Negative) Urine Ketones 1+ (Negative) H Urine Blood Negative /uL (Negative) Urine Nitrite Negative (Negative) Urine Bilirubin Negative (Negative) Urine Urobilinogen Normal mg/dL (Negative) Urine Leukocyte Esterase Negative /uL (Negative) Urine RBC <1 /hpf (0 - 3) Urine Microscopic WBC 2 /HPF (0-3) Urine Squamous Epithelial Cells Few /hpf (<5) Urine Bacteria None seen /hpf (None Seen) Urine Hyaline Casts Few /lpf (0 - 2) Urine Mucus Few (None Seen) Urine Glucose Normal mg/dL (Normal) Labs and/or images reviewed: Labs reviewed by me, Image(s) reviewed by me Assessment/Plan Assessment/Plan Impression: -acute on chronic hypoxic respiratory failure -COPD with exacerbation -leukocytosis, rule out sepsis -obesity -nicotine dependence -dyslipidemia -primary hypertension Plan: Events: Patient ambulating with decreased dyspnea. Patient reports having persistent swelling in his lower extremities which was appreciated. Patient also has uncontrolled hypertension. -continue bronchodilators, Pulmicort -pain management: Increase [place]. -continue IV diuresis -increase carvedilol to 12.5 mg p.o. b.i.d., continue lisinopril -taper Solu-Medrol -continue empiric antibiotic therapy -continue antihypertensives -repeat labs, chest x-ray in a.m. Total time spent with patient discussing and formulating plan of care: 35 minutes. This medical document was created using an electronic medical record system with [employer] dictation system. Although this document has been carefully reviewed, there may still be some phonetic and typographical errors. These areas are purely typographical due to imperfections of the software programs, and do not reflect any compromise in the patient's medical care. Plan discussed with: Patient, Other (RN) My Orders Orders - STEPHANY ALEJANDRE NP Procedure Category Date Status Time Carvedilol Tablet PHA 01/19/25 In Process (Coreg Tablet) 22:00 Insulin Lantus PHA 01/19/25 Verified (Glargine) (Lantus) 22:00 Basic Metabolic Panel LAB 01/20/25 Verified 04:00 Date of Service: Jan 19, 2025 Billing Provider: STEPHANY ALEJANDRE NP Common Visit Codes: [id number] INP/OBS CARE(HIGH) STEPHANY ALEJANDRE NP Jan 19, 2025 14:16
[2025-01-19] MEDS: CARVEDILOL 12.5 MG TAB PO SCH (21:28)
[2025-01-19] MEDS: INSULIN LANTUS (GLARGINE) 1 /0.01ml (100units/ml) SC SCH (22:00)
[2025-01-20] VITALS (14 sets, daily range): BP systolic 138–162; BP diastolic 98–113; PULSE 54–99; RESP 18–19; TEMP 97.5–98.2; O2SAT 94–100
[2025-01-20 07:17] LABS: Chloride 99 mmol/L (98-107); Potassium 4.7 mmol/L (3.5-5.1); Sodium 136 mmol/L (136-145)
[2025-01-20 07:18] LABS: Anion Gap 0 (5-15)
[2025-01-20 07:19] LABS: Calcium 10.2 mg/dL (8.7-10.4)
[2025-01-20 07:24] LABS: BUN/Creatinine Ratio 21.5 (10.0-20.0); Blood Urea Nitrogen 23 mg/dL (9-23)
[2025-01-20 07:30] LABS: Carbon Dioxide 37 mmol/L (20-31); Glucose 237 mg/dL (74-106)
--- NOTE | 2025-01-20 13:23 | DVHPN2 ---
Subjective The patient is seen and examined at bedside. Complain of shortness a breath. Reviewed: Care Plan, H&P, Labs, Medications Changes from previous H/P or p: No Changes General: Per HPI Eyes: No Pain, No Vision change, No Conjunctivae inflammation, No Eyelid inflammation, No Other, No Redness ENT: No Ear pain, No Ear discharge, No Nose pain, No Nose discharge, No Nose congestion, No Mouth pain, No Mouth swelling, No Throat pain, No Throat swelling, No Other Cardiovascular: No Chest Pain, No Palpitations, No Orthopnea, No Paroxysmal Noc. Dyspnea, No Edema, No Lt Headedness, No Other Respiratory: No Cough, No Dry; Shortness of breath, SOB with excertion, W heezing; No Hemoptysis, No Pleuritic Pain, No Sputum, No Other Gastrointestinal: No Nausea, No Vomiting, No Abdominal Pain, No Diarrhea, No Constipation, No Melena, No Hematochezia, No Other Genitourinary: No Dysuria, No Frequency, No Incontinence, No Hematuria, No Retention, No Other Musculoskeletal: No other, No neck pain, No shoulder pain, No arm pain, No back pain, No hand pain, No leg pain, No foot pain Skin: No Rash, No Lesions, No Jaundice, No Bruising, No Other Objective Vitals Vital Signs Date Time Temp Pulse Resp B/P (MAP) Pulse Ox O2 Delivery O2 Flow Rate FiO2 01/20/25 13:08 97.8 67 19 139/106 (117) 96 97.8 01/20/25 08:00 Nasal Cannula* 3 32 Intake/Output Intake and Output 01/20/25 07:00 Intake Total 2605 ml Output Total 1600 ml Balance 1005 ml Intake Oral 2605 ml Output Urine Total 1600 ml # Voids 3 General Appearance: Alert, Oriented X3, Cooperative, mild distress, Other (Morbidly obese) HEENT: Atraumatic, PERRLA Lungs: Clear to auscultation, Normal air movement Cardiovascular: Normal S1, Normal S2 Abdomen: Normal bowel sounds, Soft, No tenderness, No hepatospenomegaly Genitourinary: No Apparent Abnormalities Neuro: Normal gait, Normal speech Skin: Dry, Intact, Warm Psych/Mental Status: Mental status NL, Mood NL Medications Current Medications Medications Dose Ordered Sig/Isa Route Start Time Stop Time Status Last Admin Dose Admin Sodium Chloride 10 ml Q8HR IV 01/16/25 14:00 01/20/25 06:30 10 ML Ondansetron HCl 4 mg Q4HP PRN IV 01/16/25 12:45 Docusate Sodium 100 mg BIDPRN PRN PO 01/16/25 12:45 Acetaminophen 650 mg Q6HP PRN PO 01/16/25 12:45 Nitroglycerin 0.4 mg Q5MINP PRN SL 01/16/25 12:45 Morphine Sulfate 2 mg Q30M PRN IV 01/16/25 12:45 Albuterol 2.5 mg Q6HWA NEB 01/16/25 18:00 01/20/25 11:56 2.5 MG Ipratropium [place] 0.5 mg Q6HWA NEB 01/16/25 18:00 01/20/25 11:56 0.5 MG Allopurinol 100 mg DAILY PO 01/17/25 10:00 01/20/25 09:21 100 MG Aspirin 81 mg DAILY PO 01/17/25 10:00 01/20/25 09:21 81 MG Finasteride 5 mg DAILY PO 01/17/25 10:00 01/20/25 09:24 5 MG Tamsulosin HCl 0.4 mg QPM PO 01/16/25 18:00 01/19/25 17:24 0.4 MG Atorvastatin Calcium 10 mg HS PO 01/16/25 22:00 01/19/25 21:27 10 MG Cholecalciferol 2,000 unit DAILY PO 01/17/25 10:00 01/20/25 09:21 2,000 UNIT Patient Own Medication 1 aer DAILY IN 01/17/25 10:00 Glipizide 10 mg DAILY@[email or web address] PO 01/17/25 08:00 01/20/25 09:23 10 MG Furosemide 20 mg BIDD IV 01/16/25 18:00 01/20/25 06:29 20 MG Methylprednisolone Sodium Succinate 40 mg BID IV 01/16/25 22:00 01/20/25 09:24 40 MG Diagnostic Test (Pha) 1 strip ACHS 01/16/25 17:00 01/20/25 06:35 1 STRIP Insulin Human Regular HS SC 01/16/25 22:00 01/19/25 21:00 6 UNITS Insulin Human Regular AC SC 01/16/25 17:00 01/20/25 06:35 6 UNITS Dextrose 50 ml UD PRN IV 01/16/25 13:45 Budesonide 0.5 mg BID NEB 01/17/25 22:00 01/20/25 07:00 0.5 MG Nicotine 1 patch Q24H TD 01/18/25 16:00 01/19/25 17:25 1 PATCH Lisinopril 20 mg DAILY PO 01/19/25 10:00 01/20/25 09:24 20 MG Acetaminophen/ Hydrocodone Bitart 1 tab Q6HP PRN PO 01/18/25 12:30 01/20/25 09:42 1 TAB Hydralazine HCl 10 mg Q6HP PRN IV 01/19/25 05:15 01/19/25 21:23 10 MG Carvedilol 12.5 mg BID PO 01/19/25 22:00 01/20/25 09:22 12.5 MG Insulin Glargine 10 units HS SC 01/19/25 22:00 01/19/25 22:00 10 UNITS Laboratory Results Laboratory Tests 01/18/25 05:47 01/20/25 06:33 Chemistry Test 01/20/25 06:33 Calcium Level 10.2 mg/dL (8.7-10.4) Urinalysis Test 01/16/25 15:04 Urine Color Light-yellow (Yellow) Urine Clarity Clear (Clear) Urine pH 5.5 (5.0-9.0) Urine Specific [place] 1.013 (1.001-1.035) Urine Protein Negative (Negative) Urine Ketones 1+ (Negative) H Urine Blood Negative /uL (Negative) Urine Nitrite Negative (Negative) Urine Bilirubin Negative (Negative) Urine Urobilinogen Normal mg/dL (Negative) Urine Leukocyte Esterase Negative /uL (Negative) Urine RBC <1 /hpf (0 - 3) Urine Microscopic WBC 2 /HPF (0-3) Urine Squamous Epithelial Cells Few /hpf (<5) Urine Bacteria None seen /hpf (None Seen) Urine Hyaline Casts Few /lpf (0 - 2) Urine Mucus Few (None Seen) Urine Glucose Normal mg/dL (Normal) Labs and/or images reviewed: Labs reviewed by me Assessment/Plan Assessment/Plan -acute on chronic hypoxic respiratory failure -COPD with exacerbation -leukocytosis, rule out sepsis -obesity -nicotine dependence -dyslipidemia -primary hypertension Plan: Events: Patient ambulating with decreased dyspnea. Patient reports having persistent swelling in his lower extremities which was appreciated. Patient also has uncontrolled hypertension. -continue bronchodilators, Pulmicort -pain management: Continue [place]. -continue IV diuresis -continue carvedilol to 12.5 mg p.o. b.i.d., continue lisinopril -taper Solu-Medrol -continue empiric antibiotic therapy -continue antihypertensives This medical document was created using an electronic medical record system with [employer] dictation system. Although this document has been carefully reviewed, there may still be some phonetic and typographical errors. These areas are purely typographical due to imperfections of the software programs, and do not reflect any compromise in the patient's medical care. Plan discussed with: Patient Date of Service: Jan 20, 2025 Billing Provider: TERESITA ANDRADE MD Common Visit Codes: [id number] INP/OBS CARE(HIGH) TERESITA ANDRADE MD Jan 20, 2025 13:23
[2025-01-20] MEDS ORDERED: INSULIN LANTUS (GLARGINE) 1 /0.01ml (100units/ml) SC SCH (14:15)
[2025-01-20] MEDS: HYDROcodone-ACET 10/325MG TAB PO PRN (17:19)
[2025-01-20] MEDS: INSULIN LANTUS (GLARGINE) 1 /0.01ml (100units/ml) SC SCH (22:07)
[2025-01-21] VITALS (14 sets, daily range): BP systolic 121–142; BP diastolic 79–100; PULSE 66–85; RESP 18–19; TEMP 97.3–98.1; O2SAT 91–98
--- NOTE | 2025-01-21 13:09 | DVHPN2 ---
Subjective The patient seen and examined at bedside. No change today. Reviewed: Care Plan, H&P, Labs, Medications Changes from previous H/P or p: No Changes General: Per HPI Eyes: No Pain, No Vision change, No Conjunctivae inflammation, No Eyelid inflammation, No Other, No Redness ENT: No Ear pain, No Ear discharge, No Nose pain, No Nose discharge, No Nose congestion, No Mouth pain, No Mouth swelling, No Throat pain, No Throat swelling, No Other Cardiovascular: No Chest Pain, No Palpitations, No Orthopnea, No Paroxysmal Noc. Dyspnea, No Edema, No Lt Headedness, No Other Respiratory: No Cough, No Dry; Shortness of breath, SOB with excertion, W heezing; No Hemoptysis, No Pleuritic Pain, No Sputum, No Other Gastrointestinal: No Nausea, No Vomiting, No Abdominal Pain, No Diarrhea, No Constipation, No Melena, No Hematochezia, No Other Genitourinary: No Dysuria, No Frequency, No Incontinence, No Hematuria, No Retention, No Other Musculoskeletal: No other, No neck pain, No shoulder pain, No arm pain, No back pain, No hand pain, No leg pain, No foot pain Skin: No Rash, No Lesions, No Jaundice, No Bruising, No Other Objective Vitals Vital Signs Date Time Temp Pulse Resp B/P (MAP) Pulse Ox O2 Delivery O2 Flow Rate FiO2 01/21/25 12:15 66 18 98 01/21/25 12:09 Nasal Cannula 4.0 01/21/25 12:09 36 01/21/25 09:26 134/94 01/21/25 09:09 97.8 97.8 Intake/Output Intake and Output 01/21/25 07:00 Intake Total 900 ml Output Total 1900 ml Balance -1000 ml Intake Oral 900 ml Output Urine Total 1900 ml # Bowel Movements 1 General Appearance: Alert, Oriented X3, Cooperative, mild distress, Other (Morbidly obese) HEENT: Atraumatic, PERRLA Lungs: Clear to auscultation, Normal air movement Cardiovascular: Normal S1, Normal S2 Abdomen: Normal bowel sounds, Soft, No tenderness, No hepatospenomegaly Genitourinary: No Apparent Abnormalities Neuro: Normal gait, Normal speech Skin: Dry, Intact, Warm Psych/Mental Status: Mental status NL, Mood NL Medications Current Medications Medications Dose Ordered Sig/Sia Route Start Time Stop Time Status Last Admin Dose Admin Sodium Chloride 10 ml Q8HR IV 01/16/25 14:00 01/21/25 06:06 10 ML Ondansetron HCl 4 mg Q4HP PRN IV 01/16/25 12:45 Docusate Sodium 100 mg BIDPRN PRN PO 01/16/25 12:45 Acetaminophen 650 mg Q6HP PRN PO 01/16/25 12:45 Nitroglycerin 0.4 mg Q5MINP PRN SL 01/16/25 12:45 Morphine Sulfate 2 mg Q30M PRN IV 01/16/25 12:45 Albuterol 2.5 mg Q6HWA NEB 01/16/25 18:00 01/21/25 12:08 2.5 MG Ipratropium [place] 0.5 mg Q6HWA NEB 01/16/25 18:00 01/21/25 12:09 0.5 MG Allopurinol 100 mg DAILY PO 01/17/25 10:00 01/21/25 09:25 100 MG Aspirin 81 mg DAILY PO 01/17/25 10:00 01/21/25 09:24 81 MG Finasteride 5 mg DAILY PO 01/17/25 10:00 01/21/25 09:24 5 MG Tamsulosin HCl 0.4 mg QPM PO 01/16/25 18:00 01/20/25 17:19 0.4 MG Atorvastatin Calcium 10 mg HS PO 01/16/25 22:00 01/20/25 22:05 10 MG Cholecalciferol 2,000 unit DAILY PO 01/17/25 10:00 01/21/25 09:24 2,000 UNIT Patient Own Medication 1 aer DAILY IN 01/17/25 10:00 Glipizide 10 mg DAILY@BREAKFAST PO 01/17/25 08:00 01/21/25 09:33 10 MG Furosemide 20 mg BIDD IV 01/16/25 18:00 01/21/25 06:07 20 MG Methylprednisolone Sodium Succinate 40 mg BID IV 01/16/25 22:00 01/21/25 09:28 40 MG Diagnostic Test (Pha) 1 strip ACHS 01/16/25 17:00 01/21/25 11:44 1 STRIP Insulin Human Regular HS SC 01/16/25 22:00 01/20/25 22:19 4 UNITS Insulin Human Regular AC SC 01/16/25 17:00 01/21/25 11:44 3 UNITS Dextrose 50 ml UD PRN IV 01/16/25 13:45 Budesonide 0.5 mg BID NEB 01/17/25 22:00 01/21/25 07:01 0.5 MG Nicotine 1 patch Q24H TD 01/18/25 16:00 01/20/25 17:22 1 PATCH Lisinopril 20 mg DAILY PO 01/19/25 10:00 01/21/25 09:26 20 MG Hydralazine HCl 10 mg Q6HP PRN IV 01/19/25 05:15 01/19/25 21:23 10 MG Carvedilol 12.5 mg BID PO 01/19/25 22:00 01/21/25 09:25 12.5 MG Acetaminophen/ Hydrocodone Bitart 1 tab Q6HP PRN PO 01/20/25 15:00 01/21/25 11:26 1 TAB Insulin Glargine 20 units HS SC 01/20/25 22:00 01/20/25 22:07 20 UNITS Laboratory Results Laboratory Tests 01/18/25 05:47 01/20/25 06:33 Urinalysis Test 01/16/25 15:04 Urine Color Light-yellow (Yellow) Urine Clarity Clear (Clear) Urine pH 5.5 (5.0-9.0) Urine Specific [place] 1.013 (1.001-1.035) Urine Protein Negative (Negative) Urine Ketones 1+ (Negative) H Urine Blood Negative /uL (Negative) Urine Nitrite Negative (Negative) Urine Bilirubin Negative (Negative) Urine Urobilinogen Normal mg/dL (Negative) Urine Leukocyte Esterase Negative /uL (Negative) Urine RBC <1 /hpf (0 - 3) Urine Microscopic WBC 2 /HPF (0-3) Urine Squamous Epithelial Cells Few /hpf (<5) Urine Bacteria None seen /hpf (None Seen) Urine Hyaline Casts Few /lpf (0 - 2) Urine Mucus Few (None Seen) Urine Glucose Normal mg/dL (Normal) Labs and/or images reviewed: Labs reviewed by me Assessment/Plan Assessment/Plan -acute on chronic hypoxic respiratory failure -COPD with exacerbation -leukocytosis, rule out sepsis -obesity -nicotine dependence -dyslipidemia -primary hypertension Plan: Events: Patient ambulating with decreased dyspnea. Patient reports having persistent swelling in his lower extremities which was appreciated. Patient also has uncontrolled hypertension. -continue bronchodilators, Pulmicort -pain management: Continue [place]. -continue IV diuresis -continue carvedilol to 12.5 mg p.o. b.i.d., continue lisinopril -taper Solu-Medrol -continue empiric antibiotic therapy -continue antihypertensives Discharge plan This medical document was created using an electronic medical record system with [employer] computerized dictation system. Although this document has been carefully reviewed, there may still be some phonetic and typographical errors. These areas are purely typographical due to imperfections of the software programs, and do not reflect any compromise in the patient's medical care. Plan discussed with: Patient My Orders Orders - TERESITA ANDRADE MD Procedure Category Date Status Time Hydrocodone-Acet PHA 01/20/25 In Process 10/325mg Tab ([place] 15:00 Insulin Lantus PHA 01/20/25 In Process (Glargine) (Lantus) 22:00 Date of Service: Jan 21, 2025 Billing Provider: TERESITA ANDRADE MD Common Visit Codes: [id number] INP/OBS CARE(HIGH) TERESITA ANDRADE MD Jan 21, 2025 13:09
[2025-01-21] MEDS: DOCUSATE SOD 100 MG CAP PO PRN (22:27)
[2025-01-22] VITALS (10 sets, daily range): BP systolic 120–165; BP diastolic 70–97; PULSE 70–85; RESP 16–20; TEMP 97.4–97.8; O2SAT 92–97
[2025-01-22] MEDS ORDERED: [UNRECOGNIZED DRUG - CODE] XX (13:44)
[2025-01-22] MEDS ORDERED: ALBU0.084 NEB (13:46)
--- NOTE | 2025-01-22 14:25 | DVHDS2 ---
Discharge Summary Date of Admission Jan 16, 2025 at 12:42 Date of Discharge: Jan 22, 2025 Admitting Diagnosis COPD with acute exacerbation Labs/Diagnostic Data: Laboratory Results Test 01/22/25 11:47 01/20/25 06:33 01/18/25 05:47 01/17/25 04:51 POC Glucose 168 mg/dl (70-106) Sodium Level 136 mmol/L (136-145) Potassium Level 4.7 mmol/L (3.5-5.1) Chloride Level 99 mmol/L (98-107) Carbon Dioxide Level 37 mmol/L (20-31) Anion Gap 0 (5-15) Blood Urea Nitrogen 23 mg/dL (9-23) Creatinine 1.07 mg/dL (0.700-1.30) Glomerular Filtration Rate Calc 84 mL/min (>90) BUN/Creatinine Ratio 21.5 (10.0-20.0) Serum Glucose 237 mg/dL (74-106) Calcium Level 10.2 mg/dL (8.7-10.4) White Blood Count 16.0 10^3/uL (4.4-10.8) Red Blood Count 5.18 10^6/uL (4.5-5.90) Hemoglobin 15.9 g/dL (13.5-17.5) Hematocrit 47.2 % (41.0-53.0) Mean Corpuscular Volume 91.1 fL (80.0-100.0) Mean Corpuscular Hemoglobin 30.8 pg (28.0-32.0) Mean Corpuscular Hemoglobin Concent 33.8 g/dL (32.0-36.0) Red Cell Distribution Width 17.0 % (11.8-14.3) Platelet Count 259 10^3/uL (140-450) Mean Platelet Volume 8.0 fL (6.9-10.8) Neutrophils (%) (Auto) 92.5 % (37.0-80.0) Lymphocytes (%) (Auto) 4.8 % (10.0-50.0) Monocytes (%) (Auto) 2.6 % (0.0-12.0) Eosinophils (%) (Auto) 0.0 % (0.0-7.0) Basophils (%) (Auto) 0.1 % (0.0-2.0) Neutrophils # (Auto) 14.8 10 ^3/uL (1.6-8.6) Lymphocytes # (Auto) 0.8 10 ^3/uL (0.4-5.4) Monocytes # (Auto) 0.4 10 ^3/uL (0-1.3) Eosinophils # (Auto) 0 10 ^3/uL (0-0.8) Basophils # (Auto) 0 10 ^3/uL (0-0.2) Nucleated Red Blood Cells 0.0 % Magnesium Level 1.7 mg/dL (1.6-2.6) Total Bilirubin 0.6 mg/dL (0.2-1.0) Aspartate Amino Transferase (AST) 26 U/L (13-40) Alanine Aminotransferase (ALT) 25 U/L (7-40) Alkaline Phosphatase 101 U/L (46-116) Total Protein 7.2 g/dL (5.7-8.2) Albumin 4.8 g/dL (3.2-4.8) Test 01/16/25 15:04 01/16/25 09:34 Urine Color Light-yellow (Yellow) Urine Clarity Clear (Clear) Urine pH 5.5 (5.0-9.0) Urine Specific [place] 1.013 (1.001-1.035) Urine Protein Negative (Negative) Urine Ketones 1+ (Negative) Urine Blood Negative /uL (Negative) Urine Nitrite Negative (Negative) Urine Bilirubin Negative (Negative) Urine Urobilinogen Normal mg/dL (Negative) Urine Leukocyte Esterase Negative /uL (Negative) Urine RBC <1 /hpf (0 - 3) Urine Microscopic WBC 2 /HPF (0-3) Urine Squamous Epithelial Cells Few /hpf (<5) Urine Bacteria None seen /hpf (None Seen) Urine Hyaline Casts Few /lpf (0 - 2) Urine Mucus Few (None Seen) Urine Glucose Normal mg/dL (Normal) Urine Opiates Screen Neg (NEGATIVE) Urine Fentanyl Screen Neg (NEGATIVE) Urine Barbiturates Screen Neg (NEGATIVE) Urine Phencyclidine Screen Neg (NEGATIVE) Urine Amphetamines Screen Neg (NEGATIVE) Urine Benzodiazepines Screen Neg (NEGATIVE) Urine Cocaine Screen Neg (NEGATIVE) Urine Cannabinoids Screen Neg (NEGATIVE) Troponin I High Sensitivity 39 ng/L (</=54) B-Type Natriuretic Peptide 72.02 pg/mL (0-100) Other Laboratory Tests 01/20/25 06:33 01/18/25 05:47 Brief Hx & Hospital Course: History of Present Illness Lloyd Morales is a 54-year-old male with past medical history of CHF, COPD with home oxygen, diabetes, hypertension, hyperlipidemia, and gout, who came to the hospital for shortness of breath. Patient states that he has intermittent shortness of breath for months. He does have home oxygen that he uses, he also has a nebulizer machine, but is out of the medicine for it. He states he came into the hospital today because his shortness of breath was severe and not improving with his inhaler. Patient also has CHF with bilateral pedal edema +3. He states this is worse then his normal edema. Course of hospitalization: Patient was given IV diuresis, bronchodilators, inhaled corticosteroids. Patient was found multiple times leaving the hospital room to go smoke outside. Patient's clinical status has improved dramatically. Patient will be discharged home , to continue all previous home medications. Counseling was given to the patient regarding the need to abstain from smoking as well as attempting to partake in a low-sodium diet. Patient states that he does not have anybody to cook for him and a majority of his meals are frozen microwave meals. Patient states that [facility] did assist him with appropriate low-sodium diet meals, but states that he does not like the taste and she was this to be heat differently. Patient will follow up with his PCP in 1-2 weeks and continue all previous home medications. Physical examination General: Alert and Oriented x3. No acute distress. Well-nourished. Obese Eyes: EOMI. Anicteric. HENT: Moist mucous membranes. Lungs: Clear to auscultation bilaterally. No accessory muscle use. Cardiovascular: Regular rate and rhythm. No murmur. No JVD. Abdomen: Soft, non-tender and non-distended. No palpable masses. Extremities: No edema. Non-tender. Skin: No rashes or lesions. Warm. Neurologic: No focal neurological deficits. CN II-XII grossly intact, but not individually tested. Psychiatric: Cooperative. Appropriate mood and affect. Total time spent with patient discussing and formulating plan of care: 35 minutes. This medical document was created using an electronic medical record system with [employer] dictation system. Although this document has been carefully reviewed, there may still be some phonetic and typographical errors. These areas are purely typographical due to imperfections of the software programs, and do not reflect any compromise in the patient's medical care. Condition at Discharge: Poor Final Diagnosis/Problems List Acute on Chronic Respiratory Failure Secondary diagnosis: -acute on chronic hypoxic respiratory failure -COPD with exacerbation -leukocytosis, ruled out sepsis -obesity -nicotine dependence -dyslipidemia -primary hypertension Discharge Disposition: Home Discharge Instruct/Medications Diet: Consistent carbohydrate, Cardiac 2g Na,low cholest Activity: No Restrictions, As Tolerated Follow Up/Referral: PCP in 1-2 weeks Medications: Continue alll home medications 36 Discharge Statement: "Patient was advised to return to the ER or call 911 if any headaches, dizziness, shortness of breath, chest pain, abdominal pain, bleeding, fevers, or worsening of medical condition. Patient was counseled about treatment plan, medications, possible side effects, patientverbalized understanding. All questions were answered to the best of my ability. This discharge took greater then 30 minutes in planning, reviewing documentation, counseling the patient, and discussing with other team members." ASSESSMENT ASSESSMENT Assessment Acute on Chronic Respiratory Failure Date of Service: Jan 22, 2025 Billing Provider: STEPHANY ALEJANDRE NP Common Visit Codes: 72785-FAA/OBS DISCH DAY >30min STEPHANY ALEJANDRE NP Jan 22, 2025 14:25
== END 2025-01-22 16:00 | disposition home or self-care (01) | DRG 140 ==
LOC: EDBD 09:13 → ER 09:13 → OVERFLOW 12:42 → TELE-WESTW 01-17 10:28
PROVIDERS: ADMIT Nurse Practitioner Acute Care; ATTEND Nurse Practitioner Acute Care
DX: J44.1 Chronic obstructive pulmonary disease with (acute) exacerbation (principal); J96.21 Acute and chronic respiratory failure with hypoxia; I50.32 Chronic diastolic (congestive) heart failure; E11.9 Type 2 diabetes mellitus without complications; D72.829 Elevated white blood cell count, unspecified; E66.9 Obesity, unspecified; E78.5 Hyperlipidemia, unspecified; I11.0 Hypertensive heart disease with heart failure; F17.210 Nicotine dependence, cigarettes, uncomplicated; M10.9 Gout, unspecified; Z79.899 Other long term (current) drug therapy; Z68.36 Body mass index [BMI] 36.0-36.9, adult
CPT/HCPCS: 36415; 71045; 80048; 80053; 80307; 81001; 82962; 83735; 83880; 84484; 85025; 93005; 94640; 96374; 96375; 99291; G0378; J1815

== ENCOUNTER 2025-05-03 18:48 | Inpatient (IN) | payer MEDICAID ==
[~2025-05-03] VITALS: Ht 172.7 cm; Wt 118.8 kg
[~2025-05-03 18:48] MED LIST changes: +ALBU0.084 NEB; +CARV6.2551 PO; -CEPH500C PO; -IBU600T PO; +LISI-275 PO; -LISI20TA56 PO; -MET25T PO; +[UNRECOGNIZED DRUG - CODE] XX
[2025-05-03] MEDS: DexAMETHasone SOD PHOS 10MG/1ML VIAL INJ IV ONE (19:00)
--- NOTE | 2025-05-03 19:32 | ED.PDOC ---
SOB-HPI HPI Comments This is a 54 year old male YUVAL presenting to the ED with chief complaint of SOB. Patient reports that he had been experiencing SOB since this morning with 2L of O2 not helping with his symptoms. EMS relays that the patient was in the high 80s on O2 saturation with 2L, but when bumped up to 4L on route he went up to 99%. Patient denies any chest pain, cough, fever, chills, dizziness, headache, or hemoptysis. Patient has a history of COPD and CHF. Chief Complaint: Shortness of Breath Time Seen by MD: 19:30 Primary Care Provider: Chris Reviewed notes: Nurses Notes, [employer] Notes, Medications, Allergies Information Source: Patient, Emergency Med Personnel Mode of Arrival: EMS Severity: Moderate Timing: Hours Duration: Since onset Context: At Rest PE Risk Factors: None History of: COPD, CHF Prehospital treatment: Oxygen Modifying Factors: Nothing Associated Signs and Symptoms: Wheeze, Cough Quality: Tightness If cough with SOB: Non-Productive Past Medical History PAST MEDICAL HISTORY: CHF, COPD, DM, Gout, High Lipids, HTN Surgical History: Denies all surgeries Family History Family History: Reviewed,noncontributory to illness Social History Smoker: Cigarettes, Less Than 1 Pack/Day Alcohol: Occasionally Drugs: Marijuana Lives In: Home Constitutional: denies: chills, diaphoresis, fatigue, fever, malaise, sweats, weakness, others EENTM: denies: blurred vision, double vision, ear bleeding, ear discharge, ear drainage, ear pain, ear ringing, eye pain, eye redness, hearing loss, mouth pain, mouth swelling, nasal discharge, nose bleeding, nose congestion, nose pain, photophobia, tearing, throat pain, throat swelling, voice changes, others Respiratory: reports: cough, shortness of breath; denies: hemoptysis, orthopnea, SOB at rest, SOB with excertion, stridor, wheezing, others Cardiovascular: denies: chest pain, dizzy spells, diaphoresis, Dyspnea on exertion, edema, irregular heart beat, left arm pain, lightheadedness, palpitations, PND, syncope, others Gastrointestinal: denies: abdomen distended, abdominal pain, blood streaked bowels, constipated, diarrhea, dysphagia, difficulty swallowing, hematemesis, melena, nausea, poor appetite, poor fluid intake, rectal bleeding, rectal pain, vomiting, others Genitourinary: denies: burning, dysuria, flank pain, frequency, hematuria, incontinence, penile discharge, penile sore, pain, testicle pain, testicle swelling, urgency, others Neurological: denies: dizziness, fainting, headache, left sided numbness, left sided weakness, numbness, paresthesia, pre-existing deficit, right sided numbness, right sided weakness, seizure, speech problems, tingling, tremors, weakness, others Musculoskeletal: denies: back pain, gout, joint pain, joint swelling, muscle pain, muscle stiffness, neck pain, others Integumetry: denies: bruises, change in color, change in hair/nails, dryness, laceration, lesions, lumps, rash, wounds, others Allergic/Immunocompromised: denies: Difficulty Healing, Frequent Infections, Hives, Itching, others Hematologic/Lymphatic: denies: anemia, blood clots, easy bleeding, easy bruising, swollen glands, others Endocrine: denies: excessive hunger, excessive sweating, excessive thirst, excessive urination, flushing, intolerance to cold, intolerance to heat, unexplained weight gain, unexplained weight loss, others Psychiatric: denies: anxiety, bipolar disorder, depression, hopeless, panic disorder, schizophrenia, sleepless, suicidal, others All Other Systems: Reviewed and Negative Physical Exam General Appearance: Moderate Distress (Moderate distress due to shortness a breath concerns. Patient appears to be in poor overall health.), Obese HEENT: Normal ENT Inspection, Pharynx Normal, TMs Normal Neck: Full Range of Motion, Non-Tender, Normal, Normal Inspection Respiratory: Other (Patchy rhonchi and wheezing appreciated in global bilateral lung roque. No accessory muscle use. Patient was on 4 L of O2 via nasal cannula at time of evaluation.) Cardiovascular: No Edema, No JVD, No Murmur, No Gallop, Normal Peripheral Pulses, Regular Rate/Rhythm Breast Exam: Deferred Gastrointestinal: Non Tender, No Pulsatile Mass, Normal Bowel Sounds, Soft Genitalia: Deferred Pelvic: Deferred Rectal: Deferred Extremities: No calf tenderness, Normal capillary refill, Non-tender Neurologic: Alert, No Motor Deficits, Normal Affect, Normal Mood, No Sensory Deficits Cerebellar Function: NOT DONE Reflexes: NOT DONE Skin: Dry, Normal Color, Warm Lymphatic: No Adenopathy Was a procedure done? Was a procedure done?: No Differential Dx Differential Diagnosis: Anxiety, CHF, COPD, Pneumonia, Pneumothorax, URI, Other (Acute respiratory distress, acute respiratory failure) X-Ray, Labs, Meds, VS Vital Signs Date Time Temp Pulse Resp B/P (MAP) Pulse Ox O2 Delivery O2 Flow Rate FiO2 05/03/25 22:35 98.2 80 18 125/82 (96) 97 98.2 05/03/25 20:16 98.1 76 20 154/82 (106) 97 98.1 05/03/25 20:16 76 20 2 Nasal Cannula* 2 28 05/03/25 20:00 80 05/03/25 19:10 99.1 81 25 181/112 (135) 99 99.1 Lab Test 05/03/25 20:32 05/03/25 19:34 Range/Units Troponin I High Sensitivity 22 23 </=54 ng/L White Blood Count 10.5 4.4-10.8 10^3/uL Red Blood Count 5.13 4.5-5.90 10^6/uL Hemoglobin 16.2 13.5-17.5 g/dL Hematocrit 46.8 41.0-53.0 % Mean Corpuscular Volume 91.2 80.0-100.0 fL Mean Corpuscular Hemoglobin 31.5 28.0-32.0 pg Mean Corpuscular Hemoglobin Concent 34.6 32.0-36.0 g/dL Red Cell Distribution Width 16.5 H 11.8-14.3 % Platelet Count 250 140-450 10^3/uL Mean Platelet Volume 7.3 6.9-10.8 fL Neutrophils (%) (Auto) 75.3 37.0-80.0 % Lymphocytes (%) (Auto) 16.7 10.0-50.0 % Monocytes (%) (Auto) 6.1 0.0-12.0 % Eosinophils (%) (Auto) 0.7 0.0-7.0 % Basophils (%) (Auto) 1.2 0.0-2.0 % Neutrophils # (Auto) 7.9 1.6-8.6 10 ^3/uL Lymphocytes # (Auto) 1.8 0.4-5.4 10 ^3/uL Monocytes # (Auto) 0.6 0-1.3 10 ^3/uL Eosinophils # (Auto) 0.1 0-0.8 10 ^3/uL Basophils # (Auto) 0.1 0-0.2 10 ^3/uL Nucleated Red Blood Cells 0.2 % Sodium Level 140 136-145 mmol/L Potassium Level 3.5 3.5-5.1 mmol/L Chloride Level 103 98-107 mmol/L Carbon Dioxide Level 32 H 20-31 mmol/L Anion Gap 5 5-15 Blood Urea Nitrogen 15 9-23 mg/dL Creatinine 0.98 0.700-1.30 mg/dL Glomerular Filtration Rate Calc 93 >90 mL/min BUN/Creatinine Ratio 15.3 10.0-20.0 Serum Glucose 160 H 74-106 mg/dL Lactic Acid Level 1.0 0.4-2.0 mmol/L Calcium Level 9.6 8.7-10.4 mg/dL Total Bilirubin 0.6 0.2-1.0 mg/dL Aspartate Amino Transferase (AST) 16 <34 U/L Alanine Aminotransferase (ALT) 17 7-40 U/L Alkaline Phosphatase 85 46-116 U/L B-Type Natriuretic Peptide 75.97 0-100 pg/mL Total Protein 6.4 5.7-8.2 g/dL Albumin 4.4 3.2-4.8 g/dL Lipase 34 12-53 U/L Current Medications Medications (Trade) Dose Ordered Sig/Isa Route Start Time Stop Time Status Last Admin Dexamethasone Sodium Phosphate (Decadron Injection) 10 mg ONCE ONCE IV 05/03/25 19:00 05/03/25 19:01 DC 05/03/25 19:00 Albuterol (Ventolin Medneb) 5 mg ONCE ONCE NEB 05/03/25 19:00 05/03/25 19:01 DC 05/03/25 20:17 Ipratropium [place] (Atrovent Medneb) 0.5 mg ONCE ONCE NEB 05/03/25 19:00 05/03/25 19:01 DC 05/03/25 20:17 X-Ray, Labs, Meds, VS Comment All studies performed the ED were evaluated by me personally. D-dimer was pending at time of this note. Serum laboratories were unremarkable for any definitive systemic concern. Chest x-ray confirmed vascular congestion and ca rdiomegaly which is expected due to his CHF concerns. Patient continued to require 4 L of O2 while at the facility. Every time we attempted to reduced from 4 L, patient's O2 saturation dipped into the high 80s. Patient will be admitted for acute respiratory distress. Patient's comorbidities will be managed while at the facility. Time of 1ST Reevaluation: 23:09 Reevaluation 1ST: Improved Consultation: PCP Patient Education/Counseling: Diagnosis, Treatment Family Education/Counseling: Diagnosis, Treatment, No Family Present SEPSIS Sepsis Screen Date sepsis recognized/suspect: May 03, 2025 Time Sepsis recognized/suspect: 1909 Recent Procedure: No On Antibiotic Therapy: No Respiratory Rate >20: No Heart Rate >90: No Temp<36 C (96.8 F) or >38.3 C: No SBP <90 or MAP <65 mmHG: No New Acute Mental Status Change: No Is the patient on CPAP, BIPAP,: No Physician Orders Heplock Iv (05/03/25 ) Continuous Ekg Monitoring 08,12,16,20,00,04 (05/03/25 18:50) Electrocardigram (05/03/25 18:50) Chest Portable (05/03/25 18:50) Albuterol Medneb (Ventolin Medneb) (05/03/25 23:15) Ipratropium Medneb (Atrovent Medneb) (05/03/25 23:15) Vital Signs Date Time Temp Pulse Resp B/P (MAP) Pulse Ox O2 Delivery O2 Flow Rate FiO2 05/03/25 22:35 98.2 80 18 125/82 (96) 97 98.2 05/03/25 20:16 98.1 76 20 154/82 (106) 97 98.1 05/03/25 20:16 76 20 2 Nasal Cannula* 2 28 05/03/25 20:00 80 05/03/25 19:10 99.1 81 25 181/112 (135) 99 99.1 Laboratory Tests Test 05/03/25 19:34 Lactic Acid Level 1.0 mmol/L (0.4-2.0) White Blood Count 10.5 10^3/uL (4.4-10.8) Medications Medications Dose Ordered Sig/Isa Route Start Time Stop Time Status Last Admin Dose Admin Albuterol 5 mg ONCE ONCE NEB 05/03/25 19:00 05/03/25 19:01 DC 05/03/25 20:17 Dexamethasone Sodium Phosphate 10 mg ONCE ONCE IV 05/03/25 19:00 05/03/25 19:01 DC 05/03/25 19:00 Ipratropium [place] 0.5 mg ONCE ONCE NEB 05/03/25 19:00 05/03/25 19:01 DC 05/03/25 20:17 Departure 1 Departure Time of Disposition: 23:10 Impression: Primary Impression: Acute respiratory distress Disposition: ADMITTED INPATIENT Condition: Fair Discharged With: Self Critical Care Note Critical Care Time?: No Stability Stability form required: No Heart Score Heart Score: Heart Score Response (Comments) Value History Slightly Suspicious 0 EKG Repolarization Disturb 1 Age 45-64 1 Risk Factors 1 or 2 risk factors 1 Troponin Normal limit 0 Total 3 I personally scribed for PHAM ELENA PAC ([email or web address]) on 05/03/25 at 19:32. Electronically submitted by Chucho Brand ([email or web address]). PHAM ELENA PAC May 03, 2025 19:32
[2025-05-03 19:42] LABS: Basophils # (auto) 0.1 10 ^3/uL (0-0.2); Basophils % (auto) 1.2 % (0.0-2.0); Eosinophils # (auto) 0.1 10 ^3/uL (0-0.8); Eosinophils % (auto) 0.7 % (0.0-7.0); Hematocrit 46.8 % (41.0-53.0); Hemoglobin 16.2 g/dL (13.5-17.5); Lymphocytes # (auto) 1.8 10 ^3/uL (0.4-5.4); Lymphocytes % (auto) 16.7 % (10.0-50.0); Mean Corpuscular Hemoglobin 31.5 pg (28.0-32.0); Mean Corpuscular Hgb Conc. 34.6 g/dL (32.0-36.0); Mean Corpuscular Volume 91.2 fL (80.0-100.0); Monocytes # (auto) 0.6 10 ^3/uL (0-1.3); Monocytes % (auto) 6.1 % (0.0-12.0); Neutrophils # (auto) 7.9 10 ^3/uL (1.6-8.6); Neutrophils % (auto) 75.3 % (37.0-80.0); Nucleated Red Blood Cells % 0.2 %; Platelet Count (auto) 250 10^3/uL (140-450); Red Blood Cells 5.13 10^6/uL (4.5-5.90); Red Cell Distribution Width 16.5 % (11.8-14.3); White Blood Cell 10.5 10^3/uL (4.4-10.8)
[2025-05-03 20:00] LABS: Alanine Aminotransferase 17 U/L (7-40); Albumin 4.4 g/dL (3.2-4.8); Alkaline Phosphatase 85 U/L (46-116); Anion Gap 5 (5-15); Aspartate Aminotransferase 16 U/L (<34); BUN/Creatinine Ratio 15.3 (10.0-20.0); Blood Urea Nitrogen 15 mg/dL (9-23); Calcium 9.6 mg/dL (8.7-10.4); Chloride 103 mmol/L (98-107); Lipase 34 U/L (12-53); Sodium 140 mmol/L (136-145); Total Protein 6.4 g/dL (5.7-8.2)
[2025-05-03 20:01] LABS: Bilirubin, Total 0.6 mg/dL (0.2-1.0)
[2025-05-03 20:16] VITALS: PULSE 76; RESP 20; O2SAT 2
[2025-05-03] MEDS: ALBUTEROL SULF 2.5 MG/0.5ML(0.5%) NEB SOLN NEB ONE ×2 (20:17→23:16)
[2025-05-03] MEDS: IPRATROPIUM BROM 0.5 MG/2.5ML INH SOL NEB ONE ×2 (20:17→23:16)
--- NOTE | 2025-05-03 20:41 | DVH ---
EXAM: XY CHEST PORTABLE TECHNIQUE: Single frontal chest radiograph CLINICAL HISTORY: Shortness of breath COMPARISON: XY CHEST PORTABLE on DOS: 01/19/25, XY CHEST PORTABLE on DOS: 01/18/25, XY CHEST PORTABLE on DOS: 01/16/25 Findings/Impression: Frontal chest radiograph demonstrates no acute osseous or superficial soft tissue abnormalities. The trachea is midline. Cardiomegaly. Right mid lung field atelectasis. Possible trace right pleural effusion. No pneumothorax.
[2025-05-03 20:54] LABS: Carbon Dioxide 32 mmol/L (20-31); Glucose 160 mg/dL (74-106); Potassium 3.5 mmol/L (3.5-5.1)
[2025-05-04] VITALS (13 sets, daily range): BP systolic 125; BP diastolic 82; PULSE 67–88; RESP 12–22; TEMP 98.2; O2SAT 94–99
[2025-05-04] MEDS ORDERED: DEXTROSE (50%) 50ML SYRG IV PRN (00:45)
[2025-05-04] MEDS ORDERED: ACETAMINOPHEN 325 MG TAB PO PRN (00:45)
[2025-05-04] MEDS ORDERED: ONDANSETRON HCL 4 MG/2 ML VIAL IV PRN (00:45)
[2025-05-04] MEDS: HYDROcodone-ACET 5/325MG TAB PO PRN (00:57)
[2025-05-04] MEDS: hydrALAZINE HCL 20 MG/ML VL IV PRN ×2 (01:00→20:57)
[2025-05-04] MEDS: ASPirin 81 mg TAB PO ONE (01:04)
--- NOTE | 2025-05-04 01:20 | DVHHP2 ---
History of Present Illness Reason for Visit: COPD with acute exacerbation History of Present Illness The patient is a 54-year-old male with multiple past medical history including CHF, COPD, DM, and hypertension who presented to [facility] ED with complaint of shortness of breaths. Patient reports he has been experiencing shortness of breaths for the past 1 day, unrelieved with oxygen at 2 L/min, increased work of breathing, getting worse that prompted this visit. Patient was seen and evaluated in the ED, laboratory data shows WBC 10.5, platelets 250, sodium 140, potassium 3.5, BUN 15, creatinine 0.98, GFR 93, glucose 160, calcium 9.6, lipase 34, troponin 22, D-dimer 1.32, BNP 75.97, blood pressure 181/112 trending down to 125/82, heart rate 80, temperature 98.2 F, O2 saturation 94% on oxygen. Patient was started on IV Solu-Medrol, in IV hydralazine, breathing treatment, please see medication orders section in the computer. On my assessment, patient denied chest pain, no headache, no dizziness, currently on oxygen, no diaphoresis, no nausea, no vomiting, no fever, no chills. Patient was admitted for further evaluation and medical management. Past Medical History CHF, COPD, DM, Gout, High Lipids, HTN Past Surgical History Denies all surgeries Family History Reviewed, noncontributory to the management of this case. Past Social History The patient lives at home, smokes cigarettes less than 1 pack per day, drinks alcohol occasionally, uses marijuana. Review of Systems Constitutional: No: Fever, Chills, Sweats, Weakness, Malaise, Other Eyes: No: Pain, Vision change, Conjunctivae inflammation, Eyelid inflammation, Other, Redness ENT: No: Ear pain, Ear discharge, Nose pain, Nose discharge, Nose congestion, Mouth pain, Mouth swelling, Throat pain, Throat swelling, Other Respiratory: Shortness of breath, SOB with excertion, Other (SOB at rest); No: Cough, Dry, Wheezing, Hemoptysis, Pleuritic Pain, Sputum, Wheezing Cardiovascular: No: Chest Pain, Palpitations, Orthopnea, Paroxysmal Noc. Dyspnea, Edema, Lt Headedness, Other Gastrointestinal: No: Nausea, Vomiting, Abdominal Pain, Diarrhea, Constipation, Melena, Hematochezia, Other Genitourinary: No Dysuria, No Frequency, No Incontinence, No Hematuria, No Retention, No Other Musculoskeletal: No: other, neck pain, shoulder pain, arm pain, back pain, hand pain, leg pain, foot pain Skin: No: Rash, Lesions, Jaundice, Bruising, Other Neurological: No: Weakness, Numbness, Incoordination, Change in speech, Confusion, Seizures, Other Allergies: Coded Allergies: NO KNOWN ALLERGIES (Unverified , 04/24/18) Medications Current Medications Medications Dose Ordered Sig/Isa Route Start Time Stop Time Status Last Admin Dose Admin Aspirin 81 mg DAILY PO 05/05/25 10:00 Methylprednisolone Sodium Succinate 40 mg Q8HR IV 05/04/25 06:00 Famotidine 20 mg Q12HR IV 05/04/25 10:00 Albuterol 2.5 mg Q4HPRN PRN NEB 05/04/25 00:45 Ipratropium [place] 0.5 mg Q4HPRN PRN NEB 05/04/25 00:45 Carvedilol 6.25 mg Q12HR PO 05/04/25 10:00 Duloxetine HCl 30 mg BID PO 05/04/25 10:00 Atorvastatin Calcium 10 mg HS PO 05/04/25 22:00 Hydralazine HCl 10 mg Q6HP PRN IV 05/04/25 00:45 Diagnostic Test (Pha) 1 strip ACHS 05/04/25 07:00 Insulin Human Regular HS SC 05/04/25 22:00 Insulin Human Regular AC SC 05/04/25 07:00 Dextrose 50 ml UD PRN IV 05/04/25 00:45 Sodium Chloride 10 ml Q8HR IV 05/04/25 06:00 Acetaminophen/ Hydrocodone Bitart 1 tab Q4HP PRN PO 05/04/25 00:45 05/04/25 00:57 1 TAB Ondansetron HCl 4 mg Q4HP PRN IV 05/04/25 00:45 Docusate Sodium 100 mg BIDPRN PRN PO 05/04/25 00:45 Acetaminophen 650 mg Q6HP PRN PO 05/04/25 00:45 Exam Vital Signs Vital Signs Date Time Temp Pulse Resp B/P (MAP) Pulse Ox O2 Delivery O2 Flow Rate FiO2 05/04/25 01:00 98.2 80 18 125/82 97 2.0 28 98.2 05/03/25 23:19 Nasal Cannula* General Appearance: Alert, Oriented X3, Cooperative, No acute distress HEENT: Atraumatic, PERRLA, EOMI, Mucous membr. moist/pink Respiratory: Normal air movement Cardiovascular: Regular rate, Normal S1, Normal S2, No murmurs Abdominal: Normal bowel sounds, Soft, No tenderness, No hepatospenomegaly, No masses Extremities: No clubbing, No cyanosis, No edema, Normal pulses, No tenderness/swelling Skin: No rashes, No breakdown, No significant lesion Neuro: Normal gait, Normal speech, Normal tone, Sensation intact, Cranial nerves 3-12 NL, Reflexes 2+ Psych/Mental Status: Mental status NL, Mood NL Labs/Xrays Labs Test 05/03/25 20:32 05/03/25 19:34 Range/Units Troponin I High Sensitivity 22 </=54 ng/L White Blood Count 10.5 4.4-10.8 10^3/uL Red Blood Count 5.13 4.5-5.90 10^6/uL Hemoglobin 16.2 13.5-17.5 g/dL Hematocrit 46.8 41.0-53.0 % Mean Corpuscular Volume 91.2 80.0-100.0 fL Mean Corpuscular Hemoglobin 31.5 28.0-32.0 pg Mean Corpuscular Hemoglobin Concent 34.6 32.0-36.0 g/dL Red Cell Distribution Width 16.5 H 11.8-14.3 % Platelet Count 250 140-450 10^3/uL Mean Platelet Volume 7.3 6.9-10.8 fL Neutrophils (%) (Auto) 75.3 37.0-80.0 % Lymphocytes (%) (Auto) 16.7 10.0-50.0 % Monocytes (%) (Auto) 6.1 0.0-12.0 % Eosinophils (%) (Auto) 0.7 0.0-7.0 % Basophils (%) (Auto) 1.2 0.0-2.0 % Neutrophils # (Auto) 7.9 1.6-8.6 10 ^3/uL Lymphocytes # (Auto) 1.8 0.4-5.4 10 ^3/uL Monocytes # (Auto) 0.6 0-1.3 10 ^3/uL Eosinophils # (Auto) 0.1 0-0.8 10 ^3/uL Basophils # (Auto) 0.1 0-0.2 10 ^3/uL Nucleated Red Blood Cells 0.2 % D-Dimer, Quantitative 1.32 H 0.0-0.49 mg/L FEU Sodium Level 140 136-145 mmol/L Potassium Level 3.5 3.5-5.1 mmol/L Chloride Level 103 98-107 mmol/L Carbon Dioxide Level 32 H 20-31 mmol/L Anion Gap 5 5-15 Blood Urea Nitrogen 15 9-23 mg/dL Creatinine 0.98 0.700-1.30 mg/dL Glomerular Filtration Rate Calc 93 >90 mL/min BUN/Creatinine Ratio 15.3 10.0-20.0 Serum Glucose 160 H 74-106 mg/dL Lactic Acid Level 1.0 0.4-2.0 mmol/L Calcium Level 9.6 8.7-10.4 mg/dL Total Bilirubin 0.6 0.2-1.0 mg/dL Aspartate Amino Transferase (AST) 16 <34 U/L Alanine Aminotransferase (ALT) 17 7-40 U/L Alkaline Phosphatase 85 46-116 U/L B-Type Natriuretic Peptide 75.97 0-100 pg/mL Total Protein 6.4 5.7-8.2 g/dL Albumin 4.4 3.2-4.8 g/dL Lipase 34 12-53 U/L PATIENT: SIMEON TAYLOR ACCT: [id number] UNIT: [id number] : 1970 LOC: ER ROOM / BED: / AGE / SEX: 54 / M ADM STATUS: REG ER SERVICE 185 ORDERING PHYSICIAN: PHAM ELENA PAC PROCEDURE(s): CXRP - CHEST PORTABLE REASON: Shortness of breath ORDER NUMBER(s): [id number], ACCESSION NUMBER(s): [id number] EXAM: XY CHEST PORTABLE TECHNIQUE: Single frontal chest radiograph CLINICAL HISTORY: Shortness of breath COMPARISON: XY CHEST PORTABLE on DOS: 01/19/25, XY CHEST PORTABLE on DOS: 01/18/25, XY CHEST PORTABLE on DOS: 01/16/25 Findings/Impression: Frontal chest radiograph demonstrates no acute osseous or superficial soft tissue abnormalities. The trachea is midline. Cardiomegaly. Right mid lung field atelectasis. Possible trace right pleural effusion. No pneumothorax. Assessment/Plan Assessment/Plan COPD with acute exacerbation Elevated D-dimer Hypertensive urgency Diabetes mellitus with hyperglycemia Plan 1. Admit to telemetry unit 2. Breathing treatment 3. Pain control management 4. Management of fluids and electrolytes 5. Consultation for hospitalist 6. Diagnostic tests chest x-ray 7. DVT prophylaxis-on aspirin 8. Repeat labs CBC, CMP in a.m. 9. Continue with current medical management 10. Treatment plan discussed with patient and RN. Patient verbalized under standing. Plan discussed with: Patient, Other (R.N.) My Orders Orders - YVONNE ORANTES DNP Procedure Category Date Status Time Complete Blood Count LAB 05/04/25 Logged 04:00 Comprehensive LAB 05/04/25 Logged Metabolic Panel 04:00 Consistent DIET 05/04/25 Transmitted Carb(Ccho)Diabetes Breakfast Methylprednisolone PHA 05/04/25 In Process Sod Succ (Solu Medrol 06:00 Famotidine Injection PHA 05/04/25 In Process (Pepcid Injection) 10:00 Albuterol Medneb PHA 05/04/25 In Process (Ventolin Medneb) 00:45 Ipratropium Medneb PHA 05/04/25 In Process (Atrovent Medneb) 00:45 Carvedilol Tablet PHA 05/04/25 In Process (Coreg Tablet) 10:00 Duloxetine Hcl PHA 05/04/25 In Process Capsule (Cymbalta 10:00 Atorvastatin (Lipitor) PHA 05/04/25 In Process 22:00 Hydralazine Injection PHA 05/04/25 In Process (Apresoline Inject 00:45 Glucose Blood PHA 05/04/25 In Process (Accu-Chek Comfort 07:00 Insulin R (Human) PHA 05/04/25 In Process (Insulin R) 22:00 Insulin R (Human) PHA 05/04/25 In Process (Insulin R) 07:00 Dextrose 50% Syringe PHA 05/04/25 In Process 00:45 Allergies MANOJ 05/04/25 In Process 00:38 Code Status CODE 05/04/25 Transmitted 00:38 Sodium Chloride Lock PHA 05/04/25 In Process (Saline Lock Ns) 06:00 Oxygen Per Hour RT 05/04/25 Transmitted 00:38 Hydrocodone-Acet PHA 05/04/25 In Process 5/325mg Tab ([place] 00:45 Ondansetron Hcl PHA 05/04/25 In Process (Zofran) 00:45 Docusate Sodium PHA 05/04/25 In Process Capsule ([place]ace 00:45 Complete Blood Count LAB 05/05/25 Verified 04:00 Comprehensive LAB 05/05/25 Verified Metabolic Panel 04:00 Condition: Serious MANOJ 05/04/25 In Process 00:38 Acetaminophen Tablet PHA 05/04/25 In Process (Tylenol Tablet) 00:45 Bedrest With Bathroom MANOJ 05/04/25 In Process Privileg 00:38 Sequential MANOJ 05/04/25 In Process Compression Device Echo 2d Mode Cardiac US 05/04/25 Logged DOP 00:45 Aspirin Tablet PHA 05/05/25 In Process 10:00 Admit ADMIT 05/04/25 Verified 01:18 Nitroglycerin [facility] 05/04/25 Verified Sublingual (Ntrostat 01:30 Morphine Sulfate PHA 05/04/25 Verified Injection 01:30 Stat Ekg For Chest [facility] 05/04/25 Verified Pain 01:18 Notify Md Of Changes [facility] 05/04/25 Verified From Base 01:18 Sewing Inspector For [facility] 05/04/25 Verified 24 Hours 01:18 Emergency Dysrhythmia [facility] 05/04/25 Verified Protocol 01:18 Rhythm Strips Once [facility] 05/04/25 Verified Every Shift 01:18 Oxygen By Nasal RT 05/04/25 Verified Cannula 01:18 Problem List: (1) COPD with acute exacerbation (2) Elevated d-dimer (3) Hypertensive urgency (4) Diabetes mellitus with hyperglycemia Date of Service: May 04, 2025 Billing Provider: YVONNE ORANTES DNP Common Visit Codes: [id number] INP/OBS CARE (HIGH) YVONNE ORANTES DNP May 04, 2025 01:20
[2025-05-04] MEDS ORDERED: NITROGLYCERIN 0.4 MG SL TAB SL PRN (01:30)
[2025-05-04] MEDS ORDERED: MORPHINE SULFATE INJ 2 MG/ml SYRG IV PRN (01:30)
[2025-05-04] MEDS: IPRATROPIUM BROM 0.5 MG/2.5ML INH SOL NEB PRN (05:18)
[2025-05-04] MEDS: ALBUTEROL SULF 2.5 MG/0.5ML(0.5%) NEB SOLN NEB PRN (05:18)
[2025-05-04] MEDS: NICOTINE 21MG/24 HR TOPICAL PATCH TD SCH (05:20)
[2025-05-04] MEDS: methylPREDNISolone SOD SUCC 40 MG/ML VL IV SCH (05:20)
[2025-05-04] MEDS: SODIUM CHLOR 0.9% PF (SALINE LOCK) 10ML VIAL/SYR IV SCH (05:21)
[2025-05-04 06:06] LABS: Basophils # (auto) 0 10 ^3/uL (0-0.2); Basophils % (auto) 0.3 % (0.0-2.0); Eosinophils # (auto) 0 10 ^3/uL (0-0.8); Eosinophils % (auto) 0.1 % (0.0-7.0); Hematocrit 50.1 % (41.0-53.0); Hemoglobin 17.2 g/dL (13.5-17.5); Lymphocytes # (auto) 0.6 10 ^3/uL (0.4-5.4); Lymphocytes % (auto) 7.9 % (10.0-50.0); Mean Corpuscular Hemoglobin 31.6 pg (28.0-32.0); Mean Corpuscular Hgb Conc. 34.4 g/dL (32.0-36.0); Monocytes # (auto) 0.1 10 ^3/uL (0-1.3); Monocytes % (auto) 0.8 % (0.0-12.0); Neutrophils # (auto) 6.6 10 ^3/uL (1.6-8.6); Neutrophils % (auto) 90.9 % (37.0-80.0); Nucleated Red Blood Cells % 0.1 %; Platelet Count (auto) 223 10^3/uL (140-450); Red Blood Cells 5.45 10^6/uL (4.5-5.90); Red Cell Distribution Width 16.3 % (11.8-14.3); White Blood Cell 7.2 10^3/uL (4.4-10.8)
[2025-05-04 06:18] LABS: Alanine Aminotransferase 25 U/L (7-40); Albumin 4.6 g/dL (3.2-4.8); Alkaline Phosphatase 99 U/L (46-116); Anion Gap 9 (5-15); Aspartate Aminotransferase 30 U/L (<34); BUN/Creatinine Ratio 12.8 (10.0-20.0); Blood Urea Nitrogen 11 mg/dL (9-23); Calcium 9.9 mg/dL (8.7-10.4); Carbon Dioxide 25 mmol/L (20-31); Chloride 103 mmol/L (98-107); Potassium 3.8 mmol/L (3.5-5.1); Sodium 137 mmol/L (136-145); Total Protein 6.9 g/dL (5.7-8.2)
[2025-05-04 06:19] LABS: Bilirubin, Total 0.6 mg/dL (0.2-1.0)
[2025-05-04 06:24] LABS: Glucose 174 mg/dL (74-106)
[2025-05-04] MEDS: InsuLIN REG 1unit/0.01ml Soln (100units/ml) SC SCH ×2 (06:28→23:35)
[2025-05-04] MEDS: ACCU-CHEK COMFORT CURVE STRIP VI SCH (06:33)
--- NOTE | 2025-05-04 06:53 | DVH ---
EXAM: CT Chest Without Intravenous Contrast CLINICAL INDICATION: Pain TECHNIQUE: Axial computed tomography images of the chest without intravenous contrast. This CT exam was performed using one or more of the following dose reduction techniques: automated exposure cont rol, adjustment of the mA and/or kV according to patient size, and/or use of iterative reconstruction technique. COMPARISON: No relevant prior studies available. FINDINGS: LUNGS AND PLEURAL SPACES: Mild lung emphysema. Bibasilar atelectasis. Otherwise, no suspicious foc al consolidation or pulmonary nodule. No significant effusion. No pneumothorax. HEART: Unremarkable. No cardiomegaly. No significant pericardial effusion. No significant coronar y artery calcifications. MEDIASTINUM: A few prominent mediastinal lymph nodes measuring up to 6 mm. Small esophageal hiatal hernia. BONES/JOINTS: Unremarkable. No acute fracture. SOFT TISSUES: Unremarkable. VASCULATURE: Unremarkable. No thoracic aortic aneurysm. LYMPH NODES: See above. IMPRESSION: 1. Small esophageal hiatal hernia. 2. Mild lung emphysema. Bibasilar atelectasis. Otherwise, no suspicious focal consolidation or pul monary nodule.
[2025-05-04] MEDS: ALBUTEROL SULF 2.5 MG/0.5ML(0.5%) NEB SOLN NEB SCH (09:25)
[2025-05-04] MEDS: IPRATROPIUM BROM 0.5 MG/2.5ML INH SOL NEB SCH (09:26)
[2025-05-04 09:40] LABS: Urine Bacteria None Seen /hpf (None Seen)
[2025-05-04 09:56] LABS: Urine Blood Negative /uL (Negative); Urine Clarity Clear (Clear); Urine Color Light-Yellow (Yellow); Urine Protein, UAD Negative (Negative); Urine Specific Gravity 1.011 (1.001-1.035); Urine Squamous Epithelial Cell None Seen /hpf (<5); Urine Urobilinogen Normal (Negative); Urine WBC 1 /HPF (0-3)
[2025-05-04] MEDS: CARVEDILOL 3.125 MG TAB PO SCH (09:59)
[2025-05-04] MEDS: DULoxetine HCL 30 MG CAP PO SCH (09:59)
--- NOTE | 2025-05-04 09:59 | DVH ---
Bilateral lower extremity venous duplex Clinical History: r/o dvt Comparison: US BILAT LOWER DVT on DOS: 06/14/24 Technique: Duplex doppler evaluation of the deep venous systems of both lower extremities from the common femora l veins to the popliteal veins including color doppler and spectral/pulsed waveform analysis was perf ormed. Findings: RIGHT SIDE: The common femoral vein demonstrates appropriate compressibility and waveform variability. There is compressibility/patency of the great saphenous vein at the proximal thigh. The femoral vein demonstrates appropriate compressibility and waveform variability. The deep femoral vein demonstrates appropriate compressibility and waveform variability. The popliteal vein demonstrates appropriate compressibility and waveform variability. There is normal compressibility at the tibioperoneal trunk. LEFT SIDE: The common femoral vein demonstrates appropriate compressibility and waveform variability. There is compressibility/patency of the great saphenous vein at the proximal thigh. The femoral vein demonstrates appropriate compressibility and waveform variability. The deep femoral vein demonstrates appropriate compressibility and waveform variability. The popliteal vein demonstrates appropriate compressibility and waveform variability. There is normal compressibility at the tibioperoneal trunk. Impression: 1. No right or left femoropopliteal venous thrombosis.
[2025-05-04] MEDS ORDERED: FAMOTIDINE (10MG/ML) 2ML VL IV SCH (10:00)
[2025-05-04] MEDS ORDERED: ALBUTEROL SULF 2.5 MG/0.5ML(0.5%) NEB SOLN NEB SCH (10:00)
[2025-05-04 10:05] LABS: Opiate Scree,Urine Neg (NEGATIVE)
[2025-05-04 10:06] LABS: Cannabinoid Screen, Urine Pos (NEGATIVE)
[2025-05-04 10:08] LABS: Amphetamine Screen, Urine Neg (NEGATIVE); Barbiturate Scree,Urine Neg (NEGATIVE); Benzodiazephine Screen, Urine Neg (NEGATIVE); Cocaine Screen, Urine Neg (NEGATIVE); Phencyclidine Screen, Urine Neg (NEGATIVE)
[2025-05-04] MEDS: LISINOPRIL 5 MG TAB PO ONE (10:30)
[2025-05-04 11:40] LABS: COVID19 ANTIGEN SOFIA FIA NEGATIVE (NEGATIVE)
[2025-05-04 11:41] LABS: Rapid Influenza A Negative (Negative); Rapid Influenza B Negative (Negative)
[2025-05-04 14:39] LABS: T3 Total 0.78 ng/mL (0.60-1.81)
[2025-05-04 14:45] LABS: Free T4 (Free Thyroxine) 1.11 ng/dL (0.89-1.76)
--- NOTE | 2025-05-04 15:02 | DVHPNRES ---
Progress Note Date Seen: May 04, 2025 Resident Creating Document: KYLE RM RESIDENT Medical Necessity Reason Pt with a Central, PICC or Fol: No Subjective Review of Systems Mr Morales is a 53-year-old male with PMHx of diabetes mellitus type 2, CAD status post PCI 3 years back, heart failure with preserved ejection fraction, COPD on 2 L home oxygen and CPAP at night, diverticulosis, history of sigmoiditis and internal hemorrhoids, dyslipidemia, and polysubstance dependence who presents to the ER with a chief complaint of shortness of breath lower extremity edema for a week. Patient lives with a his landlord and he is currently not taking his GDMT especially Lasix as he can go to the bathroom, given the bathroom is being renovated. He started to experience shortness of breaths, along with lower extremity edema, increased his oxygen from 2-4 L which did not improve his symptoms and therefore he decided to come to the ER. Patient reports orthopnea, PND. Denies chest pain, recent travel history, immobilization or recent surgery. Past medical/surgical history: CAD (Status post PTCA 3 years back which was unremarkable at [facility]), CHF (With preserved ejection fraction, last known LVEF 55% in July 08), HTN, hyperipidemia, COPD (On 2-3 L home oxygen, uses CPAP at nighttime), Pneumonia, Diverticulosis, GI bleed (History of upper GI bleed), Hemorrhoids (Internal hemorrhoids), Other (Sigmoiditis seen on colonoscopy 07/08), type 2 diabetes on glipizide Social history: Shares a room with [facility], quit smoking 1 year back, drinks socially, denies illicit drug use. Patient seen and examined at bedside. Has bilateral crackles up to mid lung field, pitting edema bilaterally. Objective vital signs Vital Sign Date Time Temp Pulse Resp B/P (MAP) Pulse Ox O2 Delivery O2 Flow Rate FiO2 05/04/25 13:56 84 19 97 05/04/25 13:46 Nasal Cannula* 2 28 05/04/25 12:41 180/118 05/04/25 07:42 97.3 97.3 medications Current Medications Medications Dose Ordered Sig/Isa Route Start Time Stop Time Status Last Admin Dose Admin Aspirin 81 mg DAILY PO 05/05/25 10:00 Carvedilol 6.25 mg Q12HR PO 05/04/25 10:00 05/04/25 09:59 6.25 MG Duloxetine HCl 30 mg BID PO 05/04/25 10:00 05/04/25 09:59 30 MG Diagnostic Test (Pha) 1 strip ACHS 05/04/25 07:00 05/04/25 11:57 1 STRIP Insulin Human Regular HS SC 05/04/25 22:00 Insulin Human Regular AC SC 05/04/25 07:00 05/04/25 12:03 6 UNITS Dextrose 50 ml UD PRN IV 05/04/25 00:45 Sodium Chloride 10 ml Q8HR IV 05/04/25 06:00 05/04/25 14:15 10 ML Acetaminophen/ Hydrocodone Bitart 1 tab Q4HP PRN PO 05/04/25 00:45 05/04/25 11:04 1 TAB Ondansetron HCl 4 mg Q4HP PRN IV 05/04/25 00:45 Docusate Sodium 100 mg BIDPRN PRN PO 05/04/25 00:45 Acetaminophen 650 mg Q6HP PRN PO 05/04/25 00:45 Nitroglycerin 0.4 mg Q5MINP PRN SL 05/04/25 01:30 Morphine Sulfate 2 mg Q30M PRN IV 05/04/25 01:30 Nicotine 1 patch DAILY TD 05/04/25 10:00 05/04/25 05:20 1 PATCH Ipratropium [place] 0.5 mg Q4HWA NEB 05/04/25 10:00 05/04/25 13:45 0.5 MG Albuterol 2.5 mg Q4HWA NEB 05/04/25 10:00 05/04/25 13:46 2.5 MG Lisinopril 10 mg DAILY PO 05/05/25 10:00 Furosemide 40 mg BIDD IV 05/04/25 18:00 Chlorthalidone 25 mg DAILY@BREAKFAST PO 05/05/25 08:00 UNV Atorvastatin Calcium 40 mg HS PO 05/04/25 22:00 UNV Hydralazine HCl 10 mg Q6HP PRN IV 05/04/25 14:15 UNV Ergocalciferol 50,000 unit Q7D PO 05/04/25 14:15 UNV Allopurinol 100 mg DAILY PO 05/05/25 10:00 UNV Tamsulosin HCl 0.4 mg QPM PO 05/04/25 18:00 UNV Examination Obese male patient lying comfortably in the bed in ER, no acute distress General: Obese, afebrile, palor, mucosae are moist Cardiovascular: Regular S1 and S2. No murmurs, gallops or rubs. No JVD elevation. Bilateral pitting edema 3+ Respiratory: Bilateral inspiratory crackles heard on auscultation up to mid to upper lung roque, no wheezing heard. Abdomen: Soft, nontender, nondistended, normoactive bowel sounds, no rebound tenderness, no organomegaly, no masses Genitourinary: Deferred MSK/skin: Mobilizes 4 limbs. Skin is dry and warm Neurological: No motor, no sensitive deficits, normal speech. Pupils are isocoric and reactive. Psych/Mental Status: A/Ox3 laboratory and microbiology Laboratory Tests 05/04/25 05:38 Test 05/04/25 05:38 Range/Units Serum Glucose 174 H 74-106 mg/dL Labs and/or images reviewed: Labs reviewed by me, Image(s) reviewed by me Problem List/Assessment/Plan Problem List/Assessment/Plan Acute on chronic heart failure with preserved ejection fraction exacerbation- NYHA class 3-secondary to noncompliance Acute hypoxic respiratory failure on chronic hypoxic respiratory failure secondary Hypertensive urgency Last known echo 06/15/2024 showed LVEF 55% Chest x-ray reviewed shows cardiomegaly, bilateral pulmonary vascular congestion along with fluid in the in the lobar fissure on the right side IV Lasix 40 mg b.i.d. daily, Coreg b.i.d. Fluid restriction to 1500 mL per day Strict I&Os Continue oxygen supplementation via NC Increase lisinopril to 10 mg daily, started chlorthalidone 25 mg daily P.r.n. hydralazine for systolic blood pressure more than 170 BNP 75, tropes unremarkable CT chest shows Small esophageal hiatal hernia. Mild lung emphysema. Bibasilar atelectasis. Otherwise, no suspicious focal consolidation or pulmonary nodule. Echocardiogram pending COPD-no exacerbation-on home oxygen Currently on 2.5 L, satting 93% 1 dose of Solu-Medrol 40 mg by admitting Continue nebulized treatment with levalbuterol and ipratropium q.6 hour Type 2 diabetes mellitus-A1c 5.4 Moderate ISS Carbohydrate and cardiac diet Ruled out DVT Lower extremity Doppler unremarkable Hepatomegaly and hepatic steatosis - probably due to KEANE Monitor Probable obstructive sleep apnea Patient uses CPAP at night CPAP at nighttime Chronic alcohol dependence - CIWA 2 Monitor for withdrawal Follow up with follow up level History of PTCA 3 years back - unremarkable Continue home dose of aspirin 81 mg p.o. daily and atorvastatin 40 mg HS daily History of sigmoiditis and internal hemorrhoids Monitor Dyslipidemia Continue atorvastatin 40 mg bedtime Chronic back pain Continue home medication duloxetine History of polysubstance dependence Cannabis dependence Counseled regarding cessation for more than 20 minutes Morbid obesity Counseled regarding healthy lifestyle habits for more than 20 minutes GERD prophylaxis Pantoprazole 40 mg p.o. daily Lovenox 40 mg sc daily Plan discussed with patient in which all questions have been answered Goals of care discussed with the patient for more than 20 minutes, full code status Case discussed with Dr. Sampson Plan discussed with: Patient My Orders My Orders Orders - KYLE RM RESIDENT Procedure Category Date Status Time Bilat Lower Dvt US 05/04/25 Resulted 08:53 Ipratropium Medneb PHA 05/04/25 In Process (Atrovent Medneb) 10:00 Albuterol Medneb PHA 05/04/25 In Process (Ventolin Medneb) 10:00 Lisinopril Tablet PHA 05/05/25 In Process (Zestril Tablet) 10:00 Furosemide Injection PHA 05/04/25 In Process (Lasix Injection) 18:00 Chlorthalidone PHA 05/04/25 Logged (Chlorthalidone) 14:15 Chlorthalidone PHA 05/05/25 Logged (Chlorthalidone) 08:00 Atorvastatin (Lipitor) PHA 05/04/25 Logged 22:00 Hydralazine Injection PHA 05/04/25 Logged (Apresoline Inject 14:15 Cyanocobalamin PHA 05/04/25 Logged Injection (Vitamin 14:15 Ergocalciferol PHA 05/04/25 Logged (Vitamin D 50,000 14:15 Allopurinol Tablet PHA 05/05/25 Logged (Zyloprim Tablet) 10:00 Tamsulosin PHA 05/04/25 Logged Hydrochloride (Flomax) 18:00 Maintain Fluid MANOJ 05/04/25 In Process Restrictions 14:11 Strict I & O MANOJ 05/04/25 In Process 14:11 Consistent DIET 05/04/25 Transmitted Carb(Ccho)Diabetes Dinner Date of Service: May 04, 2025 Billing Provider: JANNETTE LAM MD Common Visit Codes: [id number] INP/OBS CARE(HIGH) KYLE RM RESIDENT May 04, 2025 15:02 JANNETTE LAM MD May 07, 2025 10:07
[2025-05-04] MEDS: CYANOCOBALAMIN (B-12) 1000 MCG/1 ML VIAL SUBCUT ONE (15:55)
[2025-05-04] MEDS: CHLORTHALIDONE 25 MG TAB PO ONE (15:55)
[2025-05-04] MEDS: ERGOCALCIFEROL 50,000 UNIT(1.25MG) CAP PO SCH (15:55)
[2025-05-04] MEDS: DOCUSATE SOD 100 MG CAP PO PRN (17:07)
[2025-05-04] MEDS: TAMSULOSIN HYDROCHLORIDE 0.4 MG CAP PO SCH (18:11)
[2025-05-04] MEDS: FUROSEMIDE 40 MG/4 ML VIAL IV SCH (18:12)
--- NOTE | 2025-05-04 19:38 | DVHSR ---
APPROVED REPORT EXAM: LIMITED Two-dimensional and M-mode echocardiogram with Doppler and color Doppler. Blood Pressure: 178/113 mmHg INDICATION Dyspnea Hiistory of CHF RISK FACTORS Obesity: Height: 5' 8", Weight: 260 DIMENSIONS LVDd5.9 (3.8-5.7cm)LA (2D)4.4 (1.9-4.0cm)Aortic Root3.0 (2.0-3.7cm) LVDs4.1 (2.5-4.0cm)LA (MM) (1.9-4.0cm)Aortic Cusp Exc1.8 (1.5-2.0cm) EF (%) 55.0 (55-70%)Rt. Atrium4.4 (1.9-4.0cm)Asc. Aorta cm IVSd1.0 (0.7-1.1cm)RV (D) (1.8-2.4cm) PWd0.9 (0.7-1.1cm) Mitral Valve MitralMitral Stenosis E wave0.90m/sMV Mean GR.mmHg A wave1.00m/sMV Peak GR.mmHg E/A ratio0.92D MVAcm2 Aortic Valve Aortic ValveAortic Stenosis V11.20m/[place] Mean GR.5mmHg V21.40m/[place] Peak GR.9mmHg LVOT Diameter2.4 (1.8-2.4cm)Doppler AVA3.88cm2 Other Information Quality : Technically LimitedRhythm : Technically limited study due to body habitus. Conclusion LVEF 50-55%, mild diastolic dysfunction Mild left and right atrial dilation
[2025-05-04] MEDS ORDERED: ATORVASTATIN 20 MG TAB PO SCH ×2 (22:00)
[2025-05-04] MEDS ORDERED: InsuLIN REG 1unit/0.01ml Soln (100units/ml) SC SCH (22:00)
[2025-05-04] MEDS: ATORVASTATIN 20 MG TAB PO SCH (22:52)
[2025-05-05] VITALS (19 sets, daily range): BP systolic 114–152; BP diastolic 69–102; PULSE 49–86; RESP 16–20; TEMP 97.5–98; O2SAT 93–99
[2025-05-05 07:48] LABS: Basophils # (auto) 0 10 ^3/uL (0-0.2); Eosinophils # (auto) 0 10 ^3/uL (0-0.8); Lymphocytes # (auto) 1.1 10 ^3/uL (0.4-5.4); Mean Corpuscular Hgb Conc. 34.3 g/dL (32.0-36.0); Nucleated Red Blood Cells % 0.1 %
[2025-05-05 07:52] LABS: Basophils % (auto) 0.2 % (0.0-2.0); Hematocrit 50.9 % (41.0-53.0); Hemoglobin 17.5 g/dL (13.5-17.5); Mean Corpuscular Hemoglobin 31.2 pg (28.0-32.0); Mean Corpuscular Volume 90.8 fL (80.0-100.0); Monocytes # (auto) 0.7 10 ^3/uL (0-1.3); Monocytes % (auto) 5.2 % (0.0-12.0); Neutrophils # (auto) 12.3 10 ^3/uL (1.6-8.6); Neutrophils % (auto) 86.6 % (37.0-80.0); Platelet Count (auto) 271 10^3/uL (140-450); Red Cell Distribution Width 16.7 % (11.8-14.3); White Blood Cell 14.2 10^3/uL (4.4-10.8)
[2025-05-05 08:10] LABS: Alanine Aminotransferase 19 U/L (7-40); Albumin 4.6 g/dL (3.2-4.8); Alkaline Phosphatase 87 U/L (46-116); Anion Gap 10 (5-15); Aspartate Aminotransferase 17 U/L (<34); BUN/Creatinine Ratio 17.3 (10.0-20.0); Blood Urea Nitrogen 17 mg/dL (9-23); Carbon Dioxide 29 mmol/L (20-31); Chloride 100 mmol/L (98-107); Sodium 139 mmol/L (136-145)
[2025-05-05 08:11] LABS: Bilirubin, Total 0.7 mg/dL (0.2-1.0)
[2025-05-05 08:27] LABS: Calcium 10.6 mg/dL (8.7-10.4); Glucose 127 mg/dL (74-106); Potassium 3.5 mmol/L (3.5-5.1)
[2025-05-05 08:49] LABS: Magnesium 1.6 mg/dL (1.6-2.6)
[2025-05-05] MEDS: CHLORTHALIDONE 25 MG TAB PO SCH (09:58)
[2025-05-05] MEDS: ASPirin 81 mg TAB PO SCH (09:59)
[2025-05-05] MEDS: ALLOPURINOL 100 MG TAB PO SCH (10:00)
[2025-05-05] MEDS: LISINOPRIL 5 MG TAB PO SCH (10:01)
--- NOTE | 2025-05-05 15:32 | DVHPNRES ---
Progress Note Date Seen: May 05, 2025 Resident Creating Document: REN FIGUEROA RESIDENT Medical Necessity Reason Pt with a Central, PICC or Fol: No Subjective Review of Systems Patient seen and examined at bedside. Has bilateral crackles up to mid lung field, pitting edema bilaterally. Objective vital signs Vital Sign Date Time Temp Pulse Resp B/P (MAP) Pulse Ox O2 Delivery O2 Flow Rate FiO2 05/05/25 14:17 70 16 98 05/05/25 14:11 Nasal Cannula* 2 28 05/05/25 12:30 97.8 131/91 (104) 97.8 Total Intake and Output 05/04/25 05/04/25 05/05/25 15:00 23:00 07:00 Intake Total 250 ml Balance 250 ml medications Current Medications Medications Dose Ordered Sig/Isa Route Start Time Stop Time Status Last Admin Dose Admin Aspirin 81 mg DAILY PO 05/05/25 10:00 05/05/25 09:59 81 MG Carvedilol 6.25 mg Q12HR PO 05/04/25 10:00 05/05/25 10:00 6.25 MG Duloxetine HCl 30 mg BID PO 05/04/25 10:00 05/05/25 09:58 30 MG Insulin Human Regular HS SC 05/04/25 22:00 Cancel Dextrose 50 ml UD PRN IV 05/04/25 00:45 Sodium Chloride 10 ml Q8HR IV 05/04/25 06:00 05/05/25 13:09 10 ML Acetaminophen/ Hydrocodone Bitart 1 tab Q4HP PRN PO 05/04/25 00:45 05/05/25 15:27 1 TAB Ondansetron HCl 4 mg Q4HP PRN IV 05/04/25 00:45 Docusate Sodium 100 mg BIDPRN PRN PO 05/04/25 00:45 05/04/25 17:07 100 MG Acetaminophen 650 mg Q6HP PRN PO 05/04/25 00:45 Nitroglycerin 0.4 mg Q5MINP PRN SL 05/04/25 01:30 Morphine Sulfate 2 mg Q30M PRN IV 05/04/25 01:30 Nicotine 1 patch DAILY TD 05/04/25 10:00 05/05/25 10:02 1 PATCH Ipratropium [place] 0.5 mg Q4HWA NEB 05/04/25 10:00 05/05/25 14:11 0.5 MG Albuterol 2.5 mg Q4HWA NEB 05/04/25 10:00 05/05/25 14:11 2.5 MG Lisinopril 10 mg DAILY PO 05/05/25 10:00 05/05/25 10:01 10 MG Furosemide 40 mg BIDD IV 05/04/25 18:00 05/05/25 05:52 40 MG Chlorthalidone 25 mg DAILY@BREAKFAST PO 05/05/25 08:00 05/05/25 09:58 25 MG Hydralazine HCl 10 mg Q6HP PRN IV 05/04/25 14:15 05/04/25 20:57 10 MG Ergocalciferol 50,000 unit Q7D PO 05/04/25 14:15 05/04/25 15:55 50,000 UNIT Allopurinol 100 mg DAILY PO 05/05/25 10:00 05/05/25 10:00 100 MG Tamsulosin HCl 0.4 mg QPM PO 05/04/25 18:00 05/04/25 18:11 0.4 MG Atorvastatin Calcium 40 mg HS PO 05/04/25 22:00 05/04/25 22:52 40 MG Diagnostic Test (Pha) 1 strip HS 05/05/25 22:00 Insulin Human Regular HS SC 05/05/25 22:00 Examination General: Obese, afebrile, palor, mucosae are moist Cardiovascular: Regular S1 and S2. No murmurs, gallops or rubs. No JVD elevation. Bilateral pitting edema 3+ Respiratory: Bilateral inspiratory crackles heard on auscultation up to mid to upper lung roque, no wheezing heard. Abdomen: Soft, nontender, nondistended, normoactive bowel sounds, no rebound tenderness, no organomegaly, no masses Genitourinary: Deferred MSK/skin: Mobilizes 4 limbs. Skin is dry and warm Neurological: No motor, no sensitive deficits, normal speech. Pupils are isocoric and reactive. Psych/Mental Status: A/Ox3. laboratory and microbiology Laboratory Tests 05/05/25 06:50 Test 05/05/25 06:50 Range/Units Serum Glucose 127 H 74-106 mg/dL Problem List/Assessment/Plan Problem List/Assessment/Plan Acute on chronic heart failure with preserved ejection fraction exacerbation- NYHA class 3-secondary to noncompliance Acute hypoxic respiratory failure on chronic hypoxic respiratory failure secondary Hypertensive urgency Last known echo 06/15/2024 showed LVEF 55% Chest x-ray reviewed shows cardiomegaly, bilateral pulmonary vascular congestion along with fluid in the in the lobar fissure on the right side IV Lasix 40 mg b.i.d. daily, Coreg b.i.d. Fluid restriction to 1500 mL per day Strict I&Os Continue oxygen supplementation via NC Increase lisinopril to 10 mg daily, started chlorthalidone 25 mg daily P.r.n. hydralazine for systolic blood pressure more than 170 BNP 75, tropes unremarkable CT chest shows Small esophageal hiatal hernia. Mild lung emphysema. Bibasilar atelectasis. Otherwise, no suspicious focal consolidation or pulmonary nodule. Echocardiogram pending COPD-no exacerbation-on home oxygen Currently on 2.5 L, satting 93% 1 dose of Solu-Medrol 40 mg by admitting Continue nebulized treatment with levalbuterol and ipratropium q.6 hour Type 2 diabetes mellitus-A1c 5.4 Moderate ISS Carbohydrate and cardiac diet Ruled out DVT Lower extremity Doppler unremarkable Hepatomegaly and hepatic steatosis - probably due to KEANE Monitor Probable obstructive sleep apnea Patient uses CPAP at night CPAP at nighttime Chronic alcohol dependence - CIWA 2 Monitor for withdrawal Follow up with follow up level History of PTCA 3 years back - unremarkable Continue home dose of aspirin 81 mg p.o. daily and atorvastatin 40 mg HS daily History of sigmoiditis and internal hemorrhoids Monitor Dyslipidemia Continue atorvastatin 40 mg bedtime Chronic back pain Continue home medication duloxetine History of polysubstance dependence Cannabis dependence Counseled regarding cessation for more than 20 minutes Morbid obesity Counseled regarding healthy lifestyle habits for more than 20 minutes GERD prophylaxis Pantoprazole 40 mg p.o. daily Lovenox 40 mg sc daily Goals of care discussed with the patient for 21 minutes, full code status Case discussed with Dr. Andrade Plan discussed with: Patient My Orders My Orders Orders - REN FIGUEROA Procedure Category Date Status Time Cardiac DIET 05/05/25 Transmitted Diet-2gna,Lofat,Lochol Lunch Date of Service: May 05, 2025 Billing Provider: TERESITA ANDRADE MD Common Visit Codes: [id number] INP/OBS CARE(HIGH) REN FIGUEROA RESIDENT May 05, 2025 15:32 TERESITA ANDRADE MD May 07, 2025 11:06
[2025-05-05] MEDS: ACCU-CHEK COMFORT CURVE STRIP VI SCH (21:33)
[2025-05-05] MEDS: InsuLIN REG 1unit/0.01ml Soln (100units/ml) SC SCH (21:33)
[2025-05-06] VITALS (18 sets, daily range): BP systolic 110–136; BP diastolic 75–97; PULSE 62–87; RESP 16–20; TEMP 97.3–98; O2SAT 91–100
[2025-05-06 07:44] LABS: Basophils # (auto) 0 10 ^3/uL (0-0.2); Basophils % (auto) 0.4 % (0.0-2.0); Eosinophils # (auto) 0.1 10 ^3/uL (0-0.8); Eosinophils % (auto) 0.6 % (0.0-7.0); Hematocrit 49.5 % (41.0-53.0); Hemoglobin 16.4 g/dL (13.5-17.5); Lymphocytes # (auto) 2.4 10 ^3/uL (0.4-5.4); Lymphocytes % (auto) 24.7 % (10.0-50.0); Mean Corpuscular Hemoglobin 30.5 pg (28.0-32.0); Mean Corpuscular Hgb Conc. 33.1 g/dL (32.0-36.0); Mean Corpuscular Volume 92.2 fL (80.0-100.0); Monocytes # (auto) 0.7 10 ^3/uL (0-1.3); Neutrophils # (auto) 6.5 10 ^3/uL (1.6-8.6); Neutrophils % (auto) 67.3 % (37.0-80.0); Platelet Count (auto) 255 10^3/uL (140-450); Red Blood Cells 5.37 10^6/uL (4.5-5.90); Red Cell Distribution Width 16.3 % (11.8-14.3); White Blood Cell 9.6 10^3/uL (4.4-10.8)
[2025-05-06 07:52] LABS: Anion Gap 7 (5-15); Chloride 98 mmol/L (98-107); Sodium 138 mmol/L (136-145)
[2025-05-06 07:53] LABS: Calcium 9.8 mg/dL (8.7-10.4)
[2025-05-06 07:57] LABS: Carbon Dioxide 33 mmol/L (20-31); Potassium 3.3 mmol/L (3.5-5.1)
[2025-05-06 07:58] LABS: BUN/Creatinine Ratio 21.7 (10.0-20.0)
[2025-05-06 08:01] LABS: Blood Urea Nitrogen 26 mg/dL (9-23); Glucose 110 mg/dL (74-106)
[2025-05-06] MEDS: MAGNESIUM SULFATE 1GM/100ML 100 ML IV ONE (09:34)
[2025-05-06] MEDS: POTASSIUM CHL 20 Meq TABLET PO ONE (09:35)
--- NOTE | 2025-05-06 11:30 | DVHPNRES ---
Progress Note Date Seen: May 06, 2025 Resident Creating Document: KYLE RM RESIDENT Medical Necessity Reason Pt with a Central, PICC or Fol: No Subjective Review of Systems Mr Morales is a 53-year-old male with PMHx of diabetes mellitus type 2, CAD status post PCI 3 years back, heart failure with preserved ejection fraction, COPD on 2 L home oxygen and CPAP at night, diverticulosis, history of sigmoiditis and internal hemorrhoids, dyslipidemia, and polysubstance dependence who presents to the ER with a chief complaint of shortness of breath lower extremity edema for a week. Patient lives with a his landlord and he is currently not taking his GDMT especially Lasix as he can go to the bathroom, given the bathroom is being renovated. He started to experience shortness of breaths, along with lower extremity edema, increased his oxygen from 2-4 L which did not improve his symptoms and therefore he decided to come to the ER. Patient reports orthopnea, PND. Denies chest pain, recent travel history, immobilization or recent surgery. Past medical/surgical history: CAD (Status post PTCA 3 years back which was unremarkable at [facility]), CHF (With preserved ejection fraction, last known LVEF 55% in July 08), HTN, hyperipidemia, COPD (On 2-3 L home oxygen, uses CPAP at nighttime), Pneumonia, Diverticulosis, GI bleed (History of upper GI bleed), Hemorrhoids (Internal hemorrhoids), Other (Sigmoiditis seen on colonoscopy 07/08), type 2 diabetes on glipizide Social history: Shares a room with [facility], quit smoking 1 year back, drinks socially, denies illicit drug use. 05/04-Patient seen and examined at bedside. Has bilateral crackles up to mid lung field, pitting edema bilaterally. 05/06-patient seen and examined. Lower extremity edema resolving. Potassium and magnesium supplemented PT eval. Lasix decreased to 40 mg daily given alkalosis and increasing creatinine. Objective vital signs Vital Sign Date Time Temp Pulse Resp B/P (MAP) Pulse Ox O2 Delivery O2 Flow Rate FiO2 05/06/25 09:37 125/86 05/06/25 09:36 75 05/06/25 09:00 98.0 18 95 98.0 05/06/25 08:00 Room Air* 0 21 Total Intake and Output 6/05/05/25 05/06/25 15:00 23:00 07:00 Intake Total 476 ml 150 ml 650 ml Output Total 2340 ml 600 ml Balance 476 ml -2190 ml 50 ml medications Current Medications Medications Dose Ordered Sig/Sia Route Start Time Stop Time Status Last Admin Dose Admin Aspirin 81 mg DAILY PO 05/05/25 10:00 05/06/25 09:35 81 MG Carvedilol 6.25 mg Q12HR PO 05/04/25 10:00 05/06/25 09:36 6.25 MG Duloxetine HCl 30 mg BID PO 05/04/25 10:00 05/06/25 09:36 30 MG Insulin Human Regular HS SC 05/04/25 22:00 Cancel Dextrose 50 ml UD PRN IV 05/04/25 00:45 Sodium Chloride 10 ml Q8HR IV 05/04/25 06:00 05/06/25 06:12 10 ML Acetaminophen/ Hydrocodone Bitart 1 tab Q4HP PRN PO 05/04/25 00:45 05/06/25 05:33 1 TAB Ondansetron HCl 4 mg Q4HP PRN IV 05/04/25 00:45 Docusate Sodium 100 mg BIDPRN PRN PO 05/04/25 00:45 05/05/25 18:03 100 MG Acetaminophen 650 mg Q6HP PRN PO 05/04/25 00:45 Nitroglycerin 0.4 mg Q5MINP PRN SL 05/04/25 01:30 Morphine Sulfate 2 mg Q30M PRN IV 05/04/25 01:30 Nicotine 1 patch DAILY TD 05/04/25 10:00 05/06/25 09:36 1 PATCH Ipratropium [place] 0.5 mg Q4HWA NEB 05/04/25 10:00 05/06/25 10:12 0.5 MG Albuterol 2.5 mg Q4HWA NEB 05/04/25 10:00 05/06/25 10:12 2.5 MG Lisinopril 10 mg DAILY PO 05/05/25 10:00 05/06/25 09:37 10 MG Chlorthalidone 25 mg DAILY@BREAKFAST PO 05/05/25 08:00 Hold 05/05/25 09:58 25 MG Hydralazine HCl 10 mg Q6HP PRN IV 05/04/25 14:15 05/04/25 20:57 10 MG Ergocalciferol 50,000 unit Q7D PO 05/04/25 14:15 05/04/25 15:55 50,000 UNIT Allopurinol 100 mg DAILY PO 05/05/25 10:00 05/06/25 09:35 100 MG Tamsulosin HCl 0.4 mg QPM PO 05/04/25 18:00 05/05/25 18:03 0.4 MG Atorvastatin Calcium 40 mg HS PO 05/04/25 22:00 05/05/25 21:39 40 MG Diagnostic Test (Pha) 1 strip HS 05/05/25 22:00 05/05/25 21:33 1 STRIP Insulin Human Regular HS SC 05/05/25 22:00 Furosemide 40 mg DAILY IV 05/07/25 10:00 UNV Examination Obese male patient lying comfortably in the bed in ER, no acute distress General: Obese, afebrile, palor, mucosae are moist Cardiovascular: Regular S1 and S2. No murmurs, gallops or rubs. No JVD elevation. Resolving Bilateral pitting edema 3+ Respiratory: Bilateral inspiratory crackles heard on auscultation up to mid to upper lung roque, no wheezing heard. Abdomen: Soft, nontender, nondistended, normoactive bowel sounds, no rebound tenderness, no organomegaly, no masses Genitourinary: Deferred MSK/skin: Mobilizes 4 limbs. Skin is dry and warm Neurological: No motor, no sensitive deficits, normal speech. Pupils are isocoric and reactive. Psych/Mental Status: A/Ox3 laboratory and microbiology Laboratory Tests 05/06/25 06:21 Test 05/06/25 06:21 Range/Units Serum Glucose 110 H 74-106 mg/dL Labs and/or images reviewed: Labs reviewed by me, Image(s) reviewed by me Problem List/Assessment/Plan Problem List/Assessment/Plan Acute on chronic heart failure with preserved ejection fraction exacerbation- NYHA class 3-secondary to noncompliance Acute hypoxic respiratory failure on chronic hypoxic respiratory failure secondary Hypertensive urgency Last known echo 06/15/2024 showed LVEF 55% Chest x-ray reviewed shows cardiomegaly, bilateral pulmonary vascular congestion along with fluid in the in the lobar fissure on the right side IV Lasix 40 mg decreased to once daily 05/06. daily, Coreg b.i.d. Fluid restriction to 1500 mL per day Strict I&Os Continue oxygen supplementation via NC Increase lisinopril to 10 mg daily, started chlorthalidone 25 mg daily P.r.n. hydralazine for systolic blood pressure more than 170 BNP 75, tropes unremarkable CT chest shows Small esophageal hiatal hernia. Mild lung emphysema. Bibasilar atelectasis. Otherwise, no suspicious focal consolidation or pulmonary nodule. Echocardiogram pending COPD-no exacerbation-on home oxygen Currently on 2.5 L, satting 93% 1 dose of Solu-Medrol 40 mg by admitting Continue nebulized treatment with levalbuterol and ipratropium q.6 hour Type 2 diabetes mellitus-A1c 5.4 Moderate ISS Carbohydrate and cardiac diet Ruled out DVT Lower extremity Doppler unremarkable Hepatomegaly and hepatic steatosis - probably due to KEANE Monitor Probable obstructive sleep apnea Patient uses CPAP at night CPAP at nighttime Chronic alcohol dependence - CIWA 2 Monitor for withdrawal Follow up with follow up level History of PTCA 3 years back - unremarkable Continue home dose of aspirin 81 mg p.o. daily and atorvastatin 40 mg HS daily History of sigmoiditis and internal hemorrhoids Monitor Dyslipidemia Continue atorvastatin 40 mg bedtime Chronic back pain Continue home medication duloxetine History of polysubstance dependence Cannabis dependence Counseled regarding cessation for more than 20 minutes Morbid obesity Counseled regarding healthy lifestyle habits for more than 20 minutes GERD prophylaxis Pantoprazole 40 mg p.o. daily Lovenox 40 mg sc daily Plan discussed with patient in which all questions have been answered Goals of care discussed with the patient for more than 20 minutes, full code status Case discussed with Dr. Andrade Plan discussed with: Patient My Orders My Orders Orders - KYLE RM Procedure Category Date Status Time Furosemide Injection PHA 05/07/25 Logged (Lasix Injection) 10:00 Pt Request For Service PT 05/06/25 Logged 10:24 Date of Service: May 06, 2025 Billing Provider: TERESITA ANDRADE MD Common Visit Codes: [id number] INP/OBS CARE(HIGH) KYLE RM May 06, 2025 11:30 TERESITA ANDRADE MD May 07, 2025 11:07
[2025-05-07] VITALS (13 sets, daily range): BP systolic 91–120; BP diastolic 64–84; PULSE 70–90; RESP 14–19; TEMP 97.7–97.8; O2SAT 92–100
[2025-05-07 06:43] LABS: Anion Gap 7 (5-15); Chloride 100 mmol/L (98-107); Potassium 3.9 mmol/L (3.5-5.1); Sodium 140 mmol/L (136-145)
[2025-05-07 06:49] LABS: BUN/Creatinine Ratio 23.1 (10.0-20.0); Glucose 94 mg/dL (74-106)
[2025-05-07 06:51] LABS: Blood Urea Nitrogen 28 mg/dL (9-23); Carbon Dioxide 33 mmol/L (20-31)
[2025-05-07] MEDS: FUROSEMIDE 40 MG/4 ML VIAL IV SCH (09:34)
[2025-05-07] MEDS ORDERED: LISI-275 PO (14:30)
[2025-05-07] MEDS ORDERED: NIC21P TD (14:30)
--- NOTE | 2025-05-07 14:38 | DVHDSRES ---
Discharge Summary Date of Admission Resident Creating Document: KYLE RM RESIDENT May 04, 2025 at 01:18 Date of Discharge: May 07, 2025 Labs/Diagnostic Data: Laboratory Results Test 05/07/25 05:10 05/06/25 21:11 05/06/25 06:21 05/05/25 06:50 Sodium Level 140 mmol/L (136-145) Potassium Level 3.9 mmol/L (3.5-5.1) Chloride Level 100 mmol/L (98-107) Carbon Dioxide Level 33 mmol/L (20-31) Anion Gap 7 (5-15) Blood Urea Nitrogen 28 mg/dL (9-23) Creatinine 1.21 mg/dL (0.700-1.30) Glomerular Filtration Rate Calc 72 mL/min (>90) BUN/Creatinine Ratio 23.1 (10.0-20.0) Serum Glucose 94 mg/dL (74-106) Calcium Level 9.0 mg/dL (8.7-10.4) POC Glucose 107 mg/dl (70-106) White Blood Count 9.6 10^3/uL (4.4-10.8) Red Blood Count 5.37 10^6/uL (4.5-5.90) Hemoglobin 16.4 g/dL (13.5-17.5) Hematocrit 49.5 % (41.0-53.0) Mean Corpuscular Volume 92.2 fL (80.0-100.0) Mean Corpuscular Hemoglobin 30.5 pg (28.0-32.0) Mean Corpuscular Hemoglobin Concent 33.1 g/dL (32.0-36.0) Red Cell Distribution Width 16.3 % (11.8-14.3) Platelet Count 255 10^3/uL (140-450) Mean Platelet Volume 7.9 fL (6.9-10.8) Neutrophils (%) (Auto) 67.3 % (37.0-80.0) Lymphocytes (%) (Auto) 24.7 % (10.0-50.0) Monocytes (%) (Auto) 7.0 % (0.0-12.0) Eosinophils (%) (Auto) 0.6 % (0.0-7.0) Basophils (%) (Auto) 0.4 % (0.0-2.0) Neutrophils # (Auto) 6.5 10 ^3/uL (1.6-8.6) Lymphocytes # (Auto) 2.4 10 ^3/uL (0.4-5.4) Monocytes # (Auto) 0.7 10 ^3/uL (0-1.3) Eosinophils # (Auto) 0.1 10 ^3/uL (0-0.8) Basophils # (Auto) 0 10 ^3/uL (0-0.2) Nucleated Red Blood Cells 0.0 % Magnesium Level 1.6 mg/dL (1.6-2.6) Total Bilirubin 0.7 mg/dL (0.2-1.0) Aspartate Amino Transferase (AST) 17 U/L (<34) Alanine Aminotransferase (ALT) 19 U/L (7-40) Alkaline Phosphatase 87 U/L (46-116) Total Protein 7.0 g/dL (5.7-8.2) Albumin 4.6 g/dL (3.2-4.8) Test 05/04/25 10:00 05/04/25 09:15 05/04/25 05:38 05/03/25 20:32 Vitamin D 25-Hydroxy 30.6 ng/mL (30.0-100) Free Thyroxine (T4) Calculated 1.11 ng/dL (0.89-1.76) Total Triiodothyronine (TT3) 0.78 ng/mL (0.60-1.81) Urine Color Light-yellow (Yellow) Urine Clarity Clear (Clear) Urine pH 7.0 (5.0-9.0) Urine Specific Baxter 1.011 (1.001-1.035) Urine Protein Negative (Negative) Urine Ketones 1+ (Negative) Urine Blood Negative /uL (Negative) Urine Nitrite Negative (Negative) Urine Bilirubin Negative (Negative) Urine Urobilinogen Normal mg/dL (Negative) Urine Leukocyte Esterase Negative /uL (Negative) Urine RBC None seen /hpf (0 - 3) Urine Microscopic WBC 1 /HPF (0-3) Urine Squamous Epithelial Cells None seen /hpf (<5) Urine Bacteria None seen /hpf (None Seen) Urine Glucose 3+ mg/dL (Normal) Urine Opiates Screen Neg (NEGATIVE) Urine Fentanyl Screen Neg (NEGATIVE) Urine Barbiturates Screen Neg (NEGATIVE) Urine Phencyclidine Screen Neg (NEGATIVE) Urine Amphetamines Screen Neg (NEGATIVE) Urine Benzodiazepines Screen Neg (NEGATIVE) Urine Cocaine Screen Neg (NEGATIVE) Urine Cannabinoids Screen Pos (NEGATIVE) Influenza Type A Antigen Negative (Negative) Influenza Type B Antigen Negative (Negative) SARS-CoV-2 Antigen (Rapid) Negative (NEGATIVE) Hemoglobin A1c 5.4 % A1C (<5.7) Vitamin B12 Level 334 pg/mL (211-911) Thyroid Stimulating Hormone (TSH) 0.53 uIU/mL (0.55-4.78) Troponin I High Sensitivity 22 ng/L (</=54) Test 05/03/25 19:34 D-Dimer, Quantitative 1.32 mg/L FEU (0.0-0.49) Lactic Acid Level 1.0 mmol/L (0.4-2.0) B-Type Natriuretic Peptide 75.97 pg/mL (0-100) Lipase 34 U/L (12-53) Other Laboratory Tests 05/07/25 05:10 05/06/25 06:21 Brief Hx & Hospital Course: Mr Morales is a 53-year-old male with PMHx of diabetes mellitus type 2, CAD status post PCI 3 years back, heart failure with preserved ejection fraction, COPD on 2 L home oxygen and CPAP at night, diverticulosis, history of sigmoiditis and internal hemorrhoids, dyslipidemia, and polysubstance dependence who presents to the ER with a chief complaint of shortness of breath lower extremity edema for a week. Patient lives with a his landlord and he is currently not taking his GDMT especially Lasix as he can go to the bathroom, given the bathroom is being renovated. He started to experience shortness of breaths, along with lower extremity edema, increased his oxygen from 2-4 L which did not improve his symptoms and therefore he decided to come to the ER. Patient reports orthopnea, PND. Denies chest pain, recent travel history, immobilization or recent surgery. Past medical/surgical history: CAD (Status post PTCA 3 years back which was unremarkable at [facility]), CHF (With preserved ejection fraction, last known LVEF 55% in July 08), HTN, hyperipidemia, COPD (On 2-3 L home oxygen, uses CPAP at nighttime), Pneumonia, Diverticulosis, GI bleed (History of upper GI bleed), Hemorrhoids (Internal hemorrhoids), Other (Sigmoiditis seen on colonoscopy 07/08), type 2 diabetes on glipizide Social history: Shares a room with dianna, quit smoking 1 year back, drinks socially, denies illicit drug use. During the hospitalization, patient was diagnosed with a acute on chronic heart failure exacerbation, required oxygen supplementation via NC, started on IV Lasix b.i.d., fluid restriction, strict I&Os. Lisinopril was increased to 10 mg daily to achieve adequate blood pressure control. CT chest was completed that showed small esophageal hiatal hernia, mild lung emphysema, bibasilar atelectasis, no suspicious focal consolidation or pulmonary nodules. Echocardiogram completed showed LVEF 50-55%, mild diastolic dysfunction, mild LA and RA dilation. Patient started to resolve and lower extremity edema went down. Electrolytes were replenished. Lasix was decreased to 40 mg daily. Patient was continued on insulin sliding scale and carbohydrate cardiac diet. Lower extremity Doppler ruled out DVT. CPAP was continued during nighttime. Nicotine patches were given to the patient. Smoking cessation counseling was performed for more than 20 minutes,. Discharge plan: Lisinopril 10 mg daily Resume home medications Follow up with primary care physician within 7 days Follow up with discharge clinic appointment within 7 days Patient agreed with discharge planning. Questions and concerns answered. Operations or Procedures ORDERING PHYSICIAN: YVONNE ORANTES DNP PROCEDURE(s): CX2CT - CHEST WITHOUT CONTRAST REASON: Elevated D-dimer ORDER NUMBER(s): [id number], ACCESSION NUMBER(s): [id number] EXAM: CT Chest Without Intravenous Contrast CLINICAL INDICATION: Pain TECHNIQUE: Axial computed tomography images of the chest without intravenous contrast. This CT exam was performed using one or more of the following dose reduction techniques: automated exposure control, adjustment of the mA and/or kV according to patient size, and/or use of iterative reconstruction technique. COMPARISON: No relevant prior studies available. FINDINGS: LUNGS AND PLEURAL SPACES: Mild lung emphysema. Bibasilar atelectasis. Otherwise, no suspicious focal consolidation or pulmonary nodule. No significant effusion. No pneumothorax. HEART: Unremarkable. No cardiomegaly. No significant pericardial effusion. No significant coronary artery calcifications. MEDIASTINUM: A few prominent mediastinal lymph nodes measuring up to 6 mm. Small esophageal hiatal hernia. BONES/JOINTS: Unremarkable. No acute fracture. SOFT TISSUES: Unremarkable. VASCULATURE: Unremarkable. No thoracic aortic aneurysm. LYMPH NODES: See above. IMPRESSION: 1. Small esophageal hiatal hernia. 2. Mild lung emphysema. Bibasilar atelectasis. Otherwise, no suspicious focal consolidation or pulmonary nodule. ATED BY: PHAM NARAYAN MD DICTATED DATE/TIME: 05/04/25650 SIGNED BY: PHAM NARAYAN MD SIGNED DATE/TIME: 05/04/25650 CC: ORDERING PHYSICIAN: KYLE RM RESIDENT PROCEDURE(s): BLDVT - BiLat Lower DVT REASON: r/o dvt ORDER NUMBER(s): [id number], ACCESSION NUMBER(s): [id number] Bilateral lower extremity venous duplex Clinical History: r/o dvt Comparison: US BILAT LOWER DVT on DOS: 06/14/24 Technique: Duplex doppler evaluation of the deep venous systems of both lower extremities from the common femoral veins to the popliteal veins including color doppler and spectral/pulsed waveform analysis was performed. Findings: RIGHT SIDE: The common femoral vein demonstrates appropriate compressibility and waveform variability. There is compressibility/patency of the great saphenous vein at the proximal thigh. The femoral vein demonstrates appropriate compressibility and waveform variability. The deep femoral vein demonstrates appropriate compressibility and waveform variability. The popliteal vein demonstrates appropriate compressibility and waveform variability. There is normal compressibility at the tibioperoneal trunk. LEFT SIDE: The common femoral vein demonstrates appropriate compressibility and waveform variability. There is compressibility/patency of the great saphenous vein at the proximal thigh. The femoral vein demonstrates appropriate compressibility and waveform variability. The deep femoral vein demonstrates appropriate compressibility and waveform variability. The popliteal vein demonstrates appropriate compressibility and waveform variability. There is normal compressibility at the tibioperoneal trunk. Impression: 1. No right or left femoropopliteal venous thrombosis. ATED BY: JACKSON VALERO MD DICTATED DATE/TIME: 05/04/25956 SIGNED BY: JACKSON VALERO MD SIGNED DATE/TIME: 05/04/25956 CC: Condition at Discharge: Stable Final Diagnosis/Problems List Acute on chronic heart failure with preserved ejection fraction exacerbation-NYHA class 3-secondary to noncompliance Acute hypoxic respiratory failure on chronic hypoxic respiratory failure secondary Hypertensive urgency COPD-no exacerbation-on home oxygen Type 2 diabetes [id number] 5.4 Hepatomegaly and hepatic steatosis likely KEANE Probable obstructive sleep apnea Chronic alcoholic dependence Chronic Nicotine dependence Dyslipidemia Remote history of polysubstance use Morbid obesity Ruled out DVT Discharge Disposition: Home Discharge Instruct/Medications Diet: Consistent carbohydrate, Cardiac 2g Na,low cholest Activity: Light activity Follow Up/Referral: Follow up with primary care physician within 7 days Follow up with discharge clinic appointment within 7 days Medications: Lisinopril 10 mg daily Resume home medications Discharge Statement: "Patient was advised to return to the ER or call 911 if any headaches, dizziness, shortness of breath, chest pain, abdominal pain, bleeding, fevers, or worsening of medical condition. Patient was counseled about treatment plan, medications, possible side effects, patientverbalized understanding. All questions were answered to the best of my ability. This discharge took greater then 30 minutes in planning, reviewing documentation, counseling the patient, and discussing with other team members." ASSESSMENT ASSESSMENT Assessment Acute on chronic heart failure with preserved ejection fraction exacerbation- NYHA class 3-secondary to noncompliance Date of Service: May 07, 2025 Billing Provider: JANNETTE LAM MD Common Visit Codes: 63107-LSP/OBS DISCH DAY >30min KYLE RM RESIDENT May 07, 2025 14:37 JANNETTE LAM MD May 08, 2025 09:42
== END 2025-05-07 18:46 | disposition home or self-care (01) | DRG 194 ==
LOC: EDBD 18:48 → EDUNIT# 18:48 → ER 18:57 → OVERFLOW 05-04 01:18 → TELE-WESTW 05-04 23:55
PROVIDERS: ADMIT Student in an Organized Health Care Education/Training Program; ATTEND Student in an Organized Health Care Education/Training Program
DX: I11.0 Hypertensive heart disease with heart failure (principal); J96.21 Acute and chronic respiratory failure with hypoxia; K75.81 Nonalcoholic steatohepatitis (NASH); E11.65 Type 2 diabetes mellitus with hyperglycemia; I16.0 Hypertensive urgency; I50.33 Acute on chronic diastolic (congestive) heart failure; I25.10 Atherosclerotic heart disease of native coronary artery without angina pectoris; Z20.822 Contact with and (suspected) exposure to COVID-19; G47.33 Obstructive sleep apnea (adult) (pediatric); E78.5 Hyperlipidemia, unspecified; F10.20 Alcohol dependence, uncomplicated; F17.210 Nicotine dependence, cigarettes, uncomplicated; G89.29 Other chronic pain; M10.9 Gout, unspecified; M54.9 Dorsalgia, unspecified; F12.20 Cannabis dependence, uncomplicated; Y90.9 Presence of alcohol in blood, level not specified; J44.9 Chronic obstructive pulmonary disease, unspecified; R16.0 Hepatomegaly, not elsewhere classified; E66.01 Morbid (severe) obesity due to excess calories; Z68.41 Body mass index [BMI] 40.0-44.9, adult; Z95.5 Presence of coronary angioplasty implant and graft; Z91.199 Patient's noncompliance with other medical treatment and regimen due to unspecified reason; Z99.81 Dependence on supplemental oxygen; Z79.02 Long term (current) use of antithrombotics/antiplatelets; Z79.899 Other long term (current) drug therapy
CPT/HCPCS: 36415; 71045; 71250; 80048; 80053; 80307; 81001; 82306; 82607; 82962; 83036; 83605; 83690; 83735; 83880; 84439; 84443; 84480; 84484; 85025; 85379; 87426; 87804; 93306; 93970; 94640; 96374; 97163; G0378; J1100; J1815

== ENCOUNTER 2025-05-27 23:02 | Inpatient (IN) | payer MEDICAID ==
[~2025-05-27] VITALS: Ht 172.7 cm; Wt 117.4 kg
[~2025-05-27 23:02] MED LIST changes: +NIC21P TD
[2025-05-28] VITALS (16 sets, daily range): BP systolic 96–168; BP diastolic 66–105; PULSE 74–100; RESP 14–20; TEMP 97.3–98.3; O2SAT 91–99
[2025-05-28] MEDS: MECLIZINE HCL 25 MG TAB PO ONE (00:19)
[2025-05-28 00:24] LABS: Hemoglobin 19.8 g/dL (13.5-17.5)
[2025-05-28 00:29] LABS: Chloride 100 mmol/L (98-107)
[2025-05-28 00:30] LABS: Anion Gap 8 (5-15); Calcium 9.7 mg/dL (8.7-10.4); Carbon Dioxide 27 mmol/L (20-31); Hematocrit 57.7 % (41.0-53.0); Mean Corpuscular Hemoglobin 31.4 pg (28.0-32.0); Mean Corpuscular Volume 91.7 fL (80.0-100.0); Nucleated Red Blood Cells % 0.1 %
[2025-05-28 00:31] LABS: Potassium 3.3 mmol/L (3.5-5.1); Sodium 135 mmol/L (136-145)
[2025-05-28 00:35] LABS: BUN/Creatinine Ratio 19.5 (10.0-20.0); Blood Urea Nitrogen 23 mg/dL (9-23)
--- NOTE | 2025-05-28 01:00 | ED.PDOC ---
History of Present Illness HPI Comments 54-year-old male who is brought in by ambulance from private residence for chief complaint of dizziness, shortness of breath, nausea, vomiting, increased urine frequency, rhinorrhea, and cough. Patient states on, primarily, calling EMS for room-spinning dizziness sensations, which has been going on every night, since yesterday. He reports going into "REM sleep" and developing dizziness symptoms in his dreams, first. When he wakes up, immediately, afterwards, patient reports still being dizzy. Dizziness worse with head movement and whenever he coughs. Patient reports vomiting only 1 time during a shower, earlier, which reports vomitus being yellow in appearance. Shortness of breath symptom is stated to have been ongoing for 1 week, with the patient commenting on no improvement following his last hospital ED visit at [facility] on May 23, 2025. Significant history for BPH, CAD status post PCI, CHF with preserved EF, COPD with 2 L home oxygen with CPAP at night, DM type 2, gout, HLD, HTN, obstructive sleep apnea, hepatomegaly and hepatic steatosis, morbid obesity, and polysubstance abuse. Patient denies having any chest pain, diarrhea, ear ringing sensation, further associated symptoms. Per EMS report, vitals were noted to have been stable within normal limits, exception patient being slightly hypertensive in the 150s systolic, with the patient admitting to not taking his high blood pressure medication, earlier. Blood glucose of 167 on scene. Chief Complaint: Shortness of Breath Time Seen by MD: 23:45 Primary Care Provider: Chris Reviewed Notes: Nurses Notes, Torpedo Shooter Notes, Medications, Allergies Allergies: Coded Allergies: NO KNOWN ALLERGIES (Unverified , 04/24/18) Home Meds Active Scripts Nicotine (Nicoderm 21MG/24HR) 1 Patch Ph, 1 PATCH TD DAILY for 30 Days, #30 PATCH Prov:KYLE RM RESIDENT 05/07/25 Lisinopril (Lisinopril) 5 Mg Tab, 10 MG PO DAILY for 30 Days, #60 TAB Prov:KYLE RM RESIDENT 05/07/25 Albuterol Sulfate (Albuterol Sulfate) 0.083 % Neb, 1 VIAL NEB Q4HPRN for 30 D ays, #50 VIAL q4hp sob Prov:STEPHANY ALEJANDRE SAP PPM CONSULTANT 01/22/25 Humidifiers (Humidifier) 1 Mis Mis, MIS XX, #1 NS humidifier for home oxygen concentrator Prov:STEPHANY ALEJANDRE SAP PPM CONSULTANT 01/22/25 Pantoprazole Sodium Sesquihydr (Protonix) 40 Mg Tab, 40 MG PO DAILY for 30 Days, #30 TAB Prov:JENNY PEREZ 06/23/24 Euanhosuqdf-Unzrfqeacbio-Qrnae (Trelegy Ellipta 100-62.5-25 Mcg/INH) 1 Aer Aer, 1 AER IN DAILY PRN for 30 Days, #30 AER Prov:CONSTANZA WOODS DO 04/25/24 Finasteride (Finasteride) 5 Mg Tab, 5 MG PO DAILY for 30 Days, #30 TAB 3 Refills Prov:HANK VALLE MD 11/03/23 Tamsulosin Hcl (Flomax) 0.4 Mg Cap, 0.4 MG PO QPM for 30 Days, #30 CAP 3 Refills Prov:HANK VALLE MD 11/03/23 Potassium Chloride (Potassium Chloride ER) 10 Meq Tab, 10 MEQ PO BID for 30 Days, #60 TAB 2 Refills Prov:HANK VALLE MD 11/03/23 Furosemide (Lasix) 40 Mg Tab, 40 MG PO BID for 30 Days, #60 TAB 2 Refills Prov:HANK VALLE MD 11/03/23 Reported Medications Carvedilol (Carvedilol) 6.25 Mg Tab, 1 TAB PO BID 01/17/25 Albuterol Sulfate (Albuterol Sulfate Hfa) 108 Mcg/Act Aer, 2 PUFF INH Q6H PRN for DYSPNEA 01/10/24 Cholecalciferol (VITAMIN D3) 2,000 Unit Tab, 1 TAB PO DAILY, #30 TAB 5 Refills 01/08/24 Acetaminophen (Apap) 325 Mg Tab, 325 MG PO BID, TAB 01/08/24 Allopurinol (ZYLOPRIM TABLET) 100 Mg Tb, 100 MG PO DAILY, TAB 01/08/24 Duloxetine HCl (Duloxetine HCl) 30 Mg Cap, 1 CAP PO BID for 30 Days, #60 01/08/24 Glipizide (Glipizide Xl) 10 Mg Tab, 10 MG PO AC, TAB 01/08/24 Aspirin (Aspir-81) 81 Mg Tab, 1 TAB PO DAILY, #30 TAB 5 Refills 01/08/24 Atorvastatin Calcium (Lipitor) 10 Mg Tab, 1 TAB PO DAILY, #30 TAB 5 Refills 01/08/24 Information Source: Patient, Emergency Med Personnel Mode of Arrival: Ambulatory Severity: Moderate Timing: Days Duration: Intermittent Prehospital treatment: 12 Lead EKG, Accucheck, Marketing Project Manager, Oxygen Review of Systems: REVIEW OF SYSTEMS: General: No fever, no chills, or fatigue HEENT: Rhinorrhea, no sore throat, no earache, no congestion, no neck pain. Cardiac: No chest pain. No palpitations. Lungs: Shortness of breath, cough GI: Nausea and vomiting, abdominal queasiness, no diarrhea, no constipation, no abdominal pain : Increased urine frequency, no dysuria, or urgency. No hematuria. Musculoskeletal: No joint pain , no joint swelling, no extremity edema. Skin: No rash, no itching. Neuro: Dizziness, no headache, no weakness Vital Signs Vital Signs Date Time Temp Pulse Resp B/P (MAP) Pulse Ox O2 Delivery O2 Flow Rate FiO2 05/28/25 04:00 97 22 135/100 (112) 94 05/28/25 01:55 Room Air* 0 21 05/27/25 23:38 97.8 97.8 Physical Exam PHYSICAL EXAM: General: Awake, alert and oriented. No acute distress. Skin: Skin in warm, dry and intact. Appropriate color for ethnicity. HEENT: Exophthalmos, head is normocephalic and atraumatic. Conjunctivae are clear without exudates or hemorrhage. Sclera is non-icteric. EOM are intact. No signs of nystagmus. Eyelids are normal in appearance without swelling or lesions. Oral mucosa is pink and moist Neck: The neck is supple with normal range of motion. No JVD. Cardiac: Heart rate and rhythm are normal. No murmurs, gallops, or rubs are auscultated. Respiratory: No signs of respiratory distress. Lung sounds are clear in all lobes bilaterally without rales, rhonchi, or wheezes. Abdominal: Abdomen is soft, non-tender without distention, guarding or rigidity. Bowel sounds are present and normoactive in all four quadrants. Extremities: Upper and lower extremities are atraumatic in appearance without deformity or edema. Neurological: The patient is awake, alert and oriented to person, place, and time with normal speech. Speech is clear. There is no facial asymmetry. Psychiatric: Appropriate mood and affect. Good judgement and insight. Past Medical History PAST MEDICAL HISTORY: CAD (Status post PCI 3 years ago), CHF (Preserved ejection fraction), COPD (2 L home oxygen with CPAP at night), DM (Type 2), Gout, High Lipids, HTN Past Medical History (Other): BPH History of sigmoiditis and internal hemorrhoids Hepatomegaly and hepatic steatosis Sleep apnea, obstructive Morbid obesity Surgical History (Other): PCI Family History Family History: Reviewed,noncontributory to illness Social History Smoker: Cigarettes, Less Than 1 Pack/Day Alcohol: Occasionally Drugs: Marijuana Lives In: Home Was a procedure done? Was a procedure done?: No EKG EKG : Pulse Rate (adult): 92 [place]: Normal Cardiac Rhythm: NSR Block: None Hypertrophy: None ST: Normal Comments NSTEMI Differential Dx Considerations may include: Differential diagnoses considered include but are not limited to cardiac structural disease, arrhythmia, acute coronary syndrome, orthostasis, pulmonary embolism, dissection, seizure, basilar stroke, acute Bronchitis, Asthma, COPD, Pneumothorax, PE, CHF, Pulmonary HTN, Anemia, CO Poisoning, Methemoglobinemia, Hyperventilation, Metabolic Acidosis, Pulmonary Edema, Pneumonia, ACS, Pericardial Tamponade, Anxiety, other X-Ray, Labs, Meds, VS Vital Signs Date Time Temp Pulse Resp B/P (MAP) Pulse Ox O2 Delivery O2 Flow Rate FiO2 05/28/25 04:00 97 22 135/100 (112) 94 05/28/25 03:48 123/97 05/28/25 01:58 100 20 168/105 (126) 95 05/28/25 01:55 99 20 95 Room Air* 0 21 05/28/25 01:17 92 05/27/25 23:38 97.8 95 18 144/102 (116) 94 97.8 05/27/25 23:02 97.8 108 22 134/100 (111) 97 97.8 Lab Test 05/28/25 03:53 05/28/25 01:28 05/27/25 23:58 Range/Units Troponin I High Sensitivity 19 17 17 </=54 ng/L White Blood Count 11.7 H 4.4-10.8 10^3/uL Red Blood Count 6.30 H 4.5-5.90 10^6/uL Hemoglobin 19.8 H 13.5-17.5 g/dL Hematocrit 57.7 H 41.0-53.0 % Mean Corpuscular Volume 91.7 80.0-100.0 fL Mean Corpuscular Hemoglobin 31.4 28.0-32.0 pg Mean Corpuscular Hemoglobin Concent 34.2 32.0-36.0 g/dL Red Cell Distribution Width 16.2 H 11.8-14.3 % Platelet Count 174 140-450 10^3/uL Mean Platelet Volume 7.6 6.9-10.8 fL Neutrophils (%) (Auto) 79.9 37.0-80.0 % Lymphocytes (%) (Auto) 13.4 10.0-50.0 % Monocytes (%) (Auto) 6.3 0.0-12.0 % Eosinophils (%) (Auto) 0.2 0.0-7.0 % Basophils (%) (Auto) 0.2 0.0-2.0 % Neutrophils # (Auto) 9.4 H 1.6-8.6 10 ^3/uL Lymphocytes # (Auto) 1.6 0.4-5.4 10 ^3/uL Monocytes # (Auto) 0.7 0-1.3 10 ^3/uL Eosinophils # (Auto) 0 0-0.8 10 ^3/uL Basophils # (Auto) 0 0-0.2 10 ^3/uL Nucleated Red Blood Cells 0.1 % Sodium Level 135 L 136-145 mmol/L Potassium Level 3.3 L 3.5-5.1 mmol/L Chloride Level 100 98-107 mmol/L Carbon Dioxide Level 27 20-31 mmol/L Anion Gap 8 5-15 Blood Urea Nitrogen 23 9-23 mg/dL Creatinine 1.18 0.700-1.30 mg/dL Glomerular Filtration Rate Calc 74 >90 mL/min BUN/Creatinine Ratio 19.5 10.0-20.0 Serum Glucose 146 H 74-106 mg/dL Calcium Level 9.7 8.7-10.4 mg/dL B-Type Natriuretic Peptide 53.78 0-100 pg/mL Thyroid Stimulating Hormone (TSH) 2.54 0.55-4.78 uIU/mL Current Medications Medications (Trade) Dose Ordered Sig/Isa Route Start Time Stop Time Status Last Admin Meclizine HCl (Antivert Tablet) 50 mg ONCE ONCE PO 05/28/25 00:00 05/28/25 00:01 DC 05/28/25 00:19 Sodium Chloride 1,000 ml @ 130 mls/hr Q7H42M ONCE IV 05/28/25 03:15 05/28/25 10:56 05/28/25 03:49 Hydralazine HCl (Apresoline Injection) 10 mg ONCE ONCE IV 05/28/25 03:15 05/28/25 03:16 DC 05/28/25 03:48 Acetaminophen (Tylenol Tablet) 650 mg ONCE ONCE PO 05/28/25 03:15 05/28/25 03:16 DC 05/28/25 03:16 Time of 1ST Reevaluation: 00:15 Reevaluation 1ST: Unchanged Patient Education/Counseling: Other (Need for admission) Family Education/Counseling: No Family Present SEPSIS Sepsis Screen Date sepsis recognized/suspect: May 27, 2025 Time Sepsis recognized/suspect: 2301 Recent Procedure: No On Antibiotic Therapy: No Respiratory Rate >20: No Heart Rate >90: No Temp<36 C (96.8 F) or >38.3 C: No SBP <90 or MAP <65 mmHG: No New Acute Mental Status Change: No Is the patient on CPAP, BIPAP,: No Physician Orders Electrocardigram (05/27/25 23:51) Marketing Project Manager (05/27/25 ) Orthostatic Vital Signs (05/27/25 ) Saline Lock (05/27/25 23:51) Fall Precautions Initiated (05/27/25 23:51) Electrocardigram (05/28/25 00:51) Electrocardigram (05/28/25 02:51) Chest Xray 1 View (05/28/25 00:53) Sodium Chloride 0.9% (05/28/25 03:15) Meclizine Tablet (Antivert Tablet) (05/28/25 05:00) Albuterol Medneb (Ventolin Medneb) (05/28/25 05:00) Allopurinol Tablet (Zyloprim Tablet) (05/28/25 10:00) Aspirin Tablet (05/28/25 10:00) Atorvastatin (Lipitor) (05/28/25 22:00) Carvedilol Tablet (Coreg Tablet) (05/28/25 10:00) Duloxetine Hcl Capsule (Cymbalta Capsule (05/28/25 10:00) Furosemide Tablet (Lasix Tablet) (05/28/25 06:00) Lisinopril Tablet (Zestril Tablet) (05/28/25 10:00) Tamsulosin Hydrochloride (Flomax) (05/28/25 18:00) Head Without Contrast (05/28/25 04:46) Vital Signs Date Time Temp Pulse Resp B/P (MAP) Pulse Ox O2 Delivery O2 Flow Rate FiO2 05/28/25 04:00 97 22 135/100 (112) 94 05/28/25 03:48 123/97 05/28/25 01:58 100 20 168/105 (126) 95 05/28/25 01:55 99 20 95 Room Air* 0 21 05/28/25 01:17 92 05/27/25 23:38 97.8 95 18 144/102 (116) 94 97.8 05/27/25 23:02 97.8 108 22 134/100 (111) 97 97.8 Laboratory Tests Test 05/27/25 23:58 White Blood Count 11.7 10^3/uL (4.4-10.8) H Medications Medications Dose Ordered Sig/Isa Route Start Time Stop Time Status Last Admin Dose Admin Acetaminophen 650 mg ONCE ONCE PO 05/28/25 03:15 05/28/25 03:16 DC 05/28/25 03:16 Hydralazine HCl 10 mg ONCE ONCE IV 05/28/25 03:15 05/28/25 03:16 DC 05/28/25 03:48 Meclizine HCl 50 mg ONCE ONCE PO 05/28/25 00:00 05/28/25 00:01 DC 05/28/25 00:19 Sodium Chloride 1,000 ml @ 130 mls/hr Q7H42M ONCE IV 05/28/25 03:15 05/28/25 10:56 05/28/25 03:49 Departure 1 Departure Time of Disposition: 03:03 Impression: Primary Impression: Dizziness Additional Impressions: Shortness of breath Uncontrolled hypertension Disposition: ADMITTED INPATIENT Condition: Stable Comments Patient admitted to hospitalist service for further treatment, evaluation and monitoring. Extensive evaluation was performed in attempt to identify or rule out: (See differential diagnosis section) The following tests were ordered, and results were reviewed by me and discussed with patient: (See diagnostic results section) The following test were independently interpreted by me: EKG I reviewed and agreed with the following test results read by other providers: CXR I reviewed the following notes from the pt's past medical encounters: June 13, 2024, June 18, 2024, August 18, 2024, October 15, 2024, January 16, 2025, and May 04, 2025 encounters for chronic respiratory failure, COPD with acute exacerbation, CHF and COPD exacerbation, difficulty breathing, COPD with acute exacerbation, and COPD with acute exacerbation, respectively Additional information was gathered from interviewing the following independent historians: EMS personnel Discussion of management or test interpretation with external physician/other qualified health career resource specialist: N/A Decision regarding hospitalization or escalation of hospital level of care: Risks and benefits of admission for further treatment of patient's condition was considered however due to patient's stable condition patient will be discharged to follow up closely or return to care for worsening of condition or inability to follow up. Critical Care Note Critical Care Time?: No Stability Stability form required: No Heart Score Heart Score: Heart Score Response (Comments) Value History Moderate Suspicious 1 EKG Normal 0 Age 45-64 1 Risk Factors >3 or Hx ASHD 2 Troponin Normal limit 0 Total 4 I personally scribed for ARMEN LAZO MD ([email or web address]) on 05/28/25 at 01:00. Electronically submitted by Lenin Mccoy ([email or web address]). I personally scribed for ARMEN LAZO MD ([email or web address]) on 05/28/25 at 01:17. Electronically submitted by Lenin Mccoy ([email or web address]). ARMEN LAZO MD May 28, 2025 01:00
[2025-05-28 01:06] LABS: Glucose 146 mg/dL (74-106)
--- NOTE | 2025-05-28 01:30 | DVH ---
CHEST RADIOGRAPH Indication: Dizziness Technique: Single frontal view of the chest was obtained COMPARISON: XY CHEST PORTABLE on DOS: 05/03/25, XY CHEST PORTABLE on DOS: 01/19/25, XY CHEST PORTABLE on DOS: 01/18/25, XY CHEST PORTABLE on DOS: 01/16/25, XY CHEST PORTABLE on DOS: 08/17/24 FINDINGS: Lines and Tubes: None Lungs: Right hemidiaphragmatic elevation. Mild right basilar atelectasis. No evidence of consolidatio n. Pleura: No effusion. No pneumothorax. Cardiomediastinal contours: Cardiomegaly. Bones: Unremarkable IMPRESSION: 1. Cardiomegaly and right basilar atelectasis.
[2025-05-28] MEDS: ACETAMINOPHEN 325 MG TAB PO ONE (03:16)
[2025-05-28] MEDS: hydrALAZINE HCL 20 MG/ML VL IV ONE (03:48)
[2025-05-28] MEDS: SODIUM CHLORIDE 0.9% 1,000 ML IV ONE (03:49)
--- NOTE | 2025-05-28 04:53 | DVHHP2 ---
History of Present Illness Reason for Visit: Dizziness History of Present Illness 54-year-old male presents for evaluation of dizziness. Patient reports being awakened from sleep and since then he has been having dizziness. He states symptoms are worse with movement. No headache or blurred vision. No unilateral weakness. No chest pain or palpitations. Past Medical History CAD (Status post PCI 3 years ago), CHF (Preserved ejection fraction), COPD (2 L home oxygen with CPAP at night), DM (Type 2), Gout, High Lipids, HTN Past Surgical History Denies Family History Noncontributory Smoke: <1 pack per day ALCOHOL: occassional Drugs: Marijuana Review of Systems Review of Systems Review of systems are currently negative otherwise addressed in HPI. Allergies: Coded Allergies: NO KNOWN ALLERGIES (Unverified , 04/24/18) Medications Current Medications Medications Dose Ordered Sig/Isa Route Start Time Stop Time Status Last Admin Dose Admin Meclizine HCl 25 mg Q6HPRN PRN PO 05/28/25 05:00 UNV Albuterol 2.5 mg Q6HPRN PRN NEB 05/28/25 05:00 UNV Allopurinol 100 mg DAILY PO 05/28/25 10:00 UNV Aspirin 81 mg DAILY PO 05/28/25 10:00 UNV Atorvastatin Calcium 10 mg HS PO 05/28/25 22:00 UNV Carvedilol 6.25 mg Q12HR PO 05/28/25 10:00 UNV Duloxetine HCl 30 mg DAILY PO 05/28/25 10:00 UNV Furosemide 40 mg BIDD PO 05/28/25 06:00 UNV Lisinopril 10 mg DAILY PO 05/28/25 10:00 UNV Tamsulosin HCl 0.4 mg QPM PO 05/28/25 18:00 UNV Exam Vital Signs Vital Signs Date Time Temp Pulse Resp B/P (MAP) Pulse Ox O2 Delivery O2 Flow Rate FiO2 05/28/25 03:48 123/97 05/28/25 01:58 100 20 95 05/28/25 01:55 Room Air* 0 21 05/27/25 23:38 97.8 97.8 Exam Gen: 54-year-old male in no apparent distress. Skin: Warm, dry, normal color and texture, no rash. HEENT: Normocephalic atraumatic, mucous membranes moist and pink. Neck: Cervical and supraclavicular nodes normal without enlargement, trachea is midline, thyroid gland is normal without masses. Pulmonary: Clear to auscultation and percussion bilaterally. Cardiac: Regular rate and rhythm. No murmur Abdomen: Soft, nontender, nondistended, bowel sounds present all 4 quadrants, no guarding, no rigidity, no organomegaly. Extremities: No cyanosis, clubbing, no edema Neuro: Cranial nerves II through XII grossly intact, normal affect and speech, no focal motor deficits. Labs/Xrays ORDERING PHYSICIAN: ARMEN LAZO MD PROCEDURE(s): CXR1 - CHEST XRAY 1 VIEW REASON: Dizziness ORDER NUMBER(s): [id number], ACCESSION NUMBER(s): [id number] CHEST RADIOGRAPH Indication: Dizziness Technique: Single frontal view of the chest was obtained COMPARISON: XY CHEST PORTABLE on DOS: 05/03/25, XY CHEST PORTABLE on DOS: 01/19/25, XY CHEST PORTABLE on DOS: 01/18/25, XY CHEST PORTABLE on DOS: 01/16/25, XY CHEST PORTABLE on DOS: 08/17/24 FINDINGS: Lines and Tubes: None Lungs: Right hemidiaphragmatic elevation. Mild right basilar atelectasis. No evidence of consolidation. Pleura: No effusion. No pneumothorax. Cardiomediastinal contours: Cardiomegaly. Bones: Unremarkable IMPRESSION: 1. Cardiomegaly and right basilar atelectasis. RING PHYSICIAN: HANK HOLDEN PROCEDURE(s): HWOCT - HEAD WITHOUT CONTRAST REASON: Dizziness ORDER NUMBER(s): [id number], ACCESSION NUMBER(s): [id number] EXAM: CT HEAD WITHOUT CONTRAST INDICATION: Dizziness TECHNIQUE: CT of the head without intravenous contrast. Radiation Dose : 1. Head: CT Dose: CTDI volume is 54.83 mGy. Dose-length product is 878.96 mGy*cm The dose indicators for CT are the volume Computed Tomography (CT) Dose Index (CTDIvol) and the Dose Length Product (DLP), and are measured in units of mGy and mGy-cm, respectively. These indicators are not patient dose, but values generated from the CT scanner acquisition factors. The report includes radiation exposure data for exposures received during this examination. COMPARISON: CT HEAD WITHOUT CONTRAST on DOS: 08/18/24 FINDINGS: There is no evidence of acute intracranial hemorrhage, extra-axial collection, mass effect, midline shift, herniation or hydrocephalus. The ventricles, sulci and cisterns are age appropriate. The guerrero-white differentiation is intact. Patchy periventricular and subcortical white matter hypoattenuation is nonspecific but may be related to small vessel ischemic disease. Bilateral maxillary mucosal sinus disease. The remaining visualized paranasal sinuses and mastoid air cells are clear. The surrounding soft tissues and osseous structures are unremarkable. IMPRESSION: 1. No acute intracranial abnormality. Radiation optimization: All CT scans at this facility use at least one of these dose optimization techniques: automated exposure control mA and/or kV adjustment per patient size (includes targeted exams where dose is matched to clinical indication) or iterative reconstruction. ATED BY: JOSE CRUZ DUMONT MD DICTATED DATE/TIME: 05/28/25506 SIGNED BY: JOSE CRUZ DUMONT MD SIGNED DATE/TIME: 05/28/25506 CC: Labs Test 05/28/25 03:53 05/27/25 23:58 Range/Units Troponin I High Sensitivity 19 </=54 ng/L White Blood Count 11.7 H 4.4-10.8 10^3/uL Red Blood Count 6.30 H 4.5-5.90 10^6/uL Hemoglobin 19.8 H 13.5-17.5 g/dL Hematocrit 57.7 H 41.0-53.0 % Mean Corpuscular Volume 91.7 80.0-100.0 fL Mean Corpuscular Hemoglobin 31.4 28.0-32.0 pg Mean Corpuscular Hemoglobin Concent 34.2 32.0-36.0 g/dL Red Cell Distribution Width 16.2 H 11.8-14.3 % Platelet Count 174 140-450 10^3/uL Mean Platelet Volume 7.6 6.9-10.8 fL Neutrophils (%) (Auto) 79.9 37.0-80.0 % Lymphocytes (%) (Auto) 13.4 10.0-50.0 % Monocytes (%) (Auto) 6.3 0.0-12.0 % Eosinophils (%) (Auto) 0.2 0.0-7.0 % Basophils (%) (Auto) 0.2 0.0-2.0 % Neutrophils # (Auto) 9.4 H 1.6-8.6 10 ^3/uL Lymphocytes # (Auto) 1.6 0.4-5.4 10 ^3/uL Monocytes # (Auto) 0.7 0-1.3 10 ^3/uL Eosinophils # (Auto) 0 0-0.8 10 ^3/uL Basophils # (Auto) 0 0-0.2 10 ^3/uL Nucleated Red Blood Cells 0.1 % Sodium Level 135 L 136-145 mmol/L Potassium Level 3.3 L 3.5-5.1 mmol/L Chloride Level 100 98-107 mmol/L Carbon Dioxide Level 27 20-31 mmol/L Anion Gap 8 5-15 Blood Urea Nitrogen 23 9-23 mg/dL Creatinine 1.18 0.700-1.30 mg/dL Glomerular Filtration Rate Calc 74 >90 mL/min BUN/Creatinine Ratio 19.5 10.0-20.0 Serum Glucose 146 H 74-106 mg/dL Calcium Level 9.7 8.7-10.4 mg/dL B-Type Natriuretic Peptide 53.78 0-100 pg/mL Thyroid Stimulating Hormone (TSH) 2.54 0.55-4.78 uIU/mL SEPSIS Sepsis Screen Date sepsis recognized/suspect: May 28, 2025 Time Sepsis recognized/suspect: 020 Recent Procedure: No On Antibiotic Therapy: No Respiratory Rate >20: No Heart Rate >90: No Temp<36 C (96.8 F) or >38.3 C: No SBP <90 or MAP <65 mmHG: No New Acute Mental Status Change: No Is the patient on CPAP, BIPAP,: No Physician Orders Electrocardigram (05/27/25 23:51) Survey Manager (05/27/25 ) Orthostatic Vital Signs (05/27/25 ) Saline Lock (05/27/25 23:51) Fall Precautions Initiated (05/27/25 23:51) Electrocardigram (05/28/25 00:51) Electrocardigram (05/28/25 02:51) Chest Xray 1 View (05/28/25 00:53) Sodium Chloride 0.9% (05/28/25 03:15) Meclizine Tablet (Antivert Tablet) (05/28/25 05:00) Albuterol Medneb (Ventolin Medneb) (05/28/25 05:00) Allopurinol Tablet (Zyloprim Tablet) (05/28/25 10:00) Aspirin Tablet (05/28/25 10:00) Atorvastatin (Lipitor) (05/28/25 22:00) Carvedilol Tablet (Coreg Tablet) (05/28/25 10:00) Duloxetine Hcl Capsule (Cymbalta Capsule (05/28/25 10:00) Furosemide Tablet (Lasix Tablet) (05/28/25 06:00) Lisinopril Tablet (Zestril Tablet) (05/28/25 10:00) Tamsulosin Hydrochloride (Flomax) (05/28/25 18:00) Head Without Contrast (05/28/25 04:46) Potassium Er Tablet (Klor-Con Tablet) (05/28/25 05:00) Admit (05/28/25 04:51) Ondansetron Hcl (Zofran) (05/28/25 05:00) Cardiac Diet-2gna,Lofat,Lochol (05/28/25 Breakfast) Condition: Stable (05/28/25 04:51) Acetaminophen Tablet (Tylenol Tablet) (05/28/25 05:00) Bedrest With Bathroom Privileg (05/28/25 04:51) Vital Signs Date Time Temp Pulse Resp B/P (MAP) Pulse Ox O2 Delivery O2 Flow Rate FiO2 05/28/25 03:48 123/97 05/28/25 01:58 100 20 168/105 (126) 95 05/28/25 01:55 99 20 95 Room Air* 0 21 05/28/25 01:17 92 05/27/25 23:38 97.8 95 18 144/102 (116) 94 97.8 05/27/25 23:02 97.8 108 22 134/100 (111) 97 97.8 Laboratory Tests Test 05/27/25 23:58 White Blood Count 11.7 10^3/uL (4.4-10.8) H Medications Medications Dose Ordered Sig/Isa Route Start Time Stop Time Status Last Admin Dose Admin Acetaminophen 650 mg ONCE ONCE PO 05/28/25 03:15 05/28/25 03:16 DC 05/28/25 03:16 650 MG Hydralazine HCl 10 mg ONCE ONCE IV 05/28/25 03:15 05/28/25 03:16 DC 05/28/25 03:48 10 MG Meclizine HCl 50 mg ONCE ONCE PO 05/28/25 00:00 05/28/25 00:01 DC 05/28/25 00:19 50 MG Sodium Chloride 1,000 ml @ 130 mls/hr [id number] ONCE IV 05/28/25 03:15 05/28/25 10:56 05/28/25 03:49 130 MLS/HR Assessment/Plan Assessment/Plan Assessment Dizziness Diabetes mellitus Congestive heart failure Accelerated hypertension Hypokalemia Plan Admit the patient to [facility] to the hospitalist Head CT pending Resume home medications Meclizine trial Continue treatment per orders. Plan discussed with: Patient My Orders Orders - HANK HOLDEN Procedure Category Date Status Time Meclizine Tablet PHA 05/28/25 Logged (Antivert Tablet) 05:00 Albuterol Medneb PHA 05/28/25 Logged (Ventolin Medneb) 05:00 Allopurinol Tablet PHA 05/28/25 Logged (Zyloprim Tablet) 10:00 Aspirin Tablet PHA 05/28/25 Logged 10:00 Atorvastatin (Lipitor) PHA 05/28/25 Logged 22:00 Carvedilol Tablet PHA 05/28/25 Logged (Coreg Tablet) 10:00 Duloxetine Hcl PHA 05/28/25 Logged Capsule (Cymbalta 10:00 Furosemide Tablet PHA 05/28/25 Logged (Lasix Tablet) 06:00 Lisinopril Tablet PHA 05/28/25 Logged (Zestril Tablet) 10:00 Tamsulosin PHA 05/28/25 Logged Hydrochloride (Flomax) 18:[address] 05/28/25 Logged 04:46 Potassium Er Tablet PHA 05/28/25 Logged (Klor-Con Tablet) 05:00 Admit ADMIT 05/28/25 Verified 04:51 Ondansetron Hcl PHA 05/28/25 Verified (Zofran) 05:00 Cardiac DIET 05/28/25 Verified Diet-2gna,Lofat,Lochol Breakfast Condition: Stable [facility] 05/28/25 Verified 04:51 Acetaminophen Tablet PHA 05/28/25 Verified (Tylenol Tablet) 05:00 Bedrest With Bathroom [facility] 05/28/25 Verified Privileg 04:51 Date of Service: May 28, 2025 Billing Provider: HANK HOLDEN Common Visit Codes: [id number] INP/OBS CARE (MOD) HANK HOLDEN May 28, 2025 04:53
[2025-05-28] MEDS ORDERED: ONDANSETRON HCL 4 MG/2 ML VIAL IV PRN (05:00)
[2025-05-28] MEDS ORDERED: ALBUTEROL SULF 2.5 MG/0.5ML(0.5%) NEB SOLN NEB PRN ×2 (05:00→14:30)
[2025-05-28] MEDS ORDERED: MECLIZINE HCL 25 MG TAB PO PRN (05:00)
--- NOTE | 2025-05-28 05:10 | DVH ---
EXAM: CT HEAD WITHOUT CONTRAST INDICATION: Dizziness TECHNIQUE: CT of the head without intravenous contrast. Radiation Dose : 1. Head: CT Dose: CTDI volume is 54.83 mGy. Dose-length product is 878.96 mGy*cm The dose indicators for CT are the volume Computed Tomography (CT) Dose Index (CTDIvol) and the Dose Length Product (DLP), and are measured in units of mGy and mGy-cm, respectively. These indicators are not patient dose, but values generated from the CT scanner acquisition factors. The report includes radiation exposure data for exposures received during this examination. COMPARISON: CT HEAD WITHOUT CONTRAST on DOS: 08/18/24 FINDINGS: There is no evidence of acute intracranial hemorrhage, extra-axial collection, mass effect, midline s hift, herniation or hydrocephalus. The ventricles, sulci and cisterns are age appropriate. The guerrero-white differentiation is intact. Patchy periventricular and subcortical white matter hypoattenuation is nonspecific but may be related to small vessel ischemic disease. Bilateral maxillary mucosal sinus disease. The remaining visualized paranasal sinuses and mastoid ai r cells are clear. The surrounding soft tissues and osseous structures are unremarkable. IMPRESSION: 1. No acute intracranial abnormality. Radiation optimization: All CT scans at this facility use at least one of these dose optimization narinder hniques: automated exposure control mA and/or kV adjustment per patient size (includes targeted exam s where dose is matched to clinical indication) or iterative reconstruction.
[2025-05-28] MEDS: POTASSIUM CHL 20 Meq TABLET PO ONE (05:27)
[2025-05-28] MEDS: FUROSEMIDE 40 MG TAB PO SCH (06:08)
--- NOTE | 2025-05-28 07:09 | ECG ---
[facility] Test Date: 2025-05-27 Test Time: 23:27:08 Pat Name: SIMEON TAYLOR Department: ED Room: [address] [place] [address] Gender: M Application Support Lead: : 1970 Requested By: ARMEN LAZO Order Number: [id number] Reading MD: Joshua Kamara Measurements Intervals [place] Rate: 92 P: 58 [place]: 136 QRS: 43 QRSD: 108 T: 30 QT: 374 QTc: 463 Interpretive Statements Sinus rhythm Consider left atrial enlargement Electronically Signed On 05-28-2025 19:33:34 PDT by Joshua Kamara Please click the below link to view image of tracing.
[2025-05-28] MEDS: ALLOPURINOL 100 MG TAB PO SCH (09:54)
[2025-05-28] MEDS: LISINOPRIL 5 MG TAB PO SCH (09:55)
[2025-05-28] MEDS: CARVEDILOL 3.125 MG TAB PO SCH (09:56)
[2025-05-28] MEDS: ACETAMINOPHEN 325 MG TAB PO PRN (11:03)
[2025-05-28] MEDS ORDERED: DEXTROSE (50%) 50ML SYRG IV PRN (15:45)
[2025-05-28] MEDS: HYDROcodone-ACET 5/325MG TAB PO PRN (16:09)
[2025-05-28] MEDS: ACCU-CHEK COMFORT CURVE STRIP VI SCH (16:38)
[2025-05-28] MEDS: InsuLIN REG 1unit/0.01ml Soln (100units/ml) SC SCH (16:38)
--- NOTE | 2025-05-28 18:03 | DVHPNRES ---
Progress Note Date Seen: May 28, 2025 Resident Creating Document: MAL MURDOCK RESIDENT Medical Necessity Reason Pt with a Central, PICC or Fol: No Subjective Review of Systems Andrew Billingsley is a 54-year-old male with past medical history of COPD, hypertension, CHF, DM, gout, HLD, enlarged prostate, bruised tailbone, peripheral neuropathy. He came to ED with complaints of shortness of breaths for last week associated with cough, sputum. It improved on sitting up. Complains of vertigo/dizziness when he wakes up in the middle of night. Last night he reports vomiting, vomitus was green in color. Couple of days ago he reported having black-colored vomitus. His symptoms are associated with chills, sweating. No history of chest pain, fever, diarrhea. Is on home oxygen 2 L. Last week he reports having ignited oxygen on on phlegm and burning some office nasal hair then he was attempting to blow off incense stick. Personal history: Occasional alcohol use, smoker, cannabis use occasionally. ROS: Constitutional: Denies weight loss, fever and chills. HEENT: Denies changes in vision and hearing. Respiratory: Shortness of breath and cough with white phlegm Cardiovascular: Denies chest discomfort or palpitations GI: Denies abdominal pain, nausea, vomiting and diarrhea. : Denies dysuria and urinary frequency. Musculoskeletal: Denies myalgias and joint pain Skin: Denies rash and pruritus. Neurological: vertigo. Denies dizziness, headache, vision or hearing problems Objective vital signs Vital Sign Date Time Temp Pulse Resp B/P (MAP) Pulse Ox O2 Delivery O2 Flow Rate FiO2 05/28/25 17:36 82 20 95 Room Air* 0 21 05/28/25 17:00 97.3 113/78 (90) 97.3 Total Intake and Output 05/27/25 05/27/25 05/28/25 15:00 23:00 07:00 Intake Total 390 ml Balance 390 ml medications Current Medications Medications Dose Ordered Sig/Isa Route Start Time Stop Time Status Last Admin Dose Admin Meclizine HCl 25 mg Q6HPRN PRN PO 05/28/25 05:00 Allopurinol 100 mg DAILY PO 05/28/25 10:00 05/28/25 09:54 100 MG Aspirin 81 mg DAILY PO 05/28/25 10:00 05/28/25 09:55 81 MG Atorvastatin Calcium 10 mg HS PO 05/28/25 22:00 Carvedilol 6.25 mg Q12HR PO 05/28/25 10:00 05/28/25 09:56 6.25 MG Duloxetine HCl 30 mg DAILY PO 05/28/25 10:00 05/28/25 09:54 30 MG Furosemide 40 mg BIDD PO 05/28/25 06:00 05/28/25 06:08 40 MG Lisinopril 10 mg DAILY PO 05/28/25 10:00 05/28/25 09:55 10 MG Tamsulosin HCl 0.4 mg QPM PO 05/28/25 18:00 Ondansetron HCl 4 mg Q4HP PRN IV 05/28/25 05:00 Acetaminophen 650 mg Q6HP PRN PO 05/28/25 05:00 05/28/25 11:03 650 MG Azithromycin 250 ml @ 125 mls/hr DAILY IV 05/29/25 10:00 Ipratropium [place] 0.5 mg Q4HR NEB 05/28/25 18:00 Methylprednisolone Sodium Succinate 40 mg BID IV 05/28/25 22:00 Albuterol 2.5 mg Q4HR NEB 05/28/25 18:00 Diagnostic Test (Pha) 1 strip ACHS 05/28/25 17:00 05/28/25 16:38 1 STRIP Insulin Human Regular ACHS SC 05/28/25 17:00 05/28/25 16:38 2 UNITS Dextrose 50 ml UD PRN IV 05/28/25 15:45 Acetaminophen/ Hydrocodone Bitart 1 tab Q4HPRN PRN PO 05/28/25 15:45 05/28/25 16:09 1 TAB Examination General: Cushingoid habitus. Patient alert and oriented in person, place and time. Patient following commands. HEENT: Normocephalic, atraumatic, moist mucous membranes Respiratory/pulmonary: DBS in the left lower lung. Reduced breath sounds bilaterally. Right lung clear to auscultation. Cardiovascular: Normal heart sounds S1 and S2 with no associated murmurs Abdomen: Abdomen nondistended, there is no pain to palpation in any of the abdominal quadrants, no palpable masses. Extremities: There is no peripheral edema present at the lower extremities. Peripheral Pulses: 3+ Radial (R). 3+ Radial (L). 3+ Dorsalis pedis (R). 3+ Dorsalis pedis(L) Skin: No rashes or pruritus, there is no sacral edema present at this time. Neurological: Intact cranial nerves with no focal neurologic deficits laboratory and microbiology Laboratory Tests 05/27/25 23:58 Test 05/27/25 23:58 Range/Units Serum Glucose 146 H 74-106 mg/dL Problem List/Assessment/Plan Problem List/Assessment/Plan #COPD, acute exacerbation, acute pneumonitis #SIRS without AOD #Tachycardia #Tachypnea #Leukocytosis #Neutrophillia -Managed with nebulization of albuterol, ipratropium -Continue oxygen supplementation -IV azithromycin as standard of treatment plus anti-inflammatory -IV methylprednisolone 40 mg b.i.d. #Acute on chronic CHF -BNP, echo -Continue furosemide #Upper GI bleed, rule out -Stool occult blood ordered #Obesity with BMI 39.6 -Lifestyle Changes discussed #Gout #HTN #Diabetes mellitus #HLD #Cushingoid habitus -We will check cortisol levels #Vertigo #Sleep apnea possible Goals of care discussed with the patient at bedside for more than 35 minutes Full code Plan discussed with Dr. Sampson Plan discussed with: Patient My Orders My Orders Orders - MAL MURDOCK RESIDENT Procedure Category Date Status Time Azithromycin 500mg/ PHA 05/29/25 In Process 250ml (Zithromax 50 10:00 Ipratropium Medneb PHA 05/28/25 In Process (Atrovent Medneb) 18:00 Methylprednisolone PHA 05/28/25 In Process Sod Succ (Solu Medrol 22:00 Cortisol Urinary Free LAB 05/28/25 Logged 24hr 14:16 Stool Occult Blood LAB 05/28/25 Logged 14:16 Albuterol Medneb PHA 05/28/25 In Process (Ventolin Medneb) 18:00 MAL MURDOCK RESIDENT May 28, 2025 18:03
[2025-05-28] MEDS: IPRATROPIUM BROM 0.5 MG/2.5ML INH SOL NEB SCH (18:25)
[2025-05-28] MEDS: ALBUTEROL SULF 2.5 MG/0.5ML(0.5%) NEB SOLN NEB SCH (18:25)
[2025-05-28] MEDS: TAMSULOSIN HYDROCHLORIDE 0.4 MG CAP PO SCH (18:40)
[2025-05-28] MEDS: ATORVASTATIN 20 MG TAB PO SCH (21:02)
[2025-05-28] MEDS: methylPREDNISolone SOD SUCC 40 MG/ML VL IV SCH (21:02)
[2025-05-29] VITALS (21 sets, daily range): BP systolic 104–138; BP diastolic 66–93; PULSE 66–91; RESP 14–19; TEMP 95.2–97.8; O2SAT 92–100
[2025-05-29 06:32] LABS: Hemoglobin 18.7 g/dL (13.5-17.5); Nucleated Red Blood Cells % 0.1 %
[2025-05-29 06:35] LABS: Hematocrit 55.6 % (41.0-53.0); Mean Corpuscular Hemoglobin 31.5 pg (28.0-32.0); Mean Corpuscular Volume 93.7 fL (80.0-100.0)
[2025-05-29 06:50] LABS: Albumin 4.5 g/dL (3.2-4.8); Anion Gap 7 (5-15); BUN/Creatinine Ratio 20.2 (10.0-20.0); Carbon Dioxide 26 mmol/L (20-31); Potassium 4.1 mmol/L (3.5-5.1); Total Protein 6.8 g/dL (5.7-8.2)
[2025-05-29 06:51] LABS: Bilirubin, Total 1.1 mg/dL (0.2-1.0)
[2025-05-29 06:54] LABS: Alanine Aminotransferase 46 U/L (7-40); Alkaline Phosphatase 119 U/L (46-116); Blood Urea Nitrogen 26 mg/dL (9-23); Calcium 10.6 mg/dL (8.7-10.4); Chloride 98 mmol/L (98-107); Glucose 192 mg/dL (74-106); Sodium 131 mmol/L (136-145)
[2025-05-29] MEDS: AZITHROMYCIN 500MG/ 250ML 250 ML IV SCH (11:10)
--- NOTE | 2025-05-29 15:42 | DVHPNRES ---
Progress Note Date Seen: May 29, 2025 Resident Creating Document: MAL MURDOCK RESIDENT Medical Necessity Reason Pt with a Central, PICC or Fol: No Subjective Review of Systems Andrew Desai is a 54-year-old male, with past medical history of COPD, hypertension, CHF, DM, gout, HLD, enlarged prostate, bruised tailbone, peripheral neuropathy. He came to ED with complaints of shortness of breaths for last week associated with cough, sputum. It improves on sitting up. He also complains of vertigo/dizziness when he wakes up in the middle of night. Last night he reports vomiting. The vomitus was green in color, he did not see any blood. He also reported having black-colored vomitus last week. He has associated with chills, sweating. No history of chest pain, fever, change in bowel or bladder habits. He is currently on home oxygen 2 L. Last week he reports having ignited oxygen on on phlegm and burning some office nasal hair then he was attempting to blow off incense stick. Vitals showed high pulse rate and respiratory rate. On labs he had leukocytosis, neutrophilia. In the ED he was started on albuterol and ipratropium bromide. Personal history: Occasional alcohol use, smoker, cannabis use occasionally. 05/29/25: Patient continues to complain of shortness of breath, says his cough is improving. Shortness of breaths aggravate while lying down. He was not able to get enough sleep. Currently on 2 L oxygen. Chest x-ray shows cardiomegaly and right basilar atelectasis. EKG shows left atrial enlargement. CT head shows no abnormality. His hemoglobin and hematocrit are trending down. Labs show neutrophilia, possibly due to steroid use. Sodium 131, BUN 26. High serum calcium, liver enzymes. We will evaluate him for hypercalcemia. ROS: Constitutional: Denies weight loss, fever and chills. HEENT: Denies changes in vision and hearing. Respiratory: Shortness of breath and cough with white phlegm Cardiovascular: Denies chest discomfort or palpitations GI: Denies abdominal pain, nausea, vomiting and diarrhea. : Denies dysuria and urinary frequency. Musculoskeletal: Denies myalgias and joint pain Skin: Denies rash and pruritus. Neurological: vertigo. Denies dizziness, headache, vision or hearing problems Objective vital signs Vital Sign Date Time Temp Pulse Resp B/P (MAP) Pulse Ox O2 Delivery O2 Flow Rate FiO2 05/29/25 14:33 74 14 100 05/29/25 12:53 95.2 134/92 (106) 95.2 05/29/25 10:00 Nasal Cannula* 2 28 Total Intake and Output 05/28/25 05/28/25 05/29/25 15:00 23:00 07:00 Intake Total 236 ml 736 ml Balance 236 ml 736 ml medications Current Medications Medications Dose Ordered Sig/Isa Route Start Time Stop Time Status Last Admin Dose Admin Meclizine HCl 25 mg Q6HPRN PRN PO 05/28/25 05:00 Allopurinol 100 mg DAILY PO 05/28/25 10:00 05/29/25 09:06 100 MG Aspirin 81 mg DAILY PO 05/28/25 10:00 05/29/25 09:07 81 MG Atorvastatin Calcium 10 mg HS PO 05/28/25 22:00 05/28/25 21:02 10 MG Carvedilol 6.25 mg Q12HR PO 05/28/25 10:00 05/29/25 09:08 6.25 MG Duloxetine HCl 30 mg DAILY PO 05/28/25 10:00 05/29/25 09:06 30 MG Furosemide 40 mg BIDD PO 05/28/25 06:00 05/29/25 05:15 40 MG Lisinopril 10 mg DAILY PO 05/28/25 10:00 05/29/25 09:08 10 MG Tamsulosin HCl 0.4 mg QPM PO 05/28/25 18:00 05/28/25 18:40 0.4 MG Ondansetron HCl 4 mg Q4HP PRN IV 05/28/25 05:00 Acetaminophen 650 mg Q6HP PRN PO 05/28/25 05:00 05/28/25 11:03 650 MG Azithromycin 250 ml @ 125 mls/hr DAILY IV 05/29/25 10:00 05/29/25 11:10 125 MLS/HR Ipratropium [place] 0.5 mg Q4HR NEB 05/28/25 18:00 05/29/25 14:25 0.5 MG Methylprednisolone Sodium Succinate 40 mg BID IV 05/28/25 22:00 05/29/25 11:10 40 MG Albuterol 2.5 mg Q4HR NEB 05/28/25 18:00 05/29/25 14:25 2.5 MG Diagnostic Test (Pha) 1 strip ACHS 05/28/25 17:00 05/29/25 11:09 1 STRIP Insulin Human Regular ACHS SC 05/28/25 17:00 05/29/25 11:10 6 UNITS Dextrose 50 ml UD PRN IV 05/28/25 15:45 Acetaminophen/ Hydrocodone Bitart 1 tab Q4HPRN PRN PO 05/28/25 15:45 05/29/25 13:32 1 TAB Examination General: Cushingoid habitus. Patient alert and oriented in person, place and time. Patient following commands. HEENT: Normocephalic, atraumatic, moist mucous membranes Respiratory/pulmonary: Reduced breath sounds bilaterally. Lungs are clear to auscultation. Cardiovascular: Normal heart sounds S1 and S2 with no associated murmurs Abdomen: Abdomen nondistended, there is no pain to palpation in any of the abdominal quadrants, no palpable masses. Extremities: There is no peripheral edema present at the lower extremities. Peripheral Pulses: 3+ Radial (R). 3+ Radial (L). 3+ Dorsalis pedis (R). 3+ Dorsalis pedis(L) Skin: No rashes or pruritus, there is no sacral edema present at this time. Neurological: Intact cranial nerves with no focal neurologic deficits laboratory and microbiology Laboratory Tests 05/29/25 05:47 Test 05/29/25 05:47 Range/Units Serum Glucose 192 H 74-106 mg/dL Problem List/Assessment/Plan Problem List/Assessment/Plan #COPD, acute exacerbation, acute pneumonitis #SIRS without AOD #Tachycardia #Tachypnea #Leukocytosis #Neutrophillia -Managed with nebulization of albuterol, ipratropium -Continue oxygen supplementation -IV azithromycin as standard of treatment plus anti-inflammatory -IV methylprednisolone 40 mg b.i.d. #Hyponatremia #Hypercalcemia -Calcium 10.6 -Ordered parathyroid hormone levels #Elevated liver enzymes -Total bilirubin 1.1, ALT 46, ALP 119 #Acute on chronic CHF -BNP, echo -Continue furosemide #Upper GI bleed, ruled out -Stool occult blood negative #Obesity with BMI 39.6 -Lifestyle Changes discussed #Gout #HTN #Diabetes mellitus #Hyperglycemia -Blood glucose 253 -A1c 5.4 on 6/20/25 -Managed with sliding scale insulin #HLD #Cushingoid habitus -We will check cortisol levels #Vertigo #Sleep apnea possible Goals of care discussed with the patient at bedside for more than 25 minutes Full code Plan discussed with Dr. Sampson Plan discussed with: Patient ZEECANDISFELIXME CataMAL RESIDENT May 29, 2025 15:42
[2025-05-29 16:03] LABS: Hematocrit 52.5 % (41.0-53.0); Hemoglobin 17.8 g/dL (13.5-17.5); Mean Corpuscular Hemoglobin 31.7 pg (28.0-32.0); Mean Corpuscular Volume 93.2 fL (80.0-100.0); Nucleated Red Blood Cells % 0.0 %
[2025-05-29 16:18] LABS: Albumin 4.5 g/dL (3.2-4.8); Alkaline Phosphatase 109 U/L (46-116); Anion Gap 6 (5-15); BUN/Creatinine Ratio 19.5 (10.0-20.0); Blood Urea Nitrogen 26 mg/dL (9-23); Carbon Dioxide 27 mmol/L (20-31); Chloride 95 mmol/L (98-107); Glucose 234 mg/dL (74-106); Potassium 4.1 mmol/L (3.5-5.1); Sodium 128 mmol/L (136-145); Total Protein 6.7 g/dL (5.7-8.2)
[2025-05-29 16:19] LABS: Alanine Aminotransferase 42 U/L (7-40); Bilirubin, Total 1.0 mg/dL (0.2-1.0); Calcium 10.5 mg/dL (8.7-10.4)
[2025-05-29] MEDS: LACTULOSE 20Gm/30ML SOLN PO SCH (21:32)
[2025-05-30] VITALS (16 sets, daily range): BP systolic 119–132; BP diastolic 74–96; PULSE 70–95; RESP 16–19; TEMP 36.4; O2SAT 92–99
[2025-05-30 09:09] LABS: Hematocrit 51.8 % (41.0-53.0); Hemoglobin 17.6 g/dL (13.5-17.5); Mean Corpuscular Hemoglobin 31.6 pg (28.0-32.0); Mean Corpuscular Volume 93.0 fL (80.0-100.0); Nucleated Red Blood Cells % 0.1 %
[2025-05-30 09:14] LABS: Albumin 4.5 g/dL (3.2-4.8); Alkaline Phosphatase 105 U/L (46-116); Anion Gap 7 (5-15); BUN/Creatinine Ratio 19.7 (10.0-20.0); Calcium 10.4 mg/dL (8.7-10.4); Carbon Dioxide 27 mmol/L (20-31); Potassium 4.1 mmol/L (3.5-5.1); Total Protein 6.8 g/dL (5.7-8.2)
[2025-05-30 09:15] LABS: Bilirubin, Total 0.8 mg/dL (0.2-1.0)
[2025-05-30 09:16] LABS: Alanine Aminotransferase 43 U/L (7-40); Blood Urea Nitrogen 26 mg/dL (9-23); Chloride 97 mmol/L (98-107); Glucose 173 mg/dL (74-106); Sodium 131 mmol/L (136-145)
[2025-05-30] MEDS: SODIUM CHLORIDE 0.9% 500 ML IV SCH (12:15)
[2025-05-30] MEDS ORDERED: AZIT500T66 PO (13:22)
[2025-05-30] MEDS ORDERED: PRED20TA2 PO (13:22)
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
[2025-05-30 18:13] LABS: Urine Protein, UAD Negative (Negative)
[2025-05-30] MEDS: SODIUM CHLORIDE 0.9% 500 ML IV ONE (19:12)
== END 2025-05-30 19:25 | disposition home or self-care (01) | DRG 140 ==
LOC: EDBD 23:02 → ER 23:02 → OVERFLOW 05-28 04:51 → EAST 05-28 17:11
PROVIDERS: ADMIT Student in an Organized Health Care Education/Training Program; ATTEND Emergency Medicine
PROC: 5A09357 Assistance with Respiratory Ventilation, Less than 24 Consecutive Hours, Continuous Positive Airway Pressure (ICD-10-PCS; principal; 2025-05-30)
DX: J44.1 Chronic obstructive pulmonary disease with (acute) exacerbation (principal); R65.10 Systemic inflammatory response syndrome (SIRS) of non-infectious origin without acute organ dysfunction; E11.42 Type 2 diabetes mellitus with diabetic polyneuropathy; E87.1 Hypo-osmolality and hyponatremia; D72.829 Elevated white blood cell count, unspecified; E11.65 Type 2 diabetes mellitus with hyperglycemia; J98.4 Other disorders of lung; K76.0 Fatty (change of) liver, not elsewhere classified; Z99.81 Dependence on supplemental oxygen; Z68.39 Body mass index [BMI] 39.0-39.9, adult; E66.01 Morbid (severe) obesity due to excess calories; E87.6 Hypokalemia; M10.9 Gout, unspecified; E78.5 Hyperlipidemia, unspecified; N40.1 Benign prostatic hyperplasia with lower urinary tract symptoms; I25.10 Atherosclerotic heart disease of native coronary artery without angina pectoris; F17.210 Nicotine dependence, cigarettes, uncomplicated; R00.0 Tachycardia, unspecified; E83.52 Hypercalcemia; G47.30 Sleep apnea, unspecified; R74.8 Abnormal levels of other serum enzymes; Z98.61 Coronary angioplasty status; H81.399 Other peripheral vertigo, unspecified ear; I10 Essential (primary) hypertension
CPT/HCPCS: 36415; 70450; 71045; 80048; 80053; 81001; 82270; 82962; 83880; 83970; 84443; 84484; 85025; 93005; 94640; 96374; G0378; J1815